=== PATIENT | male | born 1960 | race Caucasian/White ===

== ENCOUNTER 2025-03-04 13:19 | Inpatient (IN) | payer MEDICARE, MEDICAID, SELFPAY ==
[2025-03-04] VITALS (8 sets, daily range): BP systolic 112–154; BP diastolic 77–95; PULSE 70–108; RESP 16–18; TEMP 36.1–37.1; O2SAT 95–100; BMI 20.5
--- NOTE | 2025-03-04 14:11 | EKG_ITS ---
[facility] Test Date: 2025-03-04 Pat Name: CORNELIO ARANDA Department: Room: - Gender: Male [employer]: : [id number] Requested By: Chun Choudhary Order Number: [id number] Reading MD: Chun Choudhary Measurements Intervals [place] Rate: 86 P: 24 MT: 141 QRS: 54 QRSD: 111 T: 77 QT: 337 QTc: 404 Interpretive Statements SINUS RHYTHM MODERATE INTRAVENTRICULAR CONDUCTION DELAY [110+ ms QRS DURATION] Compared to ECG 09/30/2023 14:52:17 Intraventricular conduction delay now present /store/S0/[id number]/ecg/[id number].pdf
--- NOTE | 2025-03-04 14:11 | XR_ITS ---
Examination: CT abdomen with intravenous contrast CT pelvis with intravenous contrast 2-D coronal reconstructions 2-D sagittal reconstructions Date and time of exam:March 04, 2025 7002 hours Comparison July 30, 2020 INDICATIONS: Abdominal pain and vomiting blood today. CTDI: vol (mGy) 7.35 DLP: (mGycm) 309 Technique: Multiple axial sections of the abdomen and pelvis have been obtained. 64 slice high-resolution scanner used. 3 mm axial sections have been obtained, post intravenous injection 30 cc Isovue-300 2-D sagittal, coronal reconstructions obtained. Low dose protocols were performed. One or more of the following dose reduction techniques were used; automated exposure control, adjustment of the mA and/or KV according to patient size, use of iterative reconstruction technique. Findings: 20 mm bleb in the right lower lobe Retrocardiac gastric hernia Gastric mucosa in the antral region axial image 58 is thickened No focal liver lesion No gallstones No pancreatic mass Minimal nodular thickening of the adrenal glands Mild renal parenchymal scar formation No renal or ureteral calculi, no hydronephrosis Heavy abdominal aortic calcification Normal appendix No bowel obstruction Colonic diverticulosis Minimal thickening of the urinary bladder wall which may relate to the patient's prostatomegaly, transverse dimension 5.8 cm Prominent osteopenia. IMPRESSION: Antral gastritis No renal or ureteral calculi, no hydronephrosis Normal appendix No bowel obstruction or diverticulitis Moderate prostatomegaly with mild thickening of the urinary bladder wall, probably related to early outflow obstruction from the patient's prostatomegaly
--- NOTE | 2025-03-04 14:16 | PD.EDGIBLD ---
ED GI Bleed RME/HPI General Chief complaint: GI Bleed Stated complaint: VOMITTING BLOOD Time Seen by Provider: 03/04/25 13:55 Arrival date/time: 03/04/25 13:19 RME / HPI RME / HPI Narrative: 65-year-old male patient with significant history of hypertension, hiatal hernia, upper GI bleed, came in for evaluation regarding vomiting blood. Patient is being vomiting blood with blood clots, for the last 2 days, none yesterday but this morning started to be vomiting again. Patient is vomiting blood clots in front of me. It comes and goes. Patient denies any abdominal pain denies any blood in the stool. Denies any dizziness. Patient has been taking a lot of aspirin lately due to pain to the left shoulder. He told me he had no Tylenol at home that is why he is taking aspirin several tablets a day for the last 1 week. Related Data Home Medications ?Medication ?Instructions ?Recorded ?Confirmed aspirin 81 mg tablet,delayed 81 mg PO QDAY 11/23/18 11/23/18 release benazepril 40 mg tablet 40 mg PO QDAY 11/23/18 11/23/18 hydrochlorothiazide 12.5 mg capsule 12.5 mg PO QDAY 11/23/18 11/23/18 metoprolol succinate 25 mg 25 mg PO BID 11/23/18 11/23/18 tablet,extended release 24 hr omeprazole 20 mg capsule,delayed 20 mg PO QDAY 11/23/18 11/23/18 release Previous Rx's ?Medication ?Instructions ?Recorded ondansetron 4 mg disintegrating 4 mg PO Q8H PRN nausea and 09/30/23 tablet vomiting #10 tabs Allergies Allergy/AdvReac Type Severity Reaction Status Date / Time No Known Allergies Allergy Unverified 11/23/18 10:50 Review of Systems Review of Systems Narrative Review of Systems: Review of system reviewed and within normal limits except mentioned in HPI ED Exam Narrative Physical exam: VITAL SIGNS: Reviewed. GENERAL APPEARANCE: Alert and interactive, follows commands, no acute distress, HEAD AND FACE: Non-traumatic. ENT: PERRL, pink conjunctivitis, eyelid no trauma, Mucous membrane moist. NECK: Supple, nontender, no nuchal rigidity. CHEST: No tenderness, no crepitus, no paradoxical movement, no retractions. LUNGS: Clear, well ventilated, symmetric, no rales, no wheezing, no ronchi, no stridor, good breath sounds bilaterally. HEART: Regular rate, regular rhythm, no murmur, no gallops. ABDOMEN: Soft, positive bowel sounds, nondistended, no guarding, nontender, no rebound, no masses, RECTAL: Deferred. GENITAL: Deferred. NEUROLOGICAL: Gross motor function intact sensory function intact, Appropriate for age. MUSCULOSKELETAL: low back nontender, full range of motion. EXTREMITIES: Nontender, full range of motion. SKIN: Color pink, dry, no rash, no lacerations, no abrasions, no contusions. LYMPHATICS: Deferred. Course Quality Measures none Orders Category Date Time Status COVID-19 Screening Questionnaire NOW Care 03/04/25 21:[address] Screening NOW Care 03/04/25 14:11 Active Decision to Admit X1 Care 03/04/25 21:14 Completed EKG (ED ONLY) *Do not use* NOW Care 03/04/25 14:11 Completed Endoscopy Consents .On arrival Care 03/04/25 19:57 Active NPO NOW Care 03/04/25 19:37 Active NPO NOW Care 03/04/25 19:57 Active Occult Blood,Stool (Nursing) NOW Care 03/04/25 14:11 Active Consult to Gastroenterology Stat Cons 03/04/25 18:30 Ordered Diet NPO (NOW) Diet 03/04/25 19:37 Completed Diet NPO (NOW) Diet 03/04/25 19:[address] abdomen pelvis w con Stat Exams 03/04/25 14:11 Completed EKG (ED Only) Stat Exams 03/04/25 14:11 Draft US venous doppler LE BI Stat Exams 03/04/25 20:48 Completed CBC Stat Lab 03/04/25 14:28 Completed Comprehensive Metabolic Panel Stat Lab 03/04/25 14:28 Completed Partial Thromboplastin Time Stat Lab 03/04/25 14:28 Completed Prothrombin Time with INR Stat Lab 03/04/25 14:28 Completed Troponin I Stat Lab 03/04/25 14:28 Completed Type and Screen Stat Lab 03/04/25 14:28 Completed Urinalysis Stat Lab 03/04/25 21:23 Completed Metoclopramide Inj [Reglan Inj] Med 03/04/25 14:14 Discontinued 10 mg IVP X1 ONE Octreotide Acet Inj [SandoSTATIN Inj] Med 03/04/25 14:14 Discontinued 50 mcg IV X1 ONE Pantoprazole Inj [Protonix Inj] Med 03/04/25 14:14 Discontinued 80 mg IVP X1 ONE Ringers Lactated 1000 ml [Lactated Ringers] 1,000 ml Med 03/04/25 21:51 Active IV 100 mls/hr Ringers Lactated 1000 ml [Lactated Ringers] 1,000 ml Med 03/04/25 15:04 Discontinued IV 999 mls/hr Sodium Chloride 0.9% [Ns] 100 ml Med 03/04/25 14:30 Active Octreotide Acet Inj [SandoSTATIN Inj] 1,000 mcg IV 50 mcg/hr Sodium Chloride 0.9% [Ns] 100 ml Med 03/05/25 10:30 Pending Octreotide Acet Inj [SandoSTATIN Inj] 1,000 mcg IV 50 mcg/hr cefTRIAXone/D5w 1gm IV premix [Rocephin/D5w 1gm IV Med 03/04/25 14:15 Discontinued premix] 1 gm in 50 ml IV X1 Vital Signs Vital signs: Vital Signs Temperature 98.7 F 03/04/25 13:24 Pulse Rate 108 H 03/04/25 13:24 Respiratory Rate 18 03/04/25 13:24 Blood Pressure 154/86 H 03/04/25 13:24 Pulse Oximetry (%) 100 03/04/25 13:24 Oxygen Delivery Method Room Air 03/04/25 13:24 GI Bleed MDM Narrative MDM Narrative:: 65-year-old male patient with significant history of hypertension, hiatal hernia, upper GI bleed, came in for evaluation regarding vomiting blood. Patient is being vomiting blood with blood clots, for the last 2 days, none yesterday but this morning started to be vomiting again. Patient is vomiting blood clots in front of me. It comes and goes. Patient denies any abdominal pain denies any blood in the stool. Denies any dizziness. Patient has been taking a lot of aspirin lately due to pain to the left shoulder. He told me he had no Tylenol at home that is why he is taking aspirin several tablets a day for the last 1 week. Patient received IV fluids, Reglan, Protonix IV, IV Sandostatin, and Sandostatin drip, on multiple evaluation normal recurrence of vomiting blood in the ED. Patient's laboratory workup hemoglobin is normal CMP creatinine 1.4 BUN of 42 troponin 0.063 patient is not having any chest pain urinalysis no UTI CT scan of the abdomen showed Antral gastritis No renal or ureteral calculi, no hydronephrosis Normal appendix No bowel obstruction or diverticulitis Moderate prostatomegaly with mild thickening of the urinary bladder wall, probably related to early outflow obstruction from the patient's prostatomegaly Plan discussed with the patient who agrees to be admitted. I discussed this case with Dr. Tate, GI specialist on-call, who examined the patient in the emergency room. Patient data External records reviewed:: None Clinical information provided by:: patient Social determinants that could affect healthcare access:: none Patient has the following chronic illnesses:: Hypertension history of hiatal hernia How is presenting disease/condition affected by chronic disease/condition?: exacerbated by Evaluation data The following diagnostics were reviewed and interpreted by me:: lab results, radiology exam(s) and EKG tracing(s) Lab and/or radiology exams considered but not ordered:: None Interpretation Summary: EKG showed normal sinus rhythm, ventricular rate of 86 bpm, no ST segment elevation depression noted. Medications / Prescriptions Medications or Prescriptions considered but not ordered:: None Medication administrations:: Medication Administration History Acetaminophen (Acetaminophen 325 Mg Tablet) 650 mg PO Q6H PRN PRN Reason: Fever >101.5 Stop: 04/03/25 21:51 Octreotide Acetate 1,000 mcg/ (Sodium Chloride) 102 mls @ 5.1 mls/hr IV .Q20H MARIA ESTHER; Protocol Stop: 04/04/25 10:29 Octreotide Acetate 1,000 mcg/ (Sodium Chloride) 102 mls @ 5.1 mls/hr IV .Q20H ONE; Protocol Stop: 03/05/25 10:29 Last Admin: 03/04/25 14:50 Dose: 50 mcg/hr, 5.1 mls/hr Documented By: EH Lactated Ringer's (Lactated Ringers) 1,000 mls @ 100 mls/hr IV .Q10H MARIA ESTHER Stop: 03/05/25 07:50 Last Admin: 03/04/25 22:40 Dose: 100 mls/hr Documented By: AC Ondansetron HCl (Ondansetron Inj 2 Mg/Ml Inj 2 Ml) 4 mg IVP Q6H PRN; Protocol PRN Reason: NAUSEA OR VOMITING Stop: 04/03/25 21:51 Pantoprazole Sodium (Pantoprazole Inj 40 Mg Vial) 40 mg IVP QDAY MARIA ESTHER Stop: 04/04/25 08:59 Discontinued Medications Ceftriaxone Sodium/Dextrose (Rocephin/D5w 1gm Iv Premix) 1 gm in 50 mls @ 100 mls/hr IV X1 ONE Stop: 03/04/25 14:44 Last Infusion: 03/04/25 15:13 Dose: Infused Documented By: Admin: 03/04/25 14:47 Dose: 100 mls/hr Documented By: KIRSTIE Lactated Ringer's (Lactated Ringers) 1,000 mls @ 999 mls/hr IV .Q1H1M ONE Stop: 03/04/25 16:04 Last Infusion: 03/04/25 16:45 Dose: Infused Documented By: Admin: 03/04/25 15:43 Dose: 999 mls/hr Documented By: JOSIE Metoclopramide HCl (Metoclopramide Inj 5 Mg/Ml Vial 2 Ml) 10 mg IVP X1 ONE; Protocol Stop: 03/04/25 14:15 Last Admin: 03/04/25 14:38 Dose: 10 mg Documented By: Octreotide Acetate (Octreotide Acet Inj 50 Mcg/Ml Vial) 50 mcg IV X1 ONE Stop: 03/04/25 14:15 Last Admin: 03/04/25 14:39 Dose: 50 mcg Documented By: Pantoprazole Sodium (Pantoprazole Inj 40 Mg Vial) 80 mg IVP X1 ONE Stop: 03/04/25 14:15 Last Admin: 03/04/25 14:39 Dose: 80 mg Documented By: Reglan pantoprazole IV fluids ceftriaxone IV Sandostatin Consultations Consultation(s) initiated? (list below): Yes Consultation #1 (Physician, Specialty, Details): Dr. Tate, GI specialist on-call, thank you Dr. Tate Diagnosis GI bleed differential diagnosis: esophageal varices, Kelly-Taylor syndrome and Upper gastrointestinal hemorrhage Most likely diagnosis given after review of the tests above:: Vomiting blood, upper GI bleed Admission Indicated Admission indicated?: indicated Admission Request Was there a request for admission?: Yes Admission Attestation Admission request attestation: Discussed case with [Dr. Stephenson] from Hospitalist service regarding admission. Discussed patients ED course, exam findings, labs, and radiology results. The Hospitalist [agrees] to accept the patient for admission. Disposition Plan Disposition Plan: Admit Discharge Plan Plan Patient Disposition: Admit Acute Care w/in Hospital Problem List Clinical Impression: Acute upper GI bleed
[2025-03-04] MEDS: METOCLOPRAMIDE INJ 5 MG/ML VIAL 2 ML 10 MG IVP (14:38)
[2025-03-04] MEDS: OCTREOTIDE ACET INJ 50 mCg/ML VIAL IV (14:39)
[2025-03-04] MEDS: PANTOPRAZOLE INJ 40 MG VIAL 80 MG IVP (14:39)
[2025-03-04 14:40] LABS: Basophils % (Auto) 0 % (0-2.5); Eosinophils % (Auto) 0 % (0-10); Hematocrit 42.5 % (41.0-53.0); Immature Granulocytes % (Auto) 1 % (0-0); Immature Granulocytes Auto 0.08 Thou/mm3 (0.00-0.00); Lymphocytes % (Auto) 9 % (10-50); Mean Corpuscular HGB Conc 35.3 g/dl (31.0-37.0); Mean Corpuscular Hemoglobin 29.6 pg (25.0-35.0); Mean Corpuscular Volume 84 fL (80-100); Monocytes # (Auto) 0.5 Thou/mm3 (0.0-0.8); Monocytes % (Auto) 5 % (0-12); Neutrophils # (Auto) 9.4 Thou/mm3 (1.8-7.7); Neutrophils % (Auto) 85 % (37-80); Nucleated Red Blood Cell % 0 /100 WBC (0); Platelet Count 216 Thou/mm3 (140-440); RDW Standard Deviation 51.1 fL (35.1-43.9); Red Blood Count 5.06 Miln/mm3 (4.50-5.90); White Blood Count 11.1 Thou/mm3 (3.8-10.6)
[2025-03-04] MEDS: cefTRIAXone/D5w 1gm IV premix 1 GM/50 ML BAG IV (14:47)
[2025-03-04] MEDS: OCTREOTIDE ACET INJ 1,000 MCG in SODIUM CHLORIDE 0.9% 100 ML 5.1 MCG IV (14:50)
[2025-03-04 14:53] LABS: INR 1.6 (0.9-1.3); Partial Thromboplastin Time 29.6 Seconds (22.0-36.0); Prothrombin Time 16.7 Seconds (9.0-12.2)
[2025-03-04 15:01] LABS: Albumin, Serum 4.8 gm/dL (3.4-4.8); Albumin/Globulin Ratio 1.5 (1.2-2.2); Alkaline Phosphatase 64 U/L (46-116); Anion Gap 13 (7-16); Aspartate Amino Transferase 26 U/L (0-34); BUN/Creatinine Ratio 30 Ratio (12-20); Bilirubin,Total 0.2 mg/dL (0.3-1.2); Blood Urea Nitrogen 42 mg/dL (9-23); Calcium 9.3 mg/dL (8.3-10.6); Calcium (Corrected) 9.3 mg/dL (8.5-10.1); Carbon Dioxide 23.7 mMol/L (20.0-31.0); Chloride 101 mMol/L (98-107); Creatinine (Component) 1.4 mg/dL (0.6-1.3); Estimated Creatinine Clearance 52.6 mL/min (>60); Globulin 3.1 gm/dL (2.3-3.5); Glucose 153 mg/dL (74-106); Osmolality,Calculated 289 (275-295); Potassium 3.9 mMol/L (3.4-5.1); Sodium 138 mMol/L (136-145); Total Protein 7.9 gm/dL (5.7-8.2); eGFR 55 See Note
[2025-03-04 15:03] LABS: Troponin I 0.063 ng/mL (0.0-0.045)
[2025-03-04 15:07] LABS: Alanine Aminotransferase 9 U/L (10-49)
[2025-03-04] MEDS: RINGERS LACTATED 1000 ML 1,000 ML 999 ML IV (15:43)
--- NOTE | 2025-03-04 19:10 | PC.NURSE ---
ASSUMED CARE OF PATIENT, PT ALERT/ORIENTED AND IN NO ACUTE DISTRESS, PT STATES HE STARTED VOMITING BLOOD TODAY WITH MILD ABDOINAL PAIN, PT CURRENTLY HAS OCTEOTRIDE RUNNING WITH NO ISSUES, POSSIBLE PLANNING FOR ADMIT, WAITING FOR GI DR BECKWITH, WILL CONTINUE WITH PLAN OF CARE
--- NOTE | 2025-03-04 19:53 | PD.IMCONS ---
HPI Data of Consult Primary Care Provider: Shagufta Kelley NP Consult Narrative Reason for consult: Hematemesis History of present illness: 65-year-old male came into the emergency room because of hematemesis He also had hematemesis in the ER all the presenting hemoglobin hematocrit is very reasonable at 15.0 and 42.5 and a platelet count 216,000 Patient does have a history of previous GI bleed essential hypertension and hiatal hernia Patient has been taking a lot of aspirin for the left shoulder pain cc:: cc: Review of Systems Review of Systems Systems Reviewed: All systems reviewed, normal except as documented Past Medical History Surgical History OTHER SURGICAL HX: As in the history of present illness Meds Home Medications and Allergies Home Medications ?Medication ?Instructions ?Recorded ?Confirmed ?Type aspirin 81 mg tablet,delayed 81 mg PO QDAY 11/23/18 11/23/18 History release benazepril 40 mg tablet 40 mg PO QDAY 11/23/18 11/23/18 History hydrochlorothiazide 12.5 mg capsule 12.5 mg PO QDAY 11/23/18 11/23/18 History metoprolol succinate 25 mg 25 mg PO BID 11/23/18 11/23/18 History tablet,extended release 24 hr omeprazole 20 mg capsule,delayed 20 mg PO QDAY 11/23/18 11/23/18 History release Allergies Allergy/AdvReac Type Severity Reaction Status Date / Time No Known Allergies Allergy Unverified 11/23/18 10:50 Exam Vital Signs Temp Pulse Resp BP Pulse Ox O2 Del Method 97.0 F 79 16 147/95 H 100 Room Air 03/04/25 18:34 03/04/25 19:09 03/04/25 19:09 03/04/25 19:09 03/04/25 19:09 03/04/25 19:09 Routine Respiratory Exam Comments: Normal to auscultation Routine Abdominal Exam Comments: Soft nontender Results Labs 03/04/25 14:28 03/04/25 14:28 Labs: Short CBC 03/04/25 Range/Units 14:28 WBC 11.1 H (3.8-10.6) Thou/mm3 Hgb 15.0 (13.5-16.0) g/dL Hct 42.5 (41.0-53.0) % Plt Count 216 (140-440) Thou/mm3 BMP 03/04/25 14:28 Sodium 138 Potassium 3.9 Chloride 101 Carbon Dioxide 23.7 BUN 42 H Creatinine 1.4 H Glucose 153 H Calcium 9.3 Cardiac Enzymes 03/04/25 Range/Units 14:28 Troponin I 0.063 H* (0.0-0.045) ng/mL Liver Function 03/04/25 Range/Units 14:28 Total Bilirubin 0.2 L (0.3-1.2) mg/dL AST 26 (0-34) U/L ALT 9 L (10-49) U/L Alkaline Phosphatase 64 (46-116) U/L Albumin 4.8 (3.4-4.8) gm/dL Assessment and Plan Additional Assessment & Plan Additional Plan: # Hematemesis Plan Serial CBCs IV Protonix N.p.o. midnight tonight except p.o. meds Consent obtained for fiberoptic esophagogastroduodenoscopy with possible biopsy possible therapeutic intervention under intravenous moderate sedation Other medical problems include Essential hypertension Thank you very much for the opportunity to participate in the care of this patient
--- NOTE | 2025-03-04 20:06 | PC.NURSE ---
DR BECKWITH AT BEDSIDE, STATES PATIENT NPO AFTER MIDNIGHT AND GOT CONSENT FOR ENDOSCOPY IN AM
--- NOTE | 2025-03-04 20:48 | XR_ITS ---
Examination: Venous duplex lower extremity sonogram, bilateral. Date and time of exam: March 04, 2025 2125 hours INDICATIONS: Chest pain and shortness of breath, clinical diagnosis DVT Technique: Multiple sonographic images of the deep venous system have been obtained. B-mode/2-D grayscale imaging of vascular structures and Doppler spectral analysis (waveforms) and color performed Both legs are examined. Findings: Deep venous systems do not demonstrate abnormal echogenicity. All visualized deep veins exhibit compressibility. All visualized deep veins exhibit augmentation. Impression: Negative for deep vein thrombosis
[2025-03-04 21:38] LABS: Collection Type, Urine Clean Catch
--- NOTE | 2025-03-04 21:50 | PD.RESHP ---
Documentation for date of: 03/04/25 HPI History of Present Illness Chief complaint: Hematemesis History of present illness: 65-year-old male with significant past medical history of hypertension, hiatal hernia s/p repair, GERD, chronic smoker presented to the hospital with chief complaints of vomiting of blood since 3 days. Patient reported that he is having left shoulder pain since 1 month for which he is taking aspirin since 4 weeks and took few doses of Alleve a week before the day of hospital admission. Patient noticed vomiting of kade blood clots 3 days ago and noted to have multiple episodes since then. As patient continued to have multiple episodes of vomiting of blood, stopped taking aspirin on the day of admission despite of which patient continued to have bloody emesis for which patient came to the ED for further evaluation and management. Denies abdominal pain, blood discoloration or blood in the stools, similar episodes in the past, recent weight loss, altered bowel habits. Patient reported that he had hiatal hernia repair multiple times about 6 to 7 years ago and since then he is having reflux for which he is using Pepcid and stopped taking it 1 week ago as patient ran out of the medication. Last visit to primary care provider is 1 year back. ED course: - Vitals at the time of admission are significant for blood pressure 154/86 mmHg, pulse rate 108 bpm - Labs are significant for WBC 11.1, Hb 15, platelets 216, INR 1.6, BUN 42, creatinine 1.4 - CT abdomen/pelvis showed antral gastritis, colonic diverticulosis, retrocardiac gastric hernia. - In the ED, patient was given 80 Mg of pantoprazole, 1 L of LR bolus and started on octreotide drip Past medical history: Hypertension, GERD Past surgical history: Hiatal hernia repair Social history: Actively smoking 1 pack a day, drinks 1 beer a day. Denies any other illicit drug abuse. Lives at home with his partner Allergies: NKDA Review of Systems Review of Systems Systems Reviewed: All systems reviewed, normal except as documented Past Medical History Past Medical History CARDIAC: Positive Cardiac Disorders, Peripheral Vascular Disease (vascular stent, unsure which leg) and Hypertension (NON-COMPLIANT) GASTROINTESTINAL: Positive Gastrointestinal Bleed and Hiatal Hernia MUSCULOSKELETAL: Positive Fractures (left index finger amputated, right hand fracture) OTHER HISTORY: Positive MRSA (right arm 2006), Chicken Pox, Measles and Mumps Family History FAMILY HISTORY: Positive Family Cardiac Disorders (dad-OR) and Family Cancer (brother-melanoma) Surgical History SURGICAL: Positive Tonsillectomy Social History SMOKING STATUS: Heavy (> 1 pack/day) SUBSTANCE USE: does not use Exam Vital Signs Temp Pulse Resp BP Pulse Ox O2 Del Method 97.0 F 77 18 114/79 97 Room Air 03/04/25 18:34 03/04/25 21:14 03/04/25 21:14 03/04/25 21:14 03/04/25 21:14 03/04/25 21:14 Narrative Exam General: Awake. HEENT: Normocephalic, atraumatic, mucous membranes moist. Heart: Regular rate and rhythm, no murmurs. Lungs: Clear to auscultation with no wheezing or crackles. Abdomen: Soft, nondistended, nontender, positive bowel sounds. ?No guarding or rebound tenderness. Neurologic: Alert and oriented x3, no gross neurological deficit, and patient able to move all 4 extremities. Extremities: No edema. 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 Results: Labs 03/04/25 14:28 03/04/25 14:28 Labs: Short CBC 03/04/25 Range/Units 14:28 WBC 11.1 H (3.8-10.6) Thou/mm3 Hgb 15.0 (13.5-16.0) g/dL Hct 42.5 (41.0-53.0) % Plt Count 216 (140-440) Thou/mm3 BMP 03/04/25 14:28 Sodium 138 Potassium 3.9 Chloride 101 Carbon Dioxide 23.7 BUN 42 H Creatinine 1.4 H Glucose 153 H Calcium 9.3 Cardiac Enzymes 03/04/25 Range/Units 14:28 Troponin I 0.063 H* (0.0-0.045) ng/mL Liver Function 03/04/25 Range/Units 14:28 Total Bilirubin 0.2 L (0.3-1.2) mg/dL AST 26 (0-34) U/L ALT 9 L (10-49) U/L Alkaline Phosphatase 64 (46-116) U/L Albumin 4.8 (3.4-4.8) gm/dL Quality Measures Quality Measures VTE prophylaxis Advance care planning discussed with:: patient Medications Home Medications and Allergies Home Medications ?Medication ?Instructions ?Recorded ?Confirmed ?Type aspirin 81 mg tablet,delayed 81 mg PO QDAY 11/23/18 11/23/18 History release benazepril 40 mg tablet 40 mg PO QDAY 11/23/18 11/23/18 History hydrochlorothiazide 12.5 mg capsule 12.5 mg PO QDAY 11/23/18 11/23/18 History metoprolol succinate 25 mg 25 mg PO BID 11/23/18 11/23/18 History tablet,extended release 24 hr omeprazole 20 mg capsule,delayed 20 mg PO QDAY 11/23/18 11/23/18 History release Allergies Allergy/AdvReac Type Severity Reaction Status Date / Time No Known Allergies Allergy Unverified 11/23/18 10:50 Visit Medications Octreotide Acetate 1,000 mcg/ (Sodium Chloride) 102 mls @ 5.1 mls/hr IV .Q20H MARIA ESTHER; Protocol Stop: 04/04/25 10:29 Octreotide Acetate 1,000 mcg/ (Sodium Chloride) 102 mls @ 5.1 mls/hr IV .Q20H ONE; Protocol Stop: 03/05/25 10:29 Last Admin: 03/04/25 14:50 Dose: 50 mcg/hr, 5.1 mls/hr Discontinued Medications Ceftriaxone Sodium/Dextrose (Rocephin/D5w 1gm Iv Premix) 1 gm in 50 mls @ 100 mls/hr IV X1 ONE Stop: 03/04/25 14:44 Last Infusion: 03/04/25 15:13 Dose: Infused Lactated Ringer's (Lactated Ringers) 1,000 mls @ 999 mls/hr IV .Q1H1M ONE Stop: 03/04/25 16:04 Last Infusion: 03/04/25 16:45 Dose: Infused Metoclopramide HCl (Metoclopramide Inj 5 Mg/Ml Vial 2 Ml) 10 mg IVP X1 ONE; Protocol Stop: 03/04/25 14:15 Last Admin: 03/04/25 14:38 Dose: 10 mg Octreotide Acetate (Octreotide Acet Inj 50 Mcg/Ml Vial) 50 mcg IV X1 ONE Stop: 03/04/25 14:15 Last Admin: 03/04/25 14:39 Dose: 50 mcg Pantoprazole Sodium (Pantoprazole Inj 40 Mg Vial) 80 mg IVP X1 ONE Stop: 03/04/25 14:15 Last Admin: 03/04/25 14:39 Dose: 80 mg Assessment & Plan Plan 65-year-old male with significant past medical history of hypertension, hiatal hernia s/p repair, GERD, chronic smoker presented to the hospital with chief complaints of vomiting of blood since 3 days # GI bleed, likely upper GI # Gastritis versus gastric ulcer - Presented to the hospital with chief complaints of hematemesis - Denies blackish discoloration or bloody bowel movements, abdominal pain - Denies similar history in the past - Vitals are stable at the time of admission. Physical examination remains unremarkable - Labs at admission showed hemoglobin 15, platelets 216, INR 1.6 - CT abdomen/pelvis showed antral gastritis, colonic diverticulosis - Rockall score is 1 - In the ED, patient is given 80 Mg of IV pantoprazole and 1 L of LR bolus, started on octreotide drip Plan - Hydrology Professor, Dr. Tate was consulted and he recommended endoscopy tomorrow - Kept on n.p.o. - Pantoprazole 40 Mg IV daily, will continue octreotide drip till endoscopy and will continue based on findings - Started on IV fluids, LR at 100 mL/h - Monitor CBC and transfuse if Hb less than 7 #YOHANA, likelly prerenal versus CKD - At the time of admission, BUN is 42, creatinine 1.4 - Baseline creatinine in in 2022 is 1 Plan - 1 L LR boluses given in the ED - Renal ultrasound ordered - Started on LR at 100 mL/h - Monitor renal functions and renally dose medications - Strict input and output is ordered # History of hypertension - Patient does not know the exact name of medication - Home medication reconciliation is ordered - Initial blood pressure in the ED is 154/86 mmHg, later blood pressure came back to within normal limits without any medications Plan - Will continue to monitor blood pressures for now - Will add medications as needed Hospital Maintenance: Dispo: Tele DVT ppx: SCD GI ppx: Panoprazole Diet: NPO for endoscopy IV lines: Peripheral Code status: Full Patient plan of care was discussed with the attending physician, Dr. Anderson Stephenson, PGY1 Attending Provider Attestation/Addendum I have examined the patient, reviewed labs and imaging findings, discussed the case with the resident(s), and reviewed entered orders. I agree with the plan of care as outlined in this note, with these additional summaries/recommendations: 65-year-old male with past medical history of hiatal hernia, GERD, chronic smoker, recent significant NSAID use presents to the ED with chief complaint of hematemesis times multiple episodes. Patient reports recent NSAID use secondary to shoulder pain and has been taking excessive amounts of them. Labs also significant for YOHANA and mild troponin elevation without chest pain, likely type II. GI was consulted in the ER who recommended admission for further workup and management of hematemesis with blood clots. See patient n.p.o. and start on Protonix, close monitoring of H&H. Tomas Barron MD
[2025-03-04 21:58] LABS: Bilirubin,Urine Negative (Negative); Blood,Urine Negative (Negative); Clarity,Urine Clear (Clear/Hazy); Color,Urine Yellow (Lt Yel-Yel); Glucose, Urine Negative (Negative); Ketones,Urine 1+ (Negative); Leukocyte Esterase,Urine Negative (Negative); Nitrite,Urine Negative (Negative); Protein,Urine Trace (Neg - Trace); RBC,Urine 4 /hpf (0-3); Specific Gravity,Urine 1.046 (1.001-1.035); Squamous Epithelial Cell,Urine 1 /hpf (0-5); Urobilinogen,Urine Negative mg/dL (0.0-1.0); WBC,Urine 1 /hpf (0-5)
--- NOTE | 2025-03-04 22:12 | XR_ITS ---
Examination: Abdomen sonogram, Limited Date and time of exam: March 04, 2025 10:30 PM INDICATIONS: CT abdomen and pelvis study today antral gastritis Technique: Real-time sevilla scale transabdominal sonographic images of the upper abdomen obtained. Findings: Normal gallbladder Normal common bile duct 0.4 cm Pancreas obscured by bowel gas Liver 16 cm fatty infiltration no focal liver lesions Normal bilateral renal horn meniscal Patent IVC IMPRESSION: Normal gallbladder Fatty liver
[2025-03-04] MEDS: RINGERS LACTATED 1000 ML 1,000 ML 100 ML IV (22:40)
--- NOTE | 2025-03-04 22:43 | PC.NURSE ---
report given to floor nurse alexander
[2025-03-05] VITALS (35 sets, daily range): BP systolic 97–158; BP diastolic 69–124; PULSE 54–89; RESP 12–20; TEMP 36–37; O2SAT 94–99
[2025-03-05 06:01] LABS: Basophils # (Auto) 0.1 Thou/mm3 (0.0-0.2); Basophils % (Auto) 1 % (0-2.5); Eosinophils % (Auto) 0 % (0-10); Hemoglobin 12.2 g/dL (13.5-16.0); Immature Granulocytes % (Auto) 1 % (0-0); Immature Granulocytes Auto 0.07 Thou/mm3 (0.00-0.00); Lymphocytes # (Auto) 1.6 Thou/mm3 (1.0-4.8); Lymphocytes % (Auto) 20 % (10-50); Mean Corpuscular HGB Conc 34.9 g/dl (31.0-37.0); Mean Corpuscular Volume 86 fL (80-100); Monocytes # (Auto) 0.6 Thou/mm3 (0.0-0.8); Monocytes % (Auto) 8 % (0-12); Neutrophils # (Auto) 5.6 Thou/mm3 (1.8-7.7); Neutrophils % (Auto) 70 % (37-80); Nucleated Red Blood Cell % 0 /100 WBC (0); Platelet Count 243 Thou/mm3 (140-440); Red Blood Count 4.07 Miln/mm3 (4.50-5.90)
[2025-03-05 06:13] LABS: Glucose Estimated Average 120 mg/dL (80-131); Hemoglobin A1C 5.8 % Hgb (4.8-6.0)
[2025-03-05 06:20] LABS: INR 1.4 (0.9-1.3); Partial Thromboplastin Time 32.5 Seconds (22.0-36.0); Prothrombin Time 15.4 Seconds (9.0-12.2)
[2025-03-05 06:22] LABS: Alanine Aminotransferase 8 U/L (10-49); Albumin, Serum 4.1 gm/dL (3.4-4.8); Albumin/Globulin Ratio 1.5 (1.2-2.2); Alkaline Phosphatase 51 U/L (46-116); Anion Gap 11 (7-16); Aspartate Amino Transferase 21 U/L (0-34); BUN/Creatinine Ratio 32 Ratio (12-20); Bilirubin,Total 0.3 mg/dL (0.3-1.2); Blood Urea Nitrogen 32 mg/dL (9-23); Calcium 9.2 mg/dL (8.3-10.6); Calcium (Corrected) 9.2 mg/dL (8.5-10.1); Carbon Dioxide 25.1 mMol/L (20.0-31.0); Chloride 100 mMol/L (98-107); Estimated Creatinine Clearance 73.1 mL/min (>60); Globulin 2.7 gm/dL (2.3-3.5); Glucose 125 mg/dL (74-106); Magnesium 1.8 mg/dL (1.6-2.6); Osmolality,Calculated 279 (275-295); Phosphorous 2.4 mg/dL (2.4-5.1); Potassium 3.5 mMol/L (3.4-5.1); Sodium 136 mMol/L (136-145); Thyroid Stimulating Hormone 0.18 uIU/mL (0.55-4.78); Total Protein 6.8 gm/dL (5.7-8.2); eGFR > 60 See Note
[2025-03-05 06:33] LABS: Cardiac Risk Estimate 3.4 RATIO (4.0-6.7); Cholesterol 120 mg/dL (132-200); HDL Cholesterol 35 mg/dL (40-60); LDL Cholesterol,Calculated 64 mg/dL (0-130); Triglycerides 103 mg/dL (30-150)
[2025-03-05 08:41] LABS: Iron 89 mcg/dL (65-175); Percent Iron Saturation 28 % (20-55); Total Iron Binding Capacity 314 mcg/dL (250-425); Unsaturated Iron Binding 225 (225-295)
--- NOTE | 2025-03-05 10:05 | SUR.PHASEI ---
0930: pt arrived to PACU via gurney drowsy but arouses to voice, breathing unlabored, report from Madison RN 0950: pt able to tolerate ice chips without difficulty swallowing or n/v 1000:pt drowsy but arouses to voice, breathing unlabored, VS stable, pt denies pain and nausea, report called to Yolie LEWIS 1005: pt awake, alert, talkative, able to follow commands, pt does not voice any complaints, pt transferred to room at this time.
[2025-03-05] MEDS: SUCRALFATE SUSP 1 GM/10 ML UDC PO ×3 (10:20→20:12)
[2025-03-05] MEDS: MG HYD/AL HYD/SIME (Maalox Reg) SUSP 30 ML UDC PO ×3 (10:20→20:11)
[2025-03-05] MEDS: PANTOPRAZOLE/NS 80MG IV PREMIX 80 MG/100 ML BAG 10 MG IV ×2 (10:21→18:53)
[2025-03-05] MEDS: OCTREOTIDE ACET INJ 1,000 MCG in SODIUM CHLORIDE 0.9% 100 ML 5.1 MCG IV (11:22)
--- NOTE | 2025-03-05 11:49 | ESPR_ITS ---
Documentation for date of: 03/05/25 Subjective Subjective Interval history: Patient seen today at the bedside found awake, alert, orientedx3. No overnight events reported. Vitals and labs reviewed. Patient had EGD this morning and was found with a lot of blood throughout the esophagus and proximal body of the stomach and distal body with clots, ulcer in the proximal body of the stomach with clot. GI recommends at this time keeping the patient n.p.o. starting Carafate and Maalox transfuse 1 unit of fresh frozen plasma and platelets. Will continue with octreotide and Protonix drip at this time. WIll continue to monitor H&H Exam Vital Signs Temp Pulse Resp BP Pulse Ox O2 Del Method O2 Flow Rate 97.6 F 74 16 125/92 H 97 Room Air 6 03/05/25 09:30 03/05/25 10:00 03/05/25 10:00 03/05/25 10:00 03/05/25 10:00 03/05/25 07:40 03/05/25 09:25 Narrative Exam Physical Exam GENERAL: NAD, AAOx3 HEENT: Moist mucosa. Eyes open, symmetrical, & clear CARDIO: Heart RRR, no obvious murmurs PULM: No noted coughing/dyspnea CTA B/L, no R/W/R GI: Abdomen soft, nondistended, no pain on palpation. 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 Pedal pulses present B/L NEURO: AAOx3, no focal neuro deficits, able to move all 4 extremities Objective Labs 03/05/25 14:48 03/05/25 05:21 Labs: Laboratory Results - last 24 hr 03/04/25 03/04/25 03/05/25 14:28 21:23 05:21 WBC 11.1 H 8.0 RBC 5.06 4.07 L Hgb 15.0 12.2 L D Hct 42.5 35.0 L MCV 84 86 MCH 29.6 30.0 MCHC 35.3 34.9 RDW Std Deviation 51.1 H 52.0 H Plt Count 216 243 Neut % (Auto) 85 H 70 Lymph % (Auto) 9 L 20 [place] % (Auto) 5 8 Eos % (Auto) 0 0 Baso % (Auto) 0 1 Neut # (Auto) 9.4 H 5.6 Lymph # (Auto) 1.0 1.6 [place] # (Auto) 0.5 0.6 Eos # (Auto) 0.0 0.0 Baso # (Auto) 0.0 0.1 Immature Gran # (Auto) 0.08 H 0.07 H Absolute Nucleated RBC 0.00 0.00 Immature Gran % 1 H 1 H Nucleated RBC % 0 0 PT 16.7 H 15.4 H INR 1.6 H 1.4 H APTT 29.6 32.5 Sodium 138 136 Potassium 3.9 3.5 Chloride 101 100 Carbon Dioxide 23.7 25.1 Anion Gap 13 11 BUN 42 H 32 H Creatinine 1.4 H 1.0 Estim Creat Clear Calc 52.6 L 73.1 eGFR 55 L > 60 BUN/Creatinine Ratio 30 H 32 H Glucose [address] Glu mg/dL 120 Hemoglobin A1c 5.8 Calculated Osmolality 289 279 Calcium 9.3 9.2 Corrected Calcium 9.3 9.2 Phosphorus 2.4 Magnesium 1.8 Iron TIBC Iron Saturation Unsat Iron Binding Total Bilirubin 0.2 L 0.3 AST 26 21 ALT 9 L 8 L Alkaline Phosphatase 64 51 D Troponin I 0.063 H* Total Protein 7.9 6.8 Albumin 4.8 4.1 D Globulin 3.1 2.7 Albumin/Globulin Ratio 1.5 1.5 Triglycerides 103 Cholesterol 120 L LDL Cholesterol, Calc 64 HDL Cholesterol 35 L Cholesterol/HDL Ratio 3.4 L TSH 0.18 L Ur Collection Type Clean Catch Urine Color Yellow Urine Clarity Clear Urine pH 6.0 Ur Specific Wilbur 1.046 H Urine Protein Trace Urine Glucose (UA) Negative Urine Ketones 1+ A Urine Blood Negative Urine Nitrite Negative Urine Bilirubin Negative Urine Urobilinogen (Auto) Negative Ur Leukocyte Esterase Negative Urine RBC 4 H Urine WBC 1 Ur Squamous Epith Cells 1 Urine Bacteria None Blood Type O Positive Antibody Screen NEGATIVE Blood Bank Wristband ID Yes 03/05/25 05:48 WBC RBC Hgb Hct MCV MCH MCHC RDW Std Deviation Plt Count Neut % (Auto) Lymph % (Auto) [place] % (Auto) Eos % (Auto) Baso % (Auto) Neut # (Auto) Lymph # (Auto) [place] # (Auto) Eos # (Auto) Baso # (Auto) Immature Gran # (Auto) Absolute Nucleated RBC Immature Gran % Nucleated RBC % PT INR APTT Sodium Potassium Chloride Carbon Dioxide Anion Gap BUN Creatinine Estim Creat Clear Calc eGFR BUN/Creatinine Ratio Glucose Estimated Ave Glu mg/dL Hemoglobin A1c Calculated Osmolality Calcium Corrected Calcium Phosphorus Magnesium Iron 89 TIBC 314 Iron Saturation 28 Unsat Iron Binding 225 Total Bilirubin AST ALT Alkaline Phosphatase Troponin I Total Protein Albumin Globulin Albumin/Globulin Ratio Triglycerides Cholesterol LDL Cholesterol, Calc HDL Cholesterol Cholesterol/HDL Ratio TSH Ur Collection Type Urine Color Urine Clarity Urine pH Ur Specific [place]bur Urine Protein Urine Glucose (UA) Urine Ketones Urine Blood Urine Nitrite Urine Bilirubin Urine Urobilinogen (Auto) Ur Leukocyte Esterase Urine RBC Urine WBC Ur Squamous Epith Cells Urine Bacteria Blood Type Antibody Screen Blood Bank Wristband ID Quality Measures Quality Measures none Advance care planning discussed with:: patient Assessment & Plan Assessment Current Active Medications: Generic Name Dose Route Start Last Admin Trade Name Freq PRN Reason Stop Dose Admin Acetaminophen 650 mg 03/04/25 21:52 Acetaminophen 325 Mg Tablet PO 04/03/25 21:51 Q6H PRN Fever >101.5 Al Hydrox/Mg Hydrox/Simethicone 30 ml 03/05/25 09:00 03/05/25 11:18 Mg Hyd/Al Hyd/Maximo (Maalox Reg) Susp 30 Ml Udc PO 04/04/25 08:59 Not Given QID MARIA ESTHER Octreotide Acetate 1,000 mcg/ 102 mls @ 5.1 mls/hr 03/05/25 10:30 03/05/25 11:22 Sodium Chloride IV 04/04/25 10:29 50 mcg/hr .Q20H MARIA ESTHER 5.1 mls/hr Administration Protocol 50 MCG/HR Pantoprazole Sodium 80 mg in 100 mls @ 10 mls/hr 03/05/25 09:52 03/05/25 10:21 Protonix/Ns 80mg Iv Premix IV 03/08/25 07:51 10 mls/hr Q10H MARIA ESTHER Administration Ondansetron HCl 4 mg 03/04/25 21:52 Ondansetron Inj 2 Mg/Ml Inj 2 Ml IVP 04/03/25 21:51 Q6H PRN NAUSEA OR VOMITING Protocol Pantoprazole Sodium 40 mg 03/05/25 09:00 03/05/25 09:54 Pantoprazole Inj 40 Mg Vial IVP 04/04/25 08:59 Not Given QDAY MARIA ESTHER Sucralfate 1 gm 03/05/25 09:00 03/05/25 11:18 Sucralfate Susp 1 Gm/10 Ml Udc PO 04/04/25 08:59 Not Given QID MARIA ESTHER Plan 65-year-old male with significant past medical history of hypertension, hiatal hernia s/p repair, GERD, chronic smoker presented to the hospital with chief complaints of vomiting of blood since 3 days #GI bleed, likely upper GI #Gastric ulcer Presented to the hospital with chief complaints of hematemesis Denies blackish discoloration or bloody bowel movements, abdominal pain Denies similar history in the past Vitals are stable at the time of admission. Physical examination remains unremarkable Labs at admission showed hemoglobin 15, platelets 216, INR 1.6 CT abdomen/pelvis showed antral gastritis, colonic diverticulosis Rockall score is 1 In the ED, patient is given 80 Mg of IV pantoprazole and 1 L of LR bolus, started on octreotide drip EGD showed blood throughout the esophagus and stomach found with an ulcer with blood clots and was clipped ? GI consulted, appreciate recommendations ? Keep n.p.o. ? Protonix drip ? Octreotide drip ? Follow-up H&H ? IVF's #Acute Kidney injury versus CKD BUN 42, creatinine 1.4, baseline seems to be around 1 from 2022 Patient does have an enlarged prostate found on CT states sometimes has difficulty initiating urination however here he is urinating and has no urinary symptoms ? on IVF ? Avoid nephrotoxins ? Renally dose medications ? FENa/Urea, urine microscopy if considering intrarenal etiology ? Pending renal ultrasound for hydronpehrosis if possible postrenal etiology #Hypertension At home patient uses benazepril 40 mg daily, hydrochlorothiazide, metoprolol succinate, however proper medication reconciliation is still pending ? Follow-up med rec ? Will resume antihypertensives as tolerated currently normotensive Hospital Maintenance: Dispo: Tele DVT ppx: SCD GI ppx: Panoprazole Diet: NPO for endoscopy IV lines: Peripheral Code status: Full Case discussed with my attending Dr. Sharyn Velasquez MD PGY-1 Attending Provider Attestation/Addendum Kemi, Marcia Coles DO, attest that I was physically present for the borrego portions of the service and evaluated the patient with the resident and I reviewed and discussed the case with the resident and agree with the resident's findings and plans of care as documented above Patient seen and eval this a.m. He states that he has a complicated history of hiatal hernia repair that was complicated by esophageal stenosis requiring surgery at [facility]. Patient states that he had 2 days of hematemesis with large clots. He describes as having thrown up a bowl of tomato soup that was dark red. Patient states that he has not had hematemesis in the past. However, he endorses using Aleve at home. He states that he was not aware that it can cause GI bleed. Patient underwent endoscopy this morning during which patient was found to have a large clot in his stomach and an ulcer in the proximal body of the stomach. This was cauterized with clips placed. Will watch patient closely at this time and keep NPO. Patient is to receive 1 unit of FFP and platelets. Continue with Carafate and Maalox, as well as octreotide and Protonix drip. Patient states that he drinks 1 beer a day. Will trend H&H. Patient is currently hemodynamically stable. Will continue to monitor volume status as well. He currently denies any fevers, chills, chest pain, shortness of breath, abdominal pain,, lightheadedness otherwise. CT abdomen pelvis does show also evidence of moderate BPH with mild thickening of the urinary bladder wall possibly related to early outflow obstruction. Patient does endorse having increased urinary frequency and straining. Will start patient on tamsulosin if blood pressure permits.
--- NOTE | 2025-03-05 13:39 | XR_ITS ---
Examination: Retroperitoneal ultrasound, complete Technique: Multiple high resolution grayscale images of the retroperitoneum obtained, including kidneys and bladder. Exam date and time:March 05, 2025 1412 hours INDICATIONS: Diagnosis acute renal insufficiency FINDINGS: Right kidney 11.2 cm cortex 1.3 cm Left kidney 10.9 cm cortex 1.9 cm No hydronephrosis or renal calculi Contracted urinary bladder IMPRESSION: Bilateral renal cortical thinning Mild bilateral renal parenchymal scar formation No renal calculi or hydronephrosis
[2025-03-05 15:19] LABS: Hematocrit 32.6 % (41.0-53.0); Hemoglobin 11.4 g/dL (13.5-16.0)
[2025-03-06] VITALS: PULSE 59
[2025-03-06] MEDS: PANTOPRAZOLE/NS 80MG IV PREMIX 80 MG/100 ML BAG 10 MG IV ×3 (02:49→23:09)
[2025-03-06 04:00] VITALS: BP 155/97; PULSE 54; PULSE 55; RESP 19; TEMP 36.1; O2SAT 94
[2025-03-06] MEDS: SUCRALFATE SUSP 1 GM/10 ML UDC PO ×4 (05:05→20:42)
[2025-03-06] MEDS: MG HYD/AL HYD/SIME (Maalox Reg) SUSP 30 ML UDC PO ×4 (05:05→20:42)
[2025-03-06 06:40] LABS: Basophils # (Auto) 0.1 Thou/mm3 (0.0-0.2); Basophils % (Auto) 1 % (0-2.5); Eosinophils # (Auto) 0.1 Thou/mm3 (0.0-0.5); Eosinophils % (Auto) 2 % (0-10); Hematocrit 36.5 % (41.0-53.0); Hemoglobin 12.4 g/dL (13.5-16.0); Immature Granulocytes % (Auto) 1 % (0-0); Immature Granulocytes Auto 0.06 Thou/mm3 (0.00-0.00); Lymphocytes # (Auto) 1.8 Thou/mm3 (1.0-4.8); Lymphocytes % (Auto) 28 % (10-50); Mean Corpuscular Hemoglobin 29.7 pg (25.0-35.0); Mean Corpuscular Volume 88 fL (80-100); Monocytes # (Auto) 0.5 Thou/mm3 (0.0-0.8); Monocytes % (Auto) 8 % (0-12); Neutrophils # (Auto) 3.9 Thou/mm3 (1.8-7.7); Neutrophils % (Auto) 60 % (37-80); Nucleated Red Blood Cell % 0 /100 WBC (0); Platelet Count 230 Thou/mm3 (140-440); RDW Standard Deviation 53.1 fL (35.1-43.9); Red Blood Count 4.17 Miln/mm3 (4.50-5.90); White Blood Count 6.4 Thou/mm3 (3.8-10.6)
[2025-03-06 07:20] LABS: Alanine Aminotransferase 9 U/L (10-49); Albumin, Serum 4.2 gm/dL (3.4-4.8); Albumin/Globulin Ratio 1.7 (1.2-2.2); Alkaline Phosphatase 54 U/L (46-116); Anion Gap 10 (7-16); Aspartate Amino Transferase 24 U/L (0-34); BUN/Creatinine Ratio 34 Ratio (12-20); Bilirubin,Total 0.4 mg/dL (0.3-1.2); Blood Urea Nitrogen 31 mg/dL (9-23); Calcium 8.9 mg/dL (8.3-10.6); Calcium (Corrected) 8.9 mg/dL (8.5-10.1); Carbon Dioxide 28.2 mMol/L (20.0-31.0); Chloride 104 mMol/L (98-107); Creatinine (Component) 0.9 mg/dL (0.6-1.3); Estimated Creatinine Clearance 81.2 mL/min (>60); Globulin 2.5 gm/dL (2.3-3.5); Glucose 97 mg/dL (74-106); Osmolality,Calculated 289 (275-295); Potassium 3.2 mMol/L (3.4-5.1); Sodium 142 mMol/L (136-145); Total Protein 6.7 gm/dL (5.7-8.2); eGFR > 60 See Note
[2025-03-06 08:00] VITALS: BP 123/77; PULSE 53; PULSE 60; RESP 16; TEMP 36.9; O2SAT 95
[2025-03-06] MEDS: POTASSIUM CHL 10 mEq IVPB 10 MEQ/100 ML BAG 100 MEQ IV ×4 (08:06→11:36)
[2025-03-06] MEDS: Magnesium Sulfate 4 GM Ivpb 4 GM/50 ML BAG IV (08:06)
[2025-03-06 11:03] VITALS: BMI 20.4
--- NOTE | 2025-03-06 11:33 | PD.RESPRO ---
Documentation for date of: 03/06/25 Subjective Subjective Interval history: 03/06/2025: No acute overnight events to report. Patient had endoscopy with gastroenterology which showed a gastric ulcer actively bleeding which was endoclipped. Patient also has Kunz's esophagus when she was not aware of but now is. Patient will continue on sucralfate, octreotide drip and Protonix drip and diet will be advanced as tolerated. Patient has received 1 unit of FFP and 1 unit of platelets during the procedure as gastric ulcer was actively bleeding at that time. Currently the patient is hemodynamically stable and labs show improvement in hemoglobin. Patient denies having any concerning symptoms; moreover, will continue to monitor and expect discharge within the next 24 to 48 hours. Exam Vital Signs Temp Pulse Resp BP Pulse Ox O2 Del Method O2 Flow Rate 98.5 F 60 16 123/77 95 Room Air 6 03/06/25 08:00 03/06/25 08:00 03/06/25 08:00 03/06/25 08:00 03/06/25 08:00 03/06/25 08:00 03/05/25 12:46 Narrative Exam Physical Exam: GENERAL: Awake, answering questions appropriately, appears older than stated age HEENT: Moist mucosa. Eyes open, symmetrical, & clear CARDIO: Heart RRR, no obvious murmurs PULM: No noted coughing/dyspnea CTA B/L, no R/W/R GI: Abdomen soft, nondistended, no pain on palpation. 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 Pedal pulses present B/L NEURO: AAOx3, no focal neuro deficits, able to move all 4 extremities Objective Labs 03/07/25 05:15 03/07/25 05:15 Labs: Laboratory Results - last 24 hr 03/04/25 03/05/25 03/06/25 14:28 14:48 05:30 WBC 6.4 RBC 4.17 L Hgb 11.4 L 12.4 L Hct 32.6 L 36.5 L MCV 88 MCH 29.7 MCHC 34.0 RDW Std Deviation 53.1 H Plt Count 230 Neut % (Auto) 60 Lymph % (Auto) 28 [place] % (Auto) 8 Eos % (Auto) 2 Baso % (Auto) 1 Neut # (Auto) 3.9 Lymph # (Auto) 1.8 [place] # (Auto) 0.5 Eos # (Auto) 0.1 Baso # (Auto) 0.1 Immature Gran # (Auto) 0.06 H Absolute Nucleated RBC 0.00 Immature Gran % 1 H Nucleated RBC % 0 Sodium 142 Potassium 3.2 L Chloride 104 Carbon Dioxide 28.2 Anion Gap 10 BUN 31 H Creatinine 0.9 Estim Creat Clear Calc 81.2 eGFR > 60 BUN/Creatinine Ratio 34 H Glucose 97 Calculated Osmolality 289 Calcium 8.9 Corrected Calcium 8.9 Total Bilirubin 0.4 AST 24 ALT 9 L Alkaline Phosphatase 54 Total Protein 6.7 Albumin 4.2 Globulin 2.5 Albumin/Globulin Ratio 1.7 Blood Type O Positive Antibody Screen NEGATIVE Blood Bank Wristband ID Yes Blood Bank Comment PLATP Ready Quality Measures Quality Measures none Advance care planning discussed with:: patient Assessment & Plan Assessment Current Active Medications: Generic Name Dose Route Start Last Admin Trade Name Freq PRN Reason Stop Dose Admin Acetaminophen 650 mg 03/04/25 21:52 Acetaminophen 325 Mg Tablet PO 04/03/25 21:51 Q6H PRN Fever >101.5 Al Hydrox/Mg Hydrox/Simethicone 30 ml 03/05/25 09:00 03/06/25 05:05 Mg Hyd/Al Hyd/Maximo (Maalox Reg) Susp 30 Ml Udc PO 04/04/25 08:59 30 ml QID MARIA ESTHER Administration Octreotide Acetate 1,000 mcg/ 102 mls @ 5.1 mls/hr 03/05/25 10:30 03/06/25 08:08 Sodium Chloride IV 04/04/25 10:29 Not Given .Q20H MARIA ESTHER Protocol 50 MCG/HR Pantoprazole Sodium 80 mg in 100 mls @ 10 mls/hr 03/05/25 09:52 03/06/25 02:49 Protonix/Ns 80mg Iv Premix IV 03/08/25 07:51 10 mls/hr Q10H MARIA ESTHER Administration Magnesium Sulfate 4 gm in 50 mls @ 12.5 mls/hr 03/06/25 07:46 03/06/25 08:06 Magnesium Sulfate Ivpb IV 03/06/25 11:45 12.5 mls/hr X1 ONE Administration Potassium Chloride 10 meq in 100 mls @ 100 mls/hr 03/06/25 07:47 03/06/25 10:24 Kcl Ivpb IV 03/06/25 11:46 100 mls/hr Q1H MARIA ESTHER Administration Ondansetron HCl 4 mg 03/04/25 21:52 Ondansetron Inj 2 Mg/Ml Inj 2 Ml IVP 04/03/25 21:51 Q6H PRN NAUSEA OR VOMITING Protocol Pantoprazole Sodium 40 mg 03/05/25 09:00 03/05/25 09:54 Pantoprazole Inj 40 Mg Vial IVP 04/04/25 08:59 Not Given QDAY MARIA ESTHER Sucralfate 1 gm 03/05/25 09:00 03/06/25 05:05 Sucralfate Susp 1 Gm/10 Ml Udc PO 04/04/25 08:59 1 gm QID MARIA ESTHER Administration Plan 65-year-old male with significant past medical history of hypertension, hiatal hernia s/p repair, GERD, chronic smoker presented to the hospital with chief complaints of vomiting of blood since 3 days #Bleeding gastric ulcer #NSAID induced peptic ulcer disease #Gastritis #Kunz's esophagus Presented to the hospital with chief complaints of hematemesis Denies blackish discoloration or bloody bowel movements, abdominal pain Denies similar history in the past Vitals are stable at the time of admission. Physical examination remains unremarkable Labs at admission showed hemoglobin 15, platelets 216, INR 1.6 CT abdomen/pelvis showed antral gastritis, colonic diverticulosis Rockall score is 1 In the ED, patient is given 80 Mg of IV pantoprazole and 1 L of LR bolus, started on octreotide drip EGD showed blood throughout the esophagus and stomach found with an ulcer with blood clots and was clipped Plan: GI consulted, appreciate recommendations Advancing diet as tolerated Protonix drip Octreotide drip Follow-up with PCP regarding the patient's Kunz's esophagus, reevaluation with surveillance endoscopy #Acute kidney injury, improving #Moderate prostatomegaly BUN 42, creatinine 1.4, baseline seems to be around 1 from 2022 Patient does have an enlarged prostate found on CT states sometimes has difficulty initiating urination however here he is urinating and has no urinary symptoms Creatinine has downtrended to 0.9, back to baseline Renal ultrasound showed Bilateral renal cortical thinning, mild bilateral renal parenchymal scar formation but no renal calculi or hydronephrosis Plan: Avoid nephrotoxins Renally dose medications #Hypertension At home patient uses benazepril 40 mg daily, hydrochlorothiazide, metoprolol succinate Plan: Pending med rec Will resume antihypertensives as tolerated #Metabolic associated steatotic liver disease Liver ultrasound showed fatty liver Plan: Follow-up with PCP, diet and exercise regimen Hospital Maintenance: Dispo: Tele DVT ppx: SCD GI ppx: Panoprazole drip Diet: Clear liquid, advancing as tolerated Lines: PIV Code status: Full Patient seen and assessed with attending Dr. Sharyn Arthur, PGY-1 Attending Provider Attestation/Addendum Marcia Mcmullen DO, attest that I was physically present for the borrego portions of the service and evaluated the patient with the resident and I reviewed and discussed the case with the resident and agree with the resident's findings and plans of care as documented above Patient seen and eval this a.m. He states that he is doing well and would like to eat. He denies any abdominal pain, nausea, vomiting, fevers, chills, diarrhea or melena. Okay to start clear liquid diet per GI. Will continue with current management and follow-up with H&H.
[2025-03-06] MEDS: OCTREOTIDE ACET INJ 1,000 MCG in SODIUM CHLORIDE 0.9% 100 ML 5.1 MCG IV (11:37)
[2025-03-06 12:00] VITALS: BP 148/87; PULSE 51; PULSE 63; RESP 17; TEMP 36.9; O2SAT 98
--- NOTE | 2025-03-06 14:38 | PC.SS ---
Rounding note: pt moving to advnace diet; possible another day SS attempted initia; pt sleeping
--- NOTE | 2025-03-06 15:16 | ESPR_ITS ---
Documentation for date of: 03/06/25 Subjective Subjective Interval history: No further bleeding Hemoglobin 12.4 and hematocrit 36.5 Exam Vital Signs Temp Pulse Resp BP Pulse Ox O2 Del Method O2 Flow Rate 98.4 F 63 17 148/87 H 98 Room Air 6 03/06/25 12:00 03/06/25 12:00 03/06/25 12:00 03/06/25 12:00 03/06/25 12:00 03/06/25 12:00 03/05/25 12:46 Objective Labs 03/06/25 05:30 03/06/25 05:30 Labs: Laboratory Results - last 24 hr 03/05/25 03/06/25 14:48 05:30 WBC 6.4 RBC 4.17 L Hgb 11.4 L 12.4 L Hct 32.6 L 36.5 L MCV 88 MCH 29.7 MCHC 34.0 RDW Std Deviation 53.1 H Plt Count 230 Neut % (Auto) 60 Lymph % (Auto) 28 [place] % (Auto) 8 Eos % (Auto) 2 Baso % (Auto) 1 Neut # (Auto) 3.9 Lymph # (Auto) 1.8 [place] # (Auto) 0.5 Eos # (Auto) 0.1 Baso # (Auto) 0.1 Immature Gran # (Auto) 0.06 H Absolute Nucleated RBC 0.00 Immature Gran % 1 H Nucleated RBC % 0 Sodium 142 Potassium 3.2 L Chloride 104 Carbon Dioxide 28.2 Anion Gap 10 BUN 31 H Creatinine 0.9 Estim Creat Clear Calc 81.2 eGFR > 60 BUN/Creatinine Ratio 34 H Glucose 97 Calculated Osmolality 289 Calcium 8.9 Corrected Calcium 8.9 Total Bilirubin 0.4 AST 24 ALT 9 L Alkaline Phosphatase 54 Total Protein 6.7 Albumin 4.2 Globulin 2.5 Albumin/Globulin Ratio 1.7 Impressions Impression: Large gastric ulcer with a visible blood vessel and blood clot requiring endoscopic intervention doing well Advance to clear liquid diet And then advance diet as tolerated while at the same time watching the CBC Assessment & Plan A&P Narrative # Hematemesis Plan Serial CBCs IV Protonix N.p.o. midnight tonight except p.o. meds Consent obtained for fiberoptic esophagogastroduodenoscopy with possible biopsy possible therapeutic intervention under intravenous moderate sedation Other medical problems include Essential hypertension Thank you very much for the opportunity to participate in the care of this patient Time Spent With Patient Time: Total time spent is greater than 50% in coordination of care (as documented) at patient's floor/unit and/or counseling patient:
[2025-03-06 16:00] VITALS: BP 136/68; PULSE 51; PULSE 62; RESP 16; TEMP 37; O2SAT 94
[2025-03-06 20:00] VITALS: BP 125/80; PULSE 51; RESP 18; TEMP 36.6; O2SAT 97
[2025-03-07] VITALS: BP 130/69; PULSE 46; PULSE 50; RESP 14; TEMP 36.7; O2SAT 97
[2025-03-07 04:00] VITALS: BP 123/75; PULSE 47; PULSE 53; RESP 17; TEMP 36.1; O2SAT 95
[2025-03-07] MEDS: SUCRALFATE SUSP 1 GM/10 ML UDC PO ×4 (05:08→20:38)
[2025-03-07] MEDS: MG HYD/AL HYD/SIME (Maalox Reg) SUSP 30 ML UDC PO ×4 (05:08→20:38)
[2025-03-07 05:46] LABS: Basophils # (Auto) 0.1 Thou/mm3 (0.0-0.2); Basophils % (Auto) 1 % (0-2.5); Eosinophils # (Auto) 0.2 Thou/mm3 (0.0-0.5); Eosinophils % (Auto) 4 % (0-10); Hematocrit 32.2 % (41.0-53.0); Immature Granulocytes % (Auto) 1 % (0-0); Immature Granulocytes Auto 0.03 Thou/mm3 (0.00-0.00); Lymphocytes # (Auto) 1.7 Thou/mm3 (1.0-4.8); Lymphocytes % (Auto) 29 % (10-50); Mean Corpuscular HGB Conc 34.2 g/dl (31.0-37.0); Mean Corpuscular Hemoglobin 30.3 pg (25.0-35.0); Mean Corpuscular Volume 89 fL (80-100); Monocytes # (Auto) 0.4 Thou/mm3 (0.0-0.8); Monocytes % (Auto) 8 % (0-12); Neutrophils # (Auto) 3.3 Thou/mm3 (1.8-7.7); Neutrophils % (Auto) 58 % (37-80); Nucleated Red Blood Cell % 0 /100 WBC (0); Platelet Count 183 Thou/mm3 (140-440); RDW Standard Deviation 51.8 fL (35.1-43.9); Red Blood Count 3.63 Miln/mm3 (4.50-5.90); White Blood Count 5.7 Thou/mm3 (3.8-10.6)
[2025-03-07 06:18] LABS: Alanine Aminotransferase 8 U/L (10-49); Albumin, Serum 3.7 gm/dL (3.4-4.8); Albumin/Globulin Ratio 1.5 (1.2-2.2); Alkaline Phosphatase 49 U/L (46-116); Anion Gap 9 (7-16); Aspartate Amino Transferase 19 U/L (0-34); BUN/Creatinine Ratio 24 Ratio (12-20); Bilirubin,Total 0.5 mg/dL (0.3-1.2); Blood Urea Nitrogen 19 mg/dL (9-23); Calcium 8.9 mg/dL (8.3-10.6); Calcium (Corrected) 9.1 mg/dL (8.5-10.1); Carbon Dioxide 27.5 mMol/L (20.0-31.0); Chloride 99 mMol/L (98-107); Creatinine (Component) 0.8 mg/dL (0.6-1.3); Globulin 2.5 gm/dL (2.3-3.5); Glucose 110 mg/dL (74-106); Osmolality,Calculated 273 (275-295); Potassium 3.5 mMol/L (3.4-5.1); Sodium 135 mMol/L (136-145); Total Protein 6.2 gm/dL (5.7-8.2); eGFR > 60 See Note
[2025-03-07 08:00] VITALS: BP 145/83; PULSE 56; PULSE 60; RESP 20; TEMP 36.7; O2SAT 98
[2025-03-07] MEDS: OCTREOTIDE ACET INJ 1,000 MCG in SODIUM CHLORIDE 0.9% 100 ML 5.1 MCG IV (09:24)
[2025-03-07] MEDS: PANTOPRAZOLE/NS 80MG IV PREMIX 80 MG/100 ML BAG 10 MG IV ×2 (09:25→19:10)
--- NOTE | 2025-03-07 10:17 | PC.SS ---
Patient is alert/oriented. Patient was able to verify demographics. Patient lives with bilingual case manager. He's independent with ADL's. Patient was admitted for upper gi bleed. 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 He drives himself to appointments. Patient does not posess any DME. His pharmacy: [facility]. PCP: Shagufta Kelley NP @ [facility]. Last appt. was in August. D/c plan: return home. Alt medical decision maker: bilingual case manager, Magali, alt medical decision maker: Magali, kierra, d/c plan: home transportation: uber/family
[2025-03-07 10:23] LABS: Free T4 (Free Thyroxine) 0.56 ng/dL (0.89-1.76)
--- NOTE | 2025-03-07 11:17 | PD.RESPRO ---
Documentation for date of: 03/07/25 Subjective Subjective Interval history: No acute overnight events reported, Pt is seen and examined at bedside this morning. Pt denies any chest or epigastric pain. Denies SOB or dizziness. Per GI recommendations advanced diet to PUD diet for lunch, will continue to monitor if Pt is able to tolerate. Will continue octreotide and protonix drip and monitor hemoglobin tomorrow am labs and GI cleared for DC tomorrow am. Vitals are stable, Hgb 11.0, Hct 32.2. Will continue to monitor CBC. TSH 0.18 and FT4 0.56, likely subclinical hypothyroidism, pt is advised to repeat labs outpatient in 3 months. No other complaints. Exam Vital Signs Temp Pulse Resp BP Pulse Ox O2 Del Method O2 Flow Rate 98.0 F 60 20 145/83 H 98 Room Air 6 03/07/25 08:00 03/07/25 08:00 03/07/25 08:00 03/07/25 08:00 03/07/25 08:00 03/07/25 08:00 03/05/25 12:46 Narrative Exam GENERAL: A&Ox3 . Awake, elderly appearing male, holds conversation, Not in acute distress NEURO: no focal neurological deficits HEENT: Atraumatic, Normocephalic. mucous membranes moist. Eyes open, symmetrical, & clear HEART: Normal Heart Sounds LUNGS: Clear to auscultation with no wheezing or crackles. ABDOMEN: soft, non-distended, non-tender, bowel sounds heard, no guarding or rebound tenderness SKIN: No Rash or ecchymoses EXTREMITIES: No edema, tenderness, able to move all 4 extremities, pedal pulses palpated Objective Labs 03/08/25 05:35 03/08/25 05:35 Labs: Laboratory Results - last 24 hr 03/07/25 05:15 WBC 5.7 RBC 3.63 L Hgb 11.0 L Hct 32.2 L MCV 89 MCH 30.3 MCHC 34.2 RDW Std Deviation 51.8 H Plt Count 183 D Neut % (Auto) 58 Lymph % (Auto) 29 [place] % (Auto) 8 Eos % (Auto) 4 Baso % (Auto) 1 Neut # (Auto) 3.3 Lymph # (Auto) 1.7 [place] # (Auto) 0.4 Eos # (Auto) 0.2 Baso # (Auto) 0.1 Immature Gran # (Auto) 0.03 H Absolute Nucleated RBC 0.00 Immature Gran % 1 H Nucleated RBC % 0 Sodium 135 L Potassium 3.5 Chloride 99 Carbon Dioxide 27.5 Anion Gap 9 BUN 19 Creatinine 0.8 Estim Creat Clear Calc 92.0 eGFR > 60 BUN/Creatinine Ratio 24 H Glucose 110 H Calculated Osmolality 273 L Calcium 8.9 Corrected Calcium 9.1 Total Bilirubin 0.5 AST 19 ALT 8 L Alkaline Phosphatase 49 Total Protein 6.2 Albumin 3.7 D Globulin 2.5 Albumin/Globulin Ratio 1.5 Free T4 0.56 L Quality Measures Quality Measures none Advance care planning discussed with:: patient Assessment & Plan Assessment Current Active Medications: Generic Name Dose Route Start Last Admin Trade Name Freq PRN Reason Stop Dose Admin Acetaminophen 650 mg 03/07/25 09:25 Acetaminophen 325 Mg Tablet PO 04/03/25 21:51 Q6H PRN Fever >101.5 Al Hydrox/Mg Hydrox/Simethicone 30 ml 03/05/25 09:00 03/07/25 05:08 Mg Hyd/Al Hyd/Maximo (Maalox Reg) Susp 30 Ml Udc PO 04/04/25 08:59 30 ml QID MARIA ESTHER Administration Octreotide Acetate 1,000 mcg/ 102 mls @ 5.1 mls/hr 03/05/25 10:30 03/07/25 09:24 Sodium Chloride IV 04/04/25 10:29 50 mcg/hr .Q20H MARIA ESTHER 5.1 mls/hr Administration Protocol 50 MCG/HR Pantoprazole Sodium 80 mg in 100 mls @ 10 mls/hr 03/05/25 09:52 03/07/25 09:25 Protonix/Ns 80mg Iv Premix IV 03/08/25 07:51 10 mls/hr Q10H MARIA ESTHER Administration Ondansetron HCl 4 mg 03/04/25 21:52 Ondansetron Inj 2 Mg/Ml Inj 2 Ml IVP 04/03/25 21:51 Q6H PRN NAUSEA OR VOMITING Protocol Pantoprazole Sodium 40 mg 03/05/25 09:00 03/05/25 09:54 Pantoprazole Inj 40 Mg Vial IVP 04/04/25 08:59 Not Given QDAY MARIA ESTHER Sucralfate 1 gm 03/05/25 09:00 03/07/25 05:08 Sucralfate Susp 1 Gm/10 Ml Udc PO 04/04/25 08:59 1 gm QID MARIA ESTHER Administration Plan 65-year-old male with significant past medical history of hypertension, hiatal hernia s/p repair, GERD, chronic smoker presented to the hospital with chief complaints of vomiting of blood since 3 days #Bleeding gastric ulcer #NSAID induced peptic ulcer disease #Gastritis #Kunz's esophagus Presented to the hospital with chief complaints of hematemesis Denies blackish discoloration or bloody bowel movements, abdominal pain Denies similar history in the past Vitals are stable at the time of admission. Physical examination remains unremarkable Labs at admission showed hemoglobin 15, platelets 216, INR 1.6 CT abdomen/pelvis showed antral gastritis, colonic diverticulosis Rockall score is 1 In the ED, patient is given 80 Mg of IV pantoprazole and 1 L of LR bolus, started on octreotide drip EGD showed blood throughout the esophagus and stomach found with an ulcer with blood clots and was clipped Plan: GI consulted, appreciate recommendations Advanced to PUD diet Continue Protonix drip Continue Octreotide drip Follow-up with PCP regarding the patient's Kunz's esophagus, reevaluation with surveillance endoscopy #Acute kidney injury, Resolved #Moderate prostatomegaly On admission BUN 42, creatinine 1.4, baseline seems to be around 1 from 2022 Patient does have an enlarged prostate found on CT states sometimes has difficulty initiating urination however here he is urinating and has no urinary symptoms Creatinine has downtrended to 0.8, back to baseline Renal ultrasound showed Bilateral renal cortical thinning, mild bilateral renal parenchymal scar formation but no renal calculi or hydronephrosis Plan: Avoid nephrotoxins Renally dose medications Continue to monitor daily CMP #Primary Hypertension At home patient uses benazepril 40 mg daily, hydrochlorothiazide, metoprolol succinate Plan: Pending med rec Will resume antihypertensives as tolerated,Pt's blood pressure during hospitalization is stable #Subclinical Hypothyroidism -TSH 0.18 and FT4 0.56 -Pt is informed to follow up outpatient and repeat labs in 3 months #Metabolic associated steatotic liver disease Liver ultrasound showed fatty liver Plan: Follow-up with PCP, diet and exercise regimen Hospital Maintenance: Dispo: Tele DVT ppx: SCD GI ppx: Panoprazole drip Diet: PUD diet Lines: PIV Code status: Full Assessment and plan discussed with attending physician Dr. Sharyn Herrera (PGY-1)- Internal medicine resident Attending Provider Attestation/Addendum I, Marcia Coles, DO, attest that I was physically present for the borrego portions of the service and evaluated the patient with the resident and I reviewed and discussed the case with the resident and agree with the resident's findings and plans of care as documented above Patient seen and evaluated a.m. He states that he is feeling well. Patient has been tolerating clear liquid diet. Will advance to peptic ulcer diet. However, patient became nauseous and was unable to tolerate PUD diet. Will switch to full liquids. Continue to follow H&H. If hemoglobin remains stable, patient can likely be discharged in the next 24 hours.
[2025-03-07 12:00] VITALS: BP 166/97; PULSE 71; PULSE 75; RESP 19; TEMP 37; O2SAT 98
[2025-03-07] MEDS: ACETAMINOPHEN 325 MG TABLET 650 MG PO ×2 (12:19→19:44)
[2025-03-07] MEDS: ONDANSETRON INJ 2 MG/ML INJ 2 ML 4 MG IVP ×2 (12:20→19:10)
[2025-03-07 16:00] VITALS: BP 115/74; PULSE 53; PULSE 59; RESP 18; TEMP 36.9; O2SAT 96
--- NOTE | 2025-03-07 18:55 | PD.IMPROG ---
Documentation for date of: 03/07/25 Subjective Subjective Interval history: Hemoglobin 11.0 and hematocrit 32.2 No active bleeding or passive bleeding Advance diet Exam Vital Signs Temp Pulse Resp BP Pulse Ox O2 Del Method O2 Flow Rate 98.5 F 59 L 18 115/74 96 Room Air 6 03/07/25 16:00 03/07/25 16:00 03/07/25 16:00 03/07/25 16:00 03/07/25 16:00 03/07/25 16:00 03/05/25 12:46 Objective Labs 03/07/25 05:15 03/07/25 05:15 Labs: Laboratory Results - last 24 hr 03/07/25 05:15 WBC 5.7 RBC 3.63 L Hgb 11.0 L Hct 32.2 L MCV 89 MCH 30.3 MCHC 34.2 RDW Std Deviation 51.8 H Plt Count 183 D Neut % (Auto) 58 Lymph % (Auto) 29 [place] % (Auto) 8 Eos % (Auto) 4 Baso % (Auto) 1 Neut # (Auto) 3.3 Lymph # (Auto) 1.7 [place] # (Auto) 0.4 Eos # (Auto) 0.2 Baso # (Auto) 0.1 Immature Gran # (Auto) 0.03 H Absolute Nucleated RBC 0.00 Immature Gran % 1 H Nucleated RBC % 0 Sodium 135 L Potassium 3.5 Chloride 99 Carbon Dioxide 27.5 Anion Gap 9 BUN 19 Creatinine 0.8 Estim Creat Clear Calc 92.0 eGFR > 60 BUN/Creatinine Ratio 24 H Glucose 110 H Calculated Osmolality 273 L Calcium 8.9 Corrected Calcium 9.1 Total Bilirubin 0.5 AST 19 ALT 8 L Alkaline Phosphatase 49 Total Protein 6.2 Albumin 3.7 D Globulin 2.5 Albumin/Globulin Ratio 1.5 Free T4 0.56 L Impressions Impression: Large gastric ulcer requiring endoscopic intervention with visible blood vessel Continue current treatment plan Assessment & Plan A&P Narrative # Hematemesis Plan Serial CBCs IV Protonix N.p.o. midnight tonight except p.o. meds Consent obtained for fiberoptic esophagogastroduodenoscopy with possible biopsy possible therapeutic intervention under intravenous moderate sedation Other medical problems include Essential hypertension Thank you very much for the opportunity to participate in the care of this patient Time Spent With Patient Time: Total time spent is greater than 50% in coordination of care (as documented) at patient's floor/unit and/or counseling patient:
[2025-03-07 20:00] VITALS: BP 127/87; PULSE 56; PULSE 65; RESP 16; TEMP 36.7; O2SAT 97
[2025-03-08] VITALS: BP 141/86; PULSE 58; RESP 18; TEMP 36.9; O2SAT 97
[2025-03-08 04:00] VITALS: BP 117/76; PULSE 55; PULSE 64; RESP 18; TEMP 36.3; O2SAT 98
[2025-03-08] MEDS: MG HYD/AL HYD/SIME (Maalox Reg) SUSP 30 ML UDC PO ×2 (05:32→11:41)
[2025-03-08] MEDS: SUCRALFATE SUSP 1 GM/10 ML UDC PO ×2 (05:32→11:41)
[2025-03-08] MEDS: OCTREOTIDE ACET INJ 1,000 MCG in SODIUM CHLORIDE 0.9% 100 ML 5.1 MCG IV (05:48)
[2025-03-08 06:00] VITALS: BMI 21.2
[2025-03-08 06:13] LABS: Basophils % (Auto) 1 % (0-2.5); Eosinophils # (Auto) 0.1 Thou/mm3 (0.0-0.5); Eosinophils % (Auto) 2 % (0-10); Hematocrit 34.4 % (41.0-53.0); Hemoglobin 11.8 g/dL (13.5-16.0); Immature Granulocytes % (Auto) 1 % (0-0); Immature Granulocytes Auto 0.03 Thou/mm3 (0.00-0.00); Lymphocytes # (Auto) 1.3 Thou/mm3 (1.0-4.8); Lymphocytes % (Auto) 24 % (10-50); Mean Corpuscular HGB Conc 34.3 g/dl (31.0-37.0); Mean Corpuscular Hemoglobin 30.3 pg (25.0-35.0); Mean Corpuscular Volume 88 fL (80-100); Monocytes # (Auto) 0.5 Thou/mm3 (0.0-0.8); Monocytes % (Auto) 9 % (0-12); Neutrophils # (Auto) 3.5 Thou/mm3 (1.8-7.7); Neutrophils % (Auto) 64 % (37-80); Nucleated Red Blood Cell % 0 /100 WBC (0); Platelet Count 188 Thou/mm3 (140-440); RDW Standard Deviation 50.4 fL (35.1-43.9); White Blood Count 5.5 Thou/mm3 (3.8-10.6)
[2025-03-08 06:50] LABS: Alanine Aminotransferase 9 U/L (10-49); Albumin, Serum 3.7 gm/dL (3.4-4.8); Albumin/Globulin Ratio 1.5 (1.2-2.2); Alkaline Phosphatase 52 U/L (46-116); Anion Gap 8 (7-16); Aspartate Amino Transferase 21 U/L (0-34); BUN/Creatinine Ratio 14 Ratio (12-20); Bilirubin,Total 0.5 mg/dL (0.3-1.2); Blood Urea Nitrogen 11 mg/dL (9-23); Calcium 8.2 mg/dL (8.3-10.6); Calcium (Corrected) 8.4 mg/dL (8.5-10.1); Carbon Dioxide 28.6 mMol/L (20.0-31.0); Chloride 101 mMol/L (98-107); Creatinine (Component) 0.8 mg/dL (0.6-1.3); Estimated Creatinine Clearance 95.1 mL/min (>60); Globulin 2.4 gm/dL (2.3-3.5); Glucose 143 mg/dL (74-106); Osmolality,Calculated 277 (275-295); Potassium 3.7 mMol/L (3.4-5.1); Sodium 138 mMol/L (136-145); Total Protein 6.1 gm/dL (5.7-8.2); eGFR > 60 See Note
[2025-03-08 08:00] VITALS: BP 102/74; PULSE 55; PULSE 64; RESP 17; TEMP 37; O2SAT 92
[2025-03-08] MEDS: ACETAMINOPHEN 325 MG TABLET 650 MG PO (11:40)
--- NOTE | 2025-03-08 11:52 | ESDS_ITS ---
<Statement entered by Marcia Coles DO - 03/09/25 07:33> I, Marcia Coles DO, attest that I was physically present for the borrego portions of the service and evaluated the patient with the resident and I reviewed and discussed the case with the resident and agree with the resident's findings and plans of care as documented above <Statement entered by John Mckeon MD - 03/08/25 15:51> Patient was examined with the team including attending physician. Note reviewed, I agree with the discharge plan as documented. - John Mckeon MD PGY2 Disclaimer: The document may contain phonetic/typographic errors due to voice recognition software. Planned Discharge Date 03/08/25 DS: Providers Provider Date of admission: 03/04/25 21:52 Primary care physician: Shagufta Kelley NP Admitting Provider: Tomas Barron MD Attending Provider on Admission: Marcia Coles DO Consults: 03/04/25 18:30 Consult to Gastroenterology Stat Comment: Upper GI bleed Consulting Provider: Allison Tate Attending Provider on DC: Marcia Coles DO Discharging Provider: Elio Velasquez MD Anticipated date of discharge: 03/08/25 DS: Diagnosis Problem List Completed Was Problem List Reviewed/Reconciled?: Yes Hospital Course Hospital Course Hospital course: 65-year-old male with past medical history of hypertension, hiatal hernia status post repair, GERD chronic smoking who presented to the ED due to hematemesis. Patient was admitted for upper GI bleed. During hospital stay patient was evaluated with endoscopy by GI specialist patient was found with bleeding gastric ulcer likely NSAID induced peptic ulcer disease due to the patient's chronic use of these NSAID medications. Patient was managed with octreotide, Protonix drip and peptic ulcer diet. At this time patient is medically stable for discharge. Follow-up with primary care physician within 1 week of discharge. Follow-up with your electronic transaction implementer within 2 weeks of discharge. You have been prescribed pantoprazole as an antiacid. During medication reconciliation you stated that you are not taking aspirin, benefits of PERRL, hydrochlorothiazide, please stop taking these medications and talk to your primary care physician in regards to resuming these meds as blood pressure during hospitalization has been stable and were not restarted here. Should any symptoms recur or worsen patient is instructed to return to the ED. Problem List: #Bleeding gastric ulcer #NSAID induced peptic ulcer disease #Gastritis #Kunz's esophagus #Acute kidney injury, Resolved #Moderate prostatomegaly #Primary Hypertension #Subclinical Hypothyroidism #Metabolic associated steatotic liver disease Case discussed with my senior Dr. Mckeon and my attending Dr. Sharyn Velasquez MD PGY-1 Status at Discharge Functional status at discharge: independent ambulation Overall status at discharge: patient is back to baseline Time Spent with Patient Time attestation: Total time spent providing and/or coordinating discharge services: Time spent: Greater than 30 minutes Exam Vital Signs Temp Pulse Resp BP Pulse Ox O2 Del Method O2 Flow Rate 98.6 F 55 L 17 102/74 92 L Room Air 6 03/08/25 08:00 03/08/25 08:00 03/08/25 08:00 03/08/25 08:00 03/08/25 08:00 03/08/25 08:00 03/05/25 12:46 Narrative Exam Physical Exam GENERAL: NAD, AAOx3 HEENT: Moist mucosa. Eyes open, symmetrical, & clear CARDIO: Heart RRR, no obvious murmurs PULM: No noted coughing/dyspnea CTA B/L, no R/W/R GI: Abdomen soft, nondistended, no pain on palpation. BSx4 SKIN/MSK/EXT: No wounds/rashes/edema/amputations, no pain on palpation. Pedal pulses present B/L NEURO: AAOx3, no focal neuro deficits, able to move all 4 extremities Discharge Plan Plan Patient Disposition: HOME (Self Care) Care Plan Goals: Follow up with primary care physician within 1 week of discharge FOllow up with Gastroenterology within 2 weeks of discharge You have been prescribed pantoprazole as an anti acid During medication reconcialation you stated you are not taking aspirin, benazepril, HCTZ, please stop taking these meds and talk to your pcp in regards to resuming these meds as blood pressure during hospitalization has been stable. Should any symptoms recur or worsen patient is instructed to return to the ED. Prescriptions/Referrals Prescriptions/Med Rec: New pantoprazole 40 mg tablet,delayed release (DR/EC) 40 mg PO QDAY Qty: 30 0RF Continued metoprolol succinate 25 mg Tablet Extended Release 24 Hr 25 mg PO BID ondansetron 4 mg tablet,disintegrating 4 mg PO Q8H PRN (Reason: nausea and vomiting) Qty: 10 0RF Discontinued aspirin 81 mg Tablet,Delayed Release (Dr/Ec) 81 mg PO QDAY hydrochlorothiazide 12.5 mg Capsule 12.5 mg PO QDAY omeprazole 20 mg Capsule,Delayed Release(Dr/Ec) 20 mg PO QDAY benazepril 40 mg Tablet 40 mg PO QDAY Referrals: Shagufta Kelley AUTOMOBILE ASSEMBLY SUPERVISOR [Primary Care Provider] - Patient/Caregiver Discharge Instructions Education Materials: Bleeding Gastrointestinal, Anatomy of the Digestive System Print Language: Citizen Of [place] Stand Alone Forms: [employer] [facility] Info., Patient Portal Info Letter Discharge Order Discharge Orders: Discharge (Routine); Ordered 03/08/25 Ordered By: Elio Velasquez Quality Discharge Quality Measures VTE prophylaxis
[2025-03-08 12:00] VITALS: BP 134/90; PULSE 55; PULSE 64; RESP 20; TEMP 36.8; O2SAT 94
--- NOTE | 2025-03-08 13:03 | PD.IMPROG ---
Documentation for date of: 03/08/25 Subjective Subjective Interval history: Hemoglobin hematocrit stable Okay to discharge patient home to be followed as an outpatient For a repeat endoscopy in 8 to 12 weeks Exam Vital Signs Temp Pulse Resp BP Pulse Ox O2 Del Method O2 Flow Rate 98.3 F 55 L 20 134/90 H 94 L Room Air 6 03/08/25 12:00 03/08/25 12:00 03/08/25 12:00 03/08/25 12:00 03/08/25 12:00 03/08/25 12:00 03/05/25 12:46 Objective Labs 03/08/25 05:35 03/08/25 05:35 Labs: Laboratory Results - last 24 hr 03/08/25 05:35 WBC 5.5 RBC 3.90 L Hgb 11.8 L Hct 34.4 L MCV 88 MCH 30.3 MCHC 34.3 RDW Std Deviation 50.4 H Plt Count 188 Neut % (Auto) 64 Lymph % (Auto) 24 Stark % (Auto) 9 Eos % (Auto) 2 Baso % (Auto) 1 Neut # (Auto) 3.5 Lymph # (Auto) 1.3 Stark # (Auto) 0.5 Eos # (Auto) 0.1 Baso # (Auto) 0.0 Immature Gran # (Auto) 0.03 H Absolute Nucleated RBC 0.00 Immature Gran % 1 H Nucleated RBC % 0 Sodium 138 Potassium 3.7 Chloride 101 Carbon Dioxide 28.6 Anion Gap 8 BUN 11 Creatinine 0.8 Estim Creat Clear Calc 95.1 eGFR > 60 BUN/Creatinine Ratio 14 Glucose 143 H Calculated Osmolality 277 Calcium 8.2 L Corrected Calcium 8.4 L Total Bilirubin 0.5 AST 21 ALT 9 L Alkaline Phosphatase 52 Total Protein 6.1 Albumin 3.7 Globulin 2.4 Albumin/Globulin Ratio 1.5 Impressions Impression: Gastric ulcer with a visible blood vessel requiring endoscopic intervention plan outpatient follow-up in 8 to 12 weeks Assessment & Plan A&P Narrative # Hematemesis Plan Serial CBCs IV Protonix N.p.o. midnight tonight except p.o. meds Consent obtained for fiberoptic esophagogastroduodenoscopy with possible biopsy possible therapeutic intervention under intravenous moderate sedation Other medical problems include Essential hypertension Thank you very much for the opportunity to participate in the care of this patient Time Spent With Patient Time: Total time spent is greater than 50% in coordination of care (as documented) at patient's floor/unit and/or counseling patient:
[2025-03-08 14:10] VITALS: BP 130/93; PULSE 65; RESP 18; TEMP 36.8; O2SAT 98
== END 2025-03-08 14:18 | disposition home or self-care (01) | DRG 378 ==
LOC: SERX 15:27 → SERHOLD 22:06 → S2NX 23:00
PROVIDERS: Nurse Practitioner Family; Specialist; Student in an Organized Health Care Education/Training Program; Admitting Provider Student in an Organized Health Care Education/Training Program; Emergency Provider Family Medicine; PCP Nurse Practitioner Family; Visit Provider Internal Medicine
PROC: 0D568ZZ Destruction of Stomach, Via Natural or Artificial Opening Endoscopic (ICD-10-PCS; CPT 43239; principal; 2025-03-05 08:45)
DX: K25.4 Chronic or unspecified gastric ulcer with hemorrhage (principal); N17.9 Acute kidney failure, unspecified; T39.395A Adverse effect of other nonsteroidal anti-inflammatory drugs [NSAID], initial encounter; K92.0 Hematemesis; I10 Essential (primary) hypertension; M25.512 Pain in left shoulder; F17.210 Nicotine dependence, cigarettes, uncomplicated; K21.9 Gastro-esophageal reflux disease without esophagitis; K29.70 Gastritis, unspecified, without bleeding; K22.70 Barrett's esophagus without dysplasia; K45.8 Other specified abdominal hernia without obstruction or gangrene; N40.1 Benign prostatic hyperplasia with lower urinary tract symptoms; K76.0 Fatty (change of) liver, not elsewhere classified; E03.8 Other specified hypothyroidism; Z79.82 Long term (current) use of aspirin
CPT/HCPCS: 36415; 74177; 76705; 76770; 80053; 80061; 81001; 83036; 83540; 83550; 83735; 84100; 84439; 84443; 84484; 85014; 85018; 85025; 85610; 85730; 86850; 86900; 86901; 86927; 86965; 93005; 93970; 96361; 96365; 96375; 99285; A4217; A4649; J0171; J0696; J1200; J2250; J2354; J2405; J2470; J2765; J3010; J3475; J3480; J3490; J7050; J7120; P9035; P9060; Q9967; A9270

== ENCOUNTER 2025-03-20 13:38 | Emergency (ER) | payer MEDICARE, MEDICAID, SELFPAY ==
[2025-03-20 13:42] VITALS: PULSE 72; RESP 18; O2SAT 99; BMI 19.2
[2025-03-20 14:00] VITALS: BP 176/94; PULSE 61; RESP 18; TEMP 36.6; O2SAT 97
--- NOTE | 2025-03-20 14:04 | XR_ITS ---
Examination: Cervical spine 3 views TECHNIQUE: AP lateral coned AP odontoid cervical spine 3 views Exam date and time: June 20, 2025 1419 hours INDICATIONS: Cervical spine negative pain one week FINDINGS: Adequate alignment cervical vertebral bodies Moderate degenerative disc disease C5-C6, C6-C7 Intact odontoid Incidental note heavy carotid vascular calcification IMPRESSION: Moderate degenerative disc disease C5-C6, C6-C7 Incidental note heavy carotid vascular calcification, consider correlation with carotid Doppler sonography follow-up
--- NOTE | 2025-03-20 14:04 | XR_ITS ---
Examination: Thoracic spine 3 views Technique one AP lateral coned lateral upper dorsal spine 3 views Date and time: March 20, 2025 1426 hours INDICATIONS: Upper back pain beginning one week ago. FINDINGS: Upper thoracic dextroscoliosis 12 degrees Severe osteopenia Kyphosis dorsal spine secondary to chronic wedging of lower dorsal vertebral bodies Prominent thoracic spondylosis No acute fracture Mild to moderate diffuse thoracic degenerative disc disease IMPRESSION: Mild to moderate diffuse thoracic degenerative disc disease
--- NOTE | 2025-03-20 14:04 | EDNOTE_ITS ---
ED Back Injury Pain RME/HPI General Chief Complaint: Back Pain/Injury Stated Complaint: BACK PAIN Time Seen by Provider: 03/20/25 13:46 Source: patient Arrival date/time: 03/20/25 13:38 65-year-old male with a history of hypertension presents to the emergency room with a chief complaint of neck pain and upper back pain x 2 weeks Mode of arrival: ambulatory Limitations: no limitations Related Data Home Medications ?Medication ?Instructions ?Recorded ?Confirmed metoprolol succinate 25 mg 25 mg PO BID 11/23/1803/07 tablet,extended release 24 hr Previous Rx's ?Medication ?Instructions ?Recorded ondansetron 4 mg disintegrating 4 mg PO Q8H PRN nausea and 09/30/23 tablet vomiting #10 tabs pantoprazole 40 mg tablet,delayed 40 mg PO QDAY #30 ta bs 03/08/25 release ibuprofen 600 mg tablet 600 mg PO Q8H PRN fever or p ain 03/20/25 #20 tabs Allergies Allergy/AdvReac Type Severity Reaction Status Date / Time No Known Allergies Allergy Unverified 11/23/18 10:50 Review of Systems Review of Systems Systems Reviewed: All systems reviewed, normal except as documented Constitutional Constitutional: Reports system reviewed and no additional complaints, except as documented, Denies fatigue, Denies fever(s), Denies headache(s) and Denies weakness Eyes Eyes: Reports system reviewed and no additional complaints, except as documented, Denies blurry vision and Denies change in vision ENT Ears, Nose, Mouth, and Throat: Reports system reviewed and no additional complaints, except as documented, Denies otalgia, Denies headache(s), Denies nasal congestion, Denies throat swelling and Denies vertigo Cardiovascular Cardiovascular: Reports system reviewed and no additional complaints, except as documented, Denies chest pain, Denies dyspnea and Denies dyspnea on exertion Respiratory Respiratory: Reports system reviewed and no additional complaints, except as documented, Denies chest congestion, Denies cough, Denies dyspnea, Denies dyspnea on exertion and Denies wheezing Gastrointestinal Gastrointestinal: Reports system reviewed and no additional complaints, except as documented, Denies abdominal pain, Denies cramping, Denies nausea and Denies vomiting Genitourinary Genitourinary: Reports system reviewed and no additional complaints, except as documented, Denies dysuria and Denies hematuria Musculoskeletal Musculoskeletal: Reports system reviewed and no additional complaints, except as documented and Reports back pain Integumentary/Breasts Skin/Breast: Reports system reviewed and no additional complaints, except as documented and Denies wounds Neurologic Neurologic: Reports system reviewed and no additional complaints, except as documented, Denies confusion, Denies headache(s), Denies lack of coordination, Denies vertigo and Denies weakness Psychiatric Psychiatric: Reports system reviewed and no additional complaints, except as documented, Denies anxiety, Denies confusion, Denies depression, Denies paranoia, Denies suicidal ideation and Denies tactile hallucinations Endocrine Endocrine: Reports system reviewed and no additional complaints, except as documented and Denies fatigue Hematologic/Lymphatic Hematologic/Lymphatic: Reports system reviewed and no additional complaints, except as documented and Denies lymphadenopathy Allergic/Immunologic Allergic/Immunologic: Reports system reviewed and no additional complaints, except as documented, Denies throat swelling, Denies urticaria and Denies wheezing Past Medical History Past Medical History NEUROLOGIC: Negative Seizures CARDIAC: Positive Cardiac Disorders, Peripheral Vascular Disease (vascular stent, unsure which leg) and Hypertension (NON-COMPLIANT); Negative Congestive Heart Failure RESPIRATORY: Negative Chronic Obstructive Pulmonary Disease (COPD) or Asthma GASTROINTESTINAL: Positive Gastrointestinal Bleed and Hiatal Hernia GENITOURINARY: Negative Renal Disease MUSCULOSKELETAL: Positive Fractures (left index finger amputated, right hand fracture) ENDOCRINE: Negative Diabetes Mellitus Type 1 or Diabetes Mellitus Type 2 HEMATOLOGIC: Negative Sickle Cell Disease OTHER HISTORY: Positive MRSA (right arm 2006), Chicken Pox, Measles and Mumps; Negative Blood Transfusions, Blood Transfusion Reaction or Anesthesia Reactions Family History FAMILY HISTORY: Positive Family Cardiac Disorders (dad-NM) and Family Cancer (brother-melanoma) Surgical History SURGICAL: Positive Tonsillectomy Social History SMOKING STATUS: Never smoker SUBSTANCE USE: does not use ED Exam General Limitations: Present no limitations General appearance: Present alert and in no apparent distress Head Head exam: Present atraumatic, normocephalic and normal inspection Eye Eye exam: Present normal appearance, PERRL and EOMI ENT ENT exam: Present normal exam, normal oropharynx and mucous membranes moist Neck Neck exam: Present normal inspection, full ROM, trachea midline and tenderness; Absent meningismus, lymphadenopathy or thyromegaly Chest Chest inspection: Present normal inspection and symmetric chest wall rise Respiratory Respiratory exam: Present normal lung sounds bilaterally Cardiovascular Cardiovascular exam: Present regular rate, normal rhythm and normal heart sounds Abdominal Exam Abdominal exam: Present soft and normal bowel sounds Extremities Exam Extremities exam: Present normal inspection and full ROM Back Exam Back exam: Present normal inspection, full ROM and vertebral tenderness Back 1 view image: 2 1. Tenderness to palpation in the thoracic cervical area Neurological Exam Neurological exam: Present alert, oriented X3 and CN II-XII intact Psychiatric Psychiatric exam: Present normal affect and normal mood Skin Skin exam: Present warm, dry, intact and normal color Course Quality Measures none Orders Category Date Time Status XR cervical spine 2-3V Stat Exams 03/20/25 14:04 Completed XR thoracic spine 3V Stat Exams 03/20/25 14:04 Completed Ketorolac Inj [Toradol Inj] Med 03/20/25 14:04 Discontinued 30 mg IM X1 ONE Vital Signs Vital signs: Vital Signs Temperature 97.8 F 03/20/25 14:00 Pulse Rate 61 03/20/25 14:00 Respiratory Rate 18 03/20/25 14:00 Blood Pressure 176/94 H 03/20/25 14:00 Pulse Oximetry (%) 97 03/20/25 14:00 Oxygen Delivery Method Room Air 03/20/25 14:00 Back Pain / Injury MDM Narrative MDM Narrative:: 65-year-old male with a history of hypertension presents to the emergency room with a chief complaint of neck pain and upper back pain x 2 weeks Patient is hemodynamically stable and in no apparent distress Physical examination shows tenderness and pain to the patient's cervical thoracic area. Patient denies any trauma or any falls or any injury to the area and states his pain has began 2 weeks ago. X-ray of the cervical neck and thoracic spine were completed and were all negative for any acute fracture or dislocation. The x-ray of the cervical spine just showed some degenerative disc disease. There was some incidental finding that there is some heavy carotid vascular calcification. Our radiologist recommends carotid ultrasounds. The patient was educated to follow-up with his primary care provider further management of this calcification. Patient was discharged and educated to follow-up with primary care provider in the next 24 to 48 hours and return to the emergency room for any evidence of worsening signs or symptoms Patient data External records reviewed:: [facility] previous records Clinical information provided by:: patient Social determinants that could affect healthcare access:: none Patient has the following chronic illnesses:: Hypertension How is presenting disease/condition affected by chronic disease/condition?: u neffected by Evaluation data The following diagnostics were reviewed and interpreted by me:: lab results and radiology exam(s) Lab and/or radiology exams considered but not ordered:: Labs and radiology exams considered and ordered Interpretation Summary: Cervical spine [id number]: Adequate alignment cervical vertebral bodies Moderate degenerative disc disease C5-C6, C6-C7 Intact odontoid Incidental note heavy carotid vascular calcification IMPRESSION: Moderate degenerative disc disease C5-C6, C6-C7 Incidental note heavy carotid vascular calcification, consider correlation with carotid Doppler sonography follow-up Thoracic spine [id number]: Upper thoracic dextroscoliosis 12 degrees Severe osteopenia Kyphosis dorsal spine secondary to chronic wedging of lower dorsal vertebral bodies Prominent thoracic spondylosis No acute fracture Mild to moderate diffuse thoracic degenerative disc disease IMPRESSION: Mild to moderate diffuse thoracic degenerative disc disease Medications / Prescriptions Medications or Prescriptions considered but not ordered:: Medication given Medication administrations:: Medication Administration History Discontinued Medications Ketorolac Tromethamine (Ketorolac Inj 60 Mg/2 Ml Vial) 30 mg IM X1 ONE Stop: 03/20/25 14:05 Last Admin: 03/20/25 14:36 Dose: 30 mg Documented By: EF Medication given Consultations Consultation(s) initiated? (list below): No Diagnosis Differential diagnosis back pain/injury: thoracic back pain, discitis and other (Arthritis/degenerative disc disease) Most likely diagnosis given after review of the tests above:: Degenerative disc disease Admission Indicated Admission indicated?: not indicated Admission Request Was there a request for admission?: No Disposition Plan Disposition Plan: Discharge Discharge Attestation Discharge Attestation: The patient and all family members were given an opportunity to ask questions and understood the discharge instructions. Discharge instructions specifically effects, indications for sooner follow up or return to the emergency department, and the expected course of current diagnosis. Patient condition: Stable Discharge Plan Plan Patient Disposition: HOME (Self Care) Discharge Disposition comment: Stable Prescriptions/Referrals Prescriptions/Med Rec: New ibuprofen 600 mg tablet 600 mg PO Q8H PRN (Reason: fever or pain) Qty: 20 0RF No Action metoprolol succinate 25 mg Tablet Extended Release 24 Hr 25 mg PO BID ondansetron 4 mg tablet,disintegrating 4 mg PO Q8H PRN (Reason: nausea and vomiting) Qty: 10 0RF pantoprazole 40 mg tablet,delayed release (DR/EC) 40 mg PO QDAY Qty: 30 0RF Referrals: Shagufta Francis NP [Primary Care Provider] - In 1 week Problem List Clinical Impression: Degenerative disc disease, thoracic Patient/Caregiver Discharge Instructions Education Materials: ED Degenerative Disk Disease Additional Instructions: Please follow-up with your primary care provider in the next 24 to 48 hours Your x-rays of your cervical neck showed moderate degenerative disc disease. There was also an incidental finding of some carotid vascular calcification. Please follow-up with your primary care provider for an ultrasound of your carotids in an outpatient setting. Your x-rays of your thoracic spine also showed degenerative disc disease For any evidence of worsening signs or symptoms return to the emergency room immediately Print Language: Malagasy Stand Alone Forms: [employer] Award Info., Patient Portal Info Letter PA/PLC PROGRAMMER Supervising Physician PA/HAILEY Supervising Physician: Dr. Hicks
[2025-03-20] MEDS: KETOROLAC INJ 60 MG/2 ML VIAL 30 MG IM (14:36)
== END 2025-03-20 17:15 | disposition home or self-care (01) ==
PROVIDERS: Emergency Provider Family Medicine; PCP Nurse Practitioner Family
DX: M51.34 Other intervertebral disc degeneration, thoracic region (principal); M50.322 Other cervical disc degeneration at C5-C6 level
CPT/HCPCS: 72040; 72072; 96372; 99283; J1885

== ENCOUNTER 2025-08-20 06:18 | Inpatient (IN) | payer MEDICARE, MEDICAID, SELFPAY ==
[2025-08-20] VITALS (16 sets, daily range): BP systolic 147–173; BP diastolic 86–127; PULSE 81–99; RESP 16–97; TEMP 35.9–36.8; O2SAT 96–99; BMI 17.3; BMI 15.7
--- NOTE | 2025-08-20 07:11 | EKG_ITS ---
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
--- NOTE | 2025-08-20 07:12 | XR_ITS ---
EXAMINATION: AP chest single view TECHNIQUE: AP portable upright chest single view Date and time: August 20, 2025, 0719 hours, comparison September 30, 2023 INDICATIONS: Shortness of breath chest pain today. FINDINGS: Significant hyperexpansion Scarring, minor at the right base Persistent blunting of the left lateral costophrenic angle No interval pneumonia or pulmonary edema Prominent osteopenia IMPRESSION: COPD with significant hyperexpansion No interval pneumonia or pulmonary edema
--- NOTE | 2025-08-20 07:22 | PD.EDABDPN ---
ED Abdominal Pain RME/HPI General Chief Complaint: Abdominal Pain Stated complaint: generalized pain Time seen by provider: 08/20/25 06:51 Arrival date/time: 08/20/25 06:18 RME / HPI RME / HPI narrative: Patient is 65-year-old male with significant past medical history of hypertension, hiatal hernia s/p repair, GERD, Related Data Home Medications ?Medication ?Instructions ?Recorded ?Confirmed metoprolol succinate 25 mg 25 mg PO BID 11/23/18 03/07/25 tablet,extended release 24 hr Previous Rx's ?Medication ?Instructions ?Recorded ondansetron 4 mg disintegrating 4 mg PO Q8H PRN nausea and 09/30/23 tablet vomiting #10 tabs pantoprazole 40 mg tablet,delayed 40 mg PO QDAY #30 tabs 03/08/25 release ibuprofen 600 mg tablet 600 mg PO Q8H PRN fever or pain 03/20/25 #20 tabs Allergies Allergy/AdvReac Type Severity Reaction Status Date / Time No Known Allergies Allergy Unverified 11/23/18 10:50 Course Orders Category Date Time Status Assistant Production Manager Q4H START 00 Care 08/20/25 06:52 Active Continuous Pulse Oximetry NOW Care 08/20/25 06:52 Active Insert IV STAT Care 08/20/25 06:53 Active Intake and Output Routine Care 08/20/25 06:53 Ordered NPO NOW Care 08/20/25 06:52 Active Occult Blood,Stool (Nursing) NOW Care 08/20/25 06:55 Active Orthostatic Vitals NOW Care 08/20/25 06:52 Active Vital Signs, Non-Routine [id number] Care 08/20/25 07:00 Ordered Vital Signs, Non-Routine [id number] Care 08/20/25 13:00 Ordered Vital Signs, Non-Routine [id number] Care 08/20/25 19:00 Ordered XR chest 1V portable Stat Exams 08/20/25 07:12 Ordered Ammonia Stat Lab 08/20/25 07:08 Received Amylase Stat Lab 08/20/25 07:08 Received CBC Stat Lab 08/20/25 07:08 Received CMP [Comprehensive Metabolic Panel] Stat Lab 08/20/25 07:08 Received Lipase Stat Lab 08/20/25 07:08 Received Magnesium Stat Lab 08/20/25 07:08 Received Partial Thromboplastin Time Stat Lab 08/20/25 07:08 Received Prothrombin Time with INR Stat Lab 08/20/25 07:08 Received Troponin I Stat Lab 08/20/25 07:08 Received Type and Screen Stat Lab 08/20/25 07:08 Received Urinalysis, C/S if Indicated Stat Lab 08/20/25 06:54 Ordered Morphine* Inj Med 08/20/25 06:56 Discontinued 2 mg IVP X1 ONE Ondansetron Inj [Zofran Inj] Med 08/20/25 06:52 Active 4 mg IVP Q1H PRN Pantoprazole Inj [Protonix Inj] Med 08/20/25 06:52 Discontinued 80 mg IVP X1 ONE Sodium Chloride 0.9% 1000 ml [Ns] 1,000 ml Med 08/20/25 06:52 Active IV 999 mls/hr EKG (RT) Stat RT 08/20/25 07:11 Ordered Vital Signs Vital signs: Vital Signs Temperature 98.3 F 08/20/25 06:45 Pulse Rate 94 08/20/25 06:45 Respiratory Rate 19 08/20/25 06:45 Blood Pressure 147/105 H 08/20/25 06:45 Pulse Oximetry (%) 99 08/20/25 06:45 Oxygen Delivery Method Room Air 08/20/25 06:45 Abdominal Pain MDM Medications / Prescriptions Medication administrations:: Medication Administration History Sodium Chloride (Ns) 1,000 mls @ 999 mls/hr IV .Q1H1M ONE Stop: 08/20/25 07:52 Ondansetron HCl (Ondansetron Inj 2 Mg/Ml Inj 2 Ml) 4 mg IVP Q1H PRN PRN Reason: PERSISTENT NAUSEA OR VOMITING Discontinued Medications Morphine Sulfate (Morphine Sulf Inj 4 Mg/Ml Vial) 2 mg IVP X1 ONE Stop: 08/20/25 06:57 Pantoprazole Sodium (Pantoprazole Inj 40 Mg Vial) 80 mg IVP X1 ONE Stop: 08/20/25 06:53 Discharge Plan Prescriptions/Referrals Prescriptions/Med Rec: No Action metoprolol succinate 25 mg Tablet Extended Release 24 Hr 25 mg PO BID ondansetron 4 mg tablet,disintegrating 4 mg PO Q8H PRN (Reason: nausea and vomiting) Qty: 10 0RF pantoprazole 40 mg tablet,delayed release (DR/EC) 40 mg PO QDAY Qty: 30 0RF ibuprofen 600 mg tablet 600 mg PO Q8H PRN (Reason: fever or pain) Qty: 20 0RF Patient/Caregiver Discharge Instructions Print Language: Cymraes
--- NOTE | 2025-08-20 07:26 | EDNOTE_ITS ---
<Statement entered by Ramandeep Bentley MD - 08/20/25 16:33> I, Ramandeep Bentley MD, have reviewed the history, exam, and assessment of the patient. I have evaluated the patient independently and agree with the plan of care documented by [ ]. All diagnostic studies were reviewed and discussed. I confirm the diagnosis as documented by the Resident. I was present during the Medical Decision Making for this patient. The patient's plan of care was created between myself and the Resident and consistent with our discussion of the patient's case. ED GI Bleed RME/HPI General Chief complaint: Abdominal Pain Stated complaint: generalized pain Time Seen by Provider: 08/20/25 06:51 Arrival date/time: 08/20/25 06:18 RME / HPI RME / HPI Narrative: CC: cough up blood Patient is 65-year-old male with significant past medical history of hypertension, hiatal hernia s/p repair, history of Ulcer s/p clip (02/2025), GERD who presented to the emergency room via EMS with a chief complain of generalized body pain that includes epigastric region, chronic back pain, and chest pain and single episode of hematemesis. Single episode of hematemesis with dark blood and also large clot, patient was unable to quantify amount. Per patient has been unable to tolerate anything by mouth. Patient denied recent use of NSAIDs. Last alcoholic drink was 2 weeks ago and drinks at least 7 beers per week. Patient denied current cigarettes but does smoke TCH to alleviate chronic back pain. CBC CMP type and screen chest x-ray EKG troponin Occult Stool Positive Related Data Home Medications ?Medication ?Instructions ?Recorded ?Confirmed metoprolol succinate 25 mg 25 mg PO BID 11/23/1803/07 tablet,extended release 24 hr Previous Rx's ?Medication ?Instructions ?Recorded ondansetron 4 mg disintegrating 4 mg PO Q8H PRN nausea and 09/30/23 tablet vomiting #10 tabs pantoprazole 40 mg tablet,delayed 40 mg PO QDAY #30 ta bs 03/08/25 release ibuprofen 600 mg tablet 600 mg PO Q8H PRN fever or p ain 03/20/25 #20 tabs Allergies Allergy/AdvReac Type Severity Reaction Status Date / Time No Known Allergies Allergy Unverified 11/23/18 10:50 Review of Systems Review of Systems Narrative Review of Systems: General appearance: NO weight change, NO fatigue, NO weakness, NO fever, NO chills, NO night sweats, No cough Skin: NO rash, NO itching, NO sores, NO moles HEENT: NO Trauma, NO nausea, NO vomiting, NO visual changes, NO blurry vision, NO double vision, NO tinnitus, NO vertigo, NO ear discharge, NO rhinorrhea, NO stuffiness, NO sneezing, NO allergy, NO epistaxis. NO Hoarseness, NO sore throat, NO swollen neck. Cardiac: NO Palpitations, NO dyspnea on exertion, NO orthopnea, NO paroxysmal nocturnal dyspnea, NO edema, chest pain Respiratory: NO Shortness of Breath, NO Wheezing, NO Cough, NO Sputum, NO he moptysis GI:NO appetite, Yes nausea, NO vomiting, NO dysphagia, NO changes in bowel frequency, NO stool color, NO diarrhea, NO constipation, Yes hemetemesis, NO hemorrhoids, NO melena, NO hematechezia, Yes abdominal pain, NO jaundice Renal: NO frequency, NO hesitancy, NO urgency, NO hematuria, NO nocturia, NO incontinence MSK: NO muscle weakness, NO gout, NO arthritis, NO muscle stiffness Neuro: NO headaches, NO tremors, NO weakness, NO paralysis, NO seizures, NO loss of consciousness, NO numbness. Hem: NO anemia, NO easy bruising/bleeding, NO petechiae, NO purpura Endo: NO heat/cold intolerance, NO excessive sweating, NO polyuria, NO polydipsia, NO polyphagia, NO thyroid problems, NO diabetes Pysch: NO mood, NO anxiety, NO depression ED Exam Narrative Physical exam: General Appearance: Alert & Oriented X3, well-nourished female who is lying in bed in no acute distress HEENT: Skull symmetrical and atraumatic. Conjunctivae pin and moist. Pupils equal, round, reactive to light and accommodation (PERRL). External ear without lesion or discharge. Straight, nares patient, mucosa pink, no discharge. Cardio: Normal Rate and Rhythm with S1 and S2 heart sounds. No murmurs or extra heart sounds auscultated. No bruits on carotid auscultation. No peripheral edema or cyanosis. Lungs: Symmetric with good expansion. Chest and back non-tender. Breath sounds vesicular without crackles, wheezing or rhonchi Abdomen tenderness at epigastric region, Non-distended, Normal Reactive Bowel Sounds, Neuro: Alert, cooperative, oriented to person, place, and time. Speech clear. CN grossly intact. Upper motor strength 5/5 and Lower motor strength 5/5. Sensation intact. 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 Q4H START 00 Care 08/20/25 06:52 Active Continuous Pulse Oximetry NOW Care 08/20/25 06:52 Completed Insert IV STAT Care 08/20/25 06:53 Active Intake and Output Routine Care 08/20/25 06:53 Ordered NPO NOW Care 08/20/25 06:52 Active Occult Blood,Stool (Nursing) NOW Care 08/20/25 06:55 Active Orthostatic Vitals NOW Care 08/20/25 06:52 Active Vital Signs, Non-Routine [id number] Care 08/20/25 07:00 Ordered Vital Signs, Non-Routine [id number] Care 08/20/25 13:00 Ordered Vital Signs, Non-Routine [id number] Care 08/20/25 19:00 Ordered Consult to Gastroenterology Routine Cons 08/20/25 09:44 Ordered XR chest 1V portable Stat Exams 08/20/25 07:12 Completed Ammonia Stat Lab 08/20/25 07:08 Completed Amylase Stat Lab 08/20/25 07:08 Completed CBC Stat Lab 08/20/25 07:08 Completed CMP [Comprehensive Metabolic Panel] Stat Lab 08/20/25 07:08 Completed Lipase Stat Lab 08/20/25 07:08 Completed Magnesium Stat Lab 08/20/25 07:08 Completed Partial Thromboplastin Time Stat Lab 08/20/25 07:08 Completed Prothrombin Time with INR Stat Lab 08/20/25 07:08 Completed Troponin I Routine Lab 08/20/25 11:00 Ordered Troponin I Stat Lab 08/20/25 07:08 Completed Type and Screen Stat Lab 08/20/25 07:08 Completed Urinalysis, C/S if Indicated Stat Lab 08/20/25 06:54 Ordered Morphine* Inj Med 08/20/25 06:56 Discontinued 2 mg IVP X1 ONE Octreotide Acet Inj [SandoSTATIN Inj] Med 08/20/25 09:57 Discontinued 50 mcg IV X1 ONE Ondansetron Inj [Zofran Inj] Med 08/20/25 06:52 Active 4 mg IVP Q1H PRN Pantoprazole Inj [Protonix Inj] Med 08/20/25 06:52 Discontinued 80 mg IVP X1 ONE Sodium Chloride 0.9% 1000 ml [Ns] 1,000 ml Med 08/20/25 06:52 Discontinued IV 999 mls/hr Sodium Chloride 0.9% [Ns] 100 ml Med 08/20/25 09:57 Ordered Octreotide Acet Inj [SandoSTATIN Inj] 1,000 mcg IV 50 mcg/hr EKG (RT) Stat RT 08/20/25 07:11 Draft Vital Signs Vital signs: Vital Signs Temperature 98.3 F 08/20/25 06:45 Pulse Rate 94 08/20/25 06:45 Respiratory Rate 19 08/20/25 06:45 Blood Pressure 147/105 H 08/20/25 06:45 Pulse Oximetry (%) 99 08/20/25 06:45 Oxygen Delivery Method Room Air 08/20/25 06:45 GI Bleed Patient data External records reviewed:: [facility] previous records Clinical information provided by:: patient Social determinants that could affect healthcare access:: none Patient has the following chronic illnesses:: hypertension, hiatal hernia s/p repair, history of Ulcer s/p clip (02/2025), GERD How is presenting disease/condition affected by chronic disease/condition?: exacerbated by (hx of GERD and Ulcer) Evaluation data The following diagnostics were reviewed and interpreted by me:: lab results, radiology exam(s) and EKG tracing(s) Lab and/or radiology exams considered but not ordered:: none Interpretation Summary: Patient is 65-year-old male with significant past medical history of hypertension, hiatal hernia s/p repair, history of Ulcer s/p clip (02/2025), GERD with chief complain of hemeatemesis. - Hemoglobin 12.5 hematocrit 37.3 MCV 83 - PT 1.1 -Potassium 3.3 low and troponin 0.08 2 repeat at 11AM-->EKG no ST Elevation-->NSTEMI - Lipase 142 but not 3 times, no localized points to right upper quadrant. Cocnern for aucte hematemsis/Upper GI bleed Medications / Prescriptions Medications or Prescriptions considered but not ordered:: none Medication administrations:: Medication Administration History Octreotide Acetate 1,000 mcg/ (Sodium Chloride) 102 mls @ 5.1 mls/hr IV .Q20H MARIA ESTHER; Protocol Stop: 08/25/25 09:57 Ondansetron HCl (Ondansetron Inj 2 Mg/Ml Inj 2 Ml) 4 mg IVP Q1H PRN PRN Reason: PERSISTENT NAUSEA OR VOMITING Last Admin: 08/20/25 08:30 Dose: 4 mg Documented By: VRS Discontinued Medications Sodium Chloride (Ns) 1,000 mls @ 999 mls/hr IV .Q1H1M ONE Stop: 08/20/25 07:52 Last Admin: 08/20/25 08:29 Dose: 999 mls/hr Documented By: VRS Morphine Sulfate (Morphine Sulf Inj 4 Mg/Ml Vial) 2 mg IVP X1 ONE Stop: 08/20/25 06:57 Last Admin: 08/20/25 08:30 Dose: 2 mg Documented By: VRS Octreotide Acetate (Octreotide Acet Inj 50 Mcg/Ml Vial) 50 mcg IV X1 ONE Stop: 08/20/25 09:58 Pantoprazole Sodium (Pantoprazole Inj 40 Mg Vial) 80 mg IVP X1 ONE Stop: 08/20/25 06:53 Last Admin: 08/20/25 08:27 Dose: 80 mg Documented By: RIKYS same as above Consultations Consultation(s) initiated? (list below): Yes Consultation #1 (Physician, Specialty, Details): Gastro- Dr. Tate NPO & EGD Time: 09:52 Diagnosis GI bleed differential diagnosis: Upper gastrointestinal hemorrhage, anal fissure and other (ulcer vs varices ) Most likely diagnosis given after review of the tests above:: Patient is 65-year-old male with significant past medical history of hypertension, hiatal hernia s/p repair, history of Ulcer s/p clip (02/2025), GERD with likely diagnosis of upper GI bleed secondary to gastric ulcers given past medical history based on previous EGD in February 2025, clinical presentation, and occult positive. Admission Indicated Admission indicated?: indicated Explain why admission is indicated or not indicated:: Patient is 65-year-old male with significant past medical history of hypertension, hiatal hernia s/p repair, history of Ulcer s/p clip (02/2025), GERD with chief complain of hemeatemesis concern for upper GI bleed given history of ulcers s/p clip vs varices vs antolin maría tear. Alcohol consumption 1 beer per day. Consulted Gastroenterology, Dr. Tate, admit, EGD today, keep npo protonix and octeotride - The patient's plan was discussed with attending Dr. Sheree Bonilla MD PGY2 Internal Medicine Admission Request Was there a request for admission?: Yes Admission Attestation Admission request attestation: Discussed case with Dr. San, PGY-1, at 10:00 AM from Hospitalist service regarding admission. Discussed patients ED course, exam findings, labs, and radiology results. The Hospitalist agrees to accept the patient for admission. Disposition Plan Disposition Plan: Admit Discharge Plan Plan Patient Disposition: Admit Acute Care w/in Hospital Prescriptions/Referrals Prescriptions/Med Rec: No Action metoprolol succinate 25 mg Tablet Extended Release 24 Hr 25 mg PO BID ondansetron 4 mg tablet,disintegrating 4 mg PO Q8H PRN (Reason: nausea and vomiting) Qty: 10 0RF pantoprazole 40 mg tablet,delayed release (DR/EC) 40 mg PO QDAY Qty: 30 0RF ibuprofen 600 mg tablet 600 mg PO Q8H PRN (Reason: fever or pain) Qty: 20 0RF Referrals: Shagufta Francis SECURITY SUPERVISOR [Primary Care Provider] - In 1 week Problem List Clinical Impression: Acute upper GI bleed Patient/Caregiver Discharge Instructions Print Language: Cymro Stand Alone Forms: [employer] Award Info., Patient Portal Info Letter
[2025-08-20 07:30] LABS: Basophils # (Auto) 0.0 Thou/mm3 (0.0-0.2); Basophils % (Auto) 1 % (0-2.5); Eosinophils # (Auto) 0.1 Thou/mm3 (0.0-0.5); Eosinophils % (Auto) 1 % (0-10); Hematocrit 37.3 % (41.0-53.0); Hemoglobin 12.5 g/dL (13.5-16.0); Immature Granulocytes Auto 0.06 Thou/mm3 (0.00-0.00); Lymphocytes # (Auto) 0.9 Thou/mm3 (1.0-4.8); Lymphocytes % (Auto) 11 % (10-50); Mean Corpuscular HGB Conc 33.5 g/dl (31.0-37.0); Mean Corpuscular Hemoglobin 27.8 pg (25.0-35.0); Mean Corpuscular Volume 83 fL (80-100); Monocytes # (Auto) 0.3 Thou/mm3 (0.0-0.8); Monocytes % (Auto) 4 % (0-12); Neutrophils # (Auto) 7.3 Thou/mm3 (1.8-7.7); Neutrophils % (Auto) 84 % (37-80); Nucleated Red Blood Cell # 0.00 Thou/mm3 (0.00-0.00); Nucleated Red Blood Cell % 0 /100 WBC (0); Platelet Count 231 Thou/mm3 (140-440); RDW Standard Deviation 47.6 fL (35.1-43.9); Red Blood Count 4.50 Miln/mm3 (4.50-5.90); White Blood Count 8.7 Thou/mm3 (3.8-10.6)
[2025-08-20 07:47] LABS: INR 1.0 (0.9-1.3); Partial Thromboplastin Time 34.5 Seconds (22.0-36.0); Prothrombin Time 11.1 Seconds (9.0-12.2)
[2025-08-20 08:06] LABS: Ammonia < 10 uMol/L (11-32)
[2025-08-20 08:13] LABS: Alanine Aminotransferase < 7 U/L (10-49); Albumin, Serum 4.4 gm/dL (3.4-4.8); Albumin/Globulin Ratio 1.6 (1.2-2.2); Alkaline Phosphatase 59 U/L (46-116); Amylase 147 U/L (30-118); Anion Gap 12 (7-16); Aspartate Amino Transferase 15 U/L (0-34); BUN/Creatinine Ratio 19 Ratio (12-20); Bilirubin,Total 0.4 mg/dL (0.3-1.2); Blood Urea Nitrogen 15 mg/dL (9-23); Calcium 9.9 mg/dL (8.3-10.6); Calcium (Corrected) 9.9 mg/dL (8.5-10.1); Carbon Dioxide 23.8 mMol/L (20.0-31.0); Chloride 104 mMol/L (98-107); Creatinine (Component) 0.8 mg/dL (0.6-1.3); Estimated Creatinine Clearance 77.6 mL/min (>60); Globulin 2.8 gm/dL (2.3-3.5); Glucose 97 mg/dL (74-106); Lipase 142 U/L (12-53); Magnesium 1.9 mg/dL (1.6-2.6); Osmolality,Calculated 280 (275-295); Potassium 3.3 mMol/L (3.4-5.1); Sodium 140 mMol/L (136-145); Total Protein 7.2 gm/dL (5.7-8.2); eGFR > 60 See Note
[2025-08-20 08:15] LABS: Troponin I 0.082 ng/mL (0.0-0.045)
[2025-08-20] MEDS: SODIUM CHLORIDE 0.9% 1000 ML 1,000 ML 999 ML IV (08:29)
[2025-08-20] MEDS: MORPHINE SULF INJ 4 MG/ML VIAL 2 MG IVP ×2 (08:30→20:21)
[2025-08-20] MEDS: ONDANSETRON INJ 2 MG/ML INJ 2 ML 4 MG IVP ×3 (08:30→20:12)
[2025-08-20] MEDS: OCTREOTIDE ACET INJ 1,000 MCG in SODIUM CHLORIDE 0.9% 100 ML 5.1 MCG IV (10:48)
[2025-08-20] MEDS: OCTREOTIDE ACET INJ 50 mCg/ML VIAL IV (10:48)
--- NOTE | 2025-08-20 11:12 | ECHO_ITS ---
Patient Info Name: Ramirez Beltran Age: 65 years : 1960 Gender: Male Ht: 188 cm Wt: 61 kg BSA: 1.77 m2 BP: 173 / 127 mmHg Heart Rhythm: Sinus Arrhythmia Exam Date: 08/20/2025 1:22 PM Admit Date: 08/20/2025 Site: [facility] Patient Status: I Technical Quality: Poor Exam Type: CA echo doppler complete Reason for Poor Study: poor echocardiographic windows Section Weaver: Debi Adhikari Ordering Physician: Adela Hawk Study Info Indications NSTEMI - Primary Location: [facility] Left Ventricular Outflow Tract Name Value Normal LVOT 2D LVOT Diameter 2.1 cm LVOT Doppler LVOT Peak Velocity 71 cm/s LVOT Mean Gradient 1 mmHg LVOT VTI 15 cm LVOT VTI/AV VTI Ratio 0.9 LVOT Stroke Volume 53 ml Mitral Valve Name Value Normal MV Doppler MV Decel [place] 230 cm/s2 MV PHT 65 ms MV Area (PHT) 3.4 cm2 4.0-5.0 MV Diastolic Function MV E Peak Velocity 52 cm/s MV A Peak Velocity 70 cm/s MV E/A 0.7 MV Annular TDI MV Septal e' Velocity 7.2 cm/s MV E/e' (Septal) 7.2 MV Lateral e' Velocity 6.9 cm/s MV E/e' (Lateral) 7.6 MV e' Average 7.02 cm/s MV E/e' (Average) 7.4 Tricuspid Valve Name Value Normal TV Annular TDI TV Lateral Ruth s' Velocity 13.5 cm/s >=9.5 Aorta Name Value Normal Ascending Aorta Ao Root Diameter (MM) 3.1 cm Ao Root Diam Index (MM) 1.8 cm/m2 Aortic Valve Name Value Normal AV 2D/MM AV Cusp Sep (MM) 1.9 cm AV Doppler AV Peak Velocity 95 cm/s AV Mean Gradient 2 mmHg AV VTI 17 cm AV Area (Cont Eq VTI) 3.1 cm2 >=3.0 AV Area (Cont Eq Antonio) 2.6 cm2 AV DI (Antonio) 0.75 AV Regurgitation 2D LVOT Area 3.5 cm2 AV Regurgitation Doppler AR Decel [place] 2 cm/s2 AR PHT 22,380 ms Ventricles Name Value Normal LV Dimensions 2D/MM IVS Diastolic Thickness (2D) 0.8 cm 0.6-1.0 LVID Diastole (2D) 4.8 cm 4.2-5.8 LVIW Diastolic Thickness (2D) 1.1 cm 0.6-1.0 LVID Systole (2D) 3.9 cm 2.5-4.0 LVOT Diameter 2.1 cm LV Mass (2D Cubed) 158.82 g 88.00-224.00 LV Mass Index (2D Cubed) 90 g/m2 49-115 Relative Wall Thickness (2D) 0.46 <=0.42 IVS/LVIW Diastolic Thickness (2D) 0.73 0.00-1.50 LV Fractional Shortening/Ejection Fraction 2D/MM LV Fractional Shortening (2D) 19 % 25-43 LV EF (2D Teichhayleyz) 39 % LV Diastolic Volume (4C MOD) 86 ml LV EF (4C MOD) 33 % LV Diastolic Volume (2C MOD) 90 ml LV EF (2C MOD) 37 % LV Diastolic Volume (BP MOD) 91 ml 62-150 LV Diastolic Volume Index (BP MOD) 52 ml/m2 34-74 LV Systolic Volume (BP MOD) 58 ml 21-61 LV Systolic Volume Index (BP MOD) 33 ml/m2 11-31 LV EF (BP MOD) 37 % 52-72 LV Diastolic Length (4C) 7.2 cm LV Systolic Length (4C) 6.9 cm LV Stroke Volume (4C MOD) 29 ml RV Dimensions 2D/MM TV Lateral Ruth s' Velocity 13.5 cm/s >=9.5 Atria Name Value Normal LA Dimensions LA Dimension (MM) 4.0 cm 3.0-4.0 Left Ventricle Left ventricular chamber dimension is normal. Left ventricular systolic function is mildly reduced with visually estimated ejection fraction of 45-50%. There is mild concentric hypertrophy noted in the left ventricle. Left ventricular segmental wall motion is normal. There is grade I diastolic dysfunction in the left ventricle. Right Ventricle Right ventricular chamber dimension is normal. Right ventricular systolic function is normal. Left Atrium Left atrial chamber dimension is normal. Right Atrium Right atrial chamber dimension is normal. Aortic Valve The aortic valve is trileaflet. There is mild aortic valve sclerosis. There is no aortic valve stenosis with a peak velocity of 95 cm/s, mean gradient of 2 mmHg, and aortic valve area of 3.1 cm2. There is mild aortic valve regurgitation. Pulmonic Valve The pulmonic valve is normal. There is no pulmonic valve stenosis. There is no pulmonic regurgitation. Mitral Valve The mitral valve has normal leaflets. There is no mitral valve stenosis. There is no mitral valve regurgitation. Tricuspid Valve The tricuspid valve leaflets are normal. There is no tricuspid valve stenosis. There is trace tricuspid valve regurgitation. Unable to estimate pulmonary artery systolic pressure due to inadequate tricuspid regurgitant envelope. Pericardium/Pleural The pericardium appears normal. There is no pericardial effusion. No pleural effusion visualized. Aorta The aortic measurements are indexed to age and body surface area. Summary 1. The echocardiogram is normal by two-dimensional, color flow imaging, and Doppler interrogation. 2. Left ventricle size is normal and systolic function is mildly reduced. Estimated ejection fraction is 45-50%. There is grade I diastolic dysfunction. There is mild concentric hypertrophy noted. 3. Right ventricle chamber size and systolic function. 4. There is mild aortic valve regurgitation. 5. There is trace tricuspid valve regurgitation. Report Signatures Finalized by Darian Timmons on 08/20/2025 02:48 PM
--- NOTE | 2025-08-20 11:30 | PC.NURSE ---
DR. TRACY MADE AWARE OF ELEVATED BLOOD PRESSURE. NO NEW ORDERS.
[2025-08-20] MEDS: POTASSIUM CHL 10 mEq IVPB 10 MEQ/100 ML BAG 100 MEQ IV ×4 (12:10→15:29)
[2025-08-20 12:15] LABS: Troponin I 0.082 ng/mL (0.0-0.045)
--- NOTE | 2025-08-20 12:23 | PC.NURSE ---
CALL DR. HAMMONDS IN REGARD TO ELEVATED BP. DR. HAMMONDS STATES HE WILL PUT IN ORDERS.
--- NOTE | 2025-08-20 12:42 | ESHP_ITS ---
Documentation for date of: 08/20/25 HPI History of Present Illness Chief complaint: Vomiting bright red blood History of present illness: Mr. Ramirez Beltran is a 65-year-old male with past medical history of hypertension, hiatal hernia status postrepair, history of ulcer status post Endo clip 02/2025, GERD and chronic smoker who presented to [facility] emergency department with a chief complaint of hematemesis. Patient reported that his symptoms started last night and has had multiple episodes of hematemesis with bright red blood, reports that he has had a significant amount. Patient complains of left-sided chest pain radiating to his left shoulder and arm associated with diaphoresis and shortness of breath. Patient denies any cardiac history, positive history of smoking, positive family history of heart attack in father. Patient reports that he underwent hiatal hernia surgery and his symptoms started since then, he has been unable to eat continue to lose weight and underwent multiple interventions with different physicians. Currently was referred to [facility] and has an appointment scheduled outpatient. Patient otherwise denies any blood in stool, dark stools lightheadedness and dizziness. ED Course: ED Vitals: On presentation blood pressure 147/105, heart rate 94, respiratory rate 19, temp 98.3, O2 sat 99 on room air ED Labs: Fingerstick in ED 106, CBC remarkable for hemoglobin 12.5, hematocrit 37.3. CMP remarkable for potassium 3.3, ammonia less than 10, troponin 0.082, amylase 147 lipase 142. Urine analysis remarkable for ketones 2+ ED Imaging: Chest x-ray shows COPD pattern, no pneumonia ED Treatment:Patient was given Protonix 80 mg bolus, 1 L NS bolus, Zofran 4 mg, morphine 2 mg, octreotide bolus and was started on octreotide gtt. in the emergency department. Gastroenterology consulted, patient scheduled for EGD later today Review of Systems Review of Systems Narrative Review of Systems: ROS: -CONSTITUTIONAL: Positive for weight loss, denies fever and chills. -HEENT: Denies changes in vision and hearing. -RESPIRATORY: Denies SOB and cough. -CV: Denies palpitations and positive for Chest Pain. -GI: Positive for abdominal pain, nausea, vomiting, denies constipation and diarrhea. -: Denies dysuria and urinary frequency. -MSK: Denies myalgia and joint pain. -SKIN: Denies rash and pruritus. -NEUROLOGICAL: Denies headache and syncope. -PSYCHIATRIC: Denies recent changes in mood. Denies anxiety and depression. Past Medical History Past Medical History Comments PMH COMMENT: PMH: As above PSHx: Hiatal hernia surgery, multiple surgeries for hiatal hernia repair Allergies: No known drug and food allergies Social history: Lives at home independent ADL/IADL, lives with girlfriend -Smoking: Positive for greater than 40 pack years in the past -Alcohol Use: Positive for occasional alcohol use in the past -Illicit Drug Use: Denies Family History: Positive for heart attack in father, father age 38 Exam Vital Signs Temp Pulse Resp BP Pulse Ox O2 Del Method 97.8 F 84 18 173/127 H 99 Room Air 08/20/25 10:35 08/20/25 11:37 08/20/25 11:37 08/20/25 10:35 08/20/25 10:35 08/20/25 10:35 Narrative Exam Physical Exam General: Awake and in no acute distress. Conversational and non-toxic appearing. Cachectic and frail, emesis at bedside noted with bright red blood. HEENT: Normocephalic, atraumatic, mucous membranes moist. Heart: Regular rate and rhythm, no murmurs. Lungs: Clear to auscultation with no wheezing or crackles. Abdomen: Soft, nondistended, minimal epigastric tenderness, positive bowel sounds. ?No guarding or rebound tenderness. Neurologic: Alert and oriented x3, no gross neurological deficit, and patient able to move all 4 extremities. Extremities: No edema. Skin: No rash or ecchymoses. Results: Labs 08/21/25 05:07 08/21/25 05:07 Labs: Short CBC 08/20/25 Range/Units 07:08 WBC 8.7 (3.8-10.6) Thou/mm3 Hgb 12.5 L (13.5-16.0) g/dL Hct 37.3 L (41.0-53.0) % Plt Count 231 (140-440) Thou/mm3 BMP 08/20/25 07:08 Sodium 140 Potassium 3.3 L Chloride 104 Carbon Dioxide 23.8 BUN 15 Creatinine 0.8 Glucose 97 Calcium 9.9 Cardiac Enzymes 08/20/25 08/20/25 Range/Units 07:08 11:21 Troponin I 0.082 H* 0.082 H* (0.0-0.045) ng/mL Liver Function 08/20/25 Range/Units 07:08 Total Bilirubin 0.4 (0.3-1.2) mg/dL AST 15 (0-34) U/L ALT < 7 L (10-49) U/L Alkaline Phosphatase 59 (46-116) U/L Albumin 4.4 (3.4-4.8) gm/dL Quality Measures Quality Measures none Advance care planning discussed with:: patient Medications Home Medications and Allergies Home Medications ?Medication ?Instructions ?Recorded ?Confirmed ?Type metoprolol succinate 25 mg 25 mg PO DAILY 11/23/1807/06 History tablet,extended release 24 hr ergocalciferol (vitamin D2) 1,250 50,000 unit PO .ONCE WEEK 08/20/25 08/20/25 History mcg (50,000 unit) capsule famotidine 20 mg tablet 20 mg PO DAILY 08/20/2507/06 History metoclopramide HCl 10 mg tablet 10 mg PO QID 08/20/25 08/20/25 History Allergies Allergy/AdvReac Type Severity Reaction Status Date / Time No Known Allergies Allergy Unverified 11/23/18 10:50 Visit Medications Acetaminophen (Acetaminophen 325 Mg Tablet) 650 mg PO Q6H PRN PRN Reason: Fever >101.5 Stop: 09/19/25 11:08 Acetaminophen (Acetaminophen 325 Mg Tablet) 650 mg PO Q6H PRN PRN Reason: PAIN SCALE 1-3 (mild Stop: 09/19/25 11:12 Hydrocodone Bitart/Acetaminophen (Hydrocodone/Apap 5/325 Tablet) 1 tab PO Q6HR PRN PRN Reason: PAIN SCALE 4-6 (Moderate Stop: 08/25/25 11:12 Albuterol/Ipratropium (Albuterol/Ipratropium (Duoneb) Rt Din[place]ah 3 Ml Nebu) 3 ml INH Q6HRRT PRN PRN Reason: SOB/Wheeze Stop: 09/19/25 12:59 Octreotide Acetate 1,000 mcg/ (Sodium Chloride) 102 mls @ 5.1 mls/hr IV .Q20H MARIA ESTHER; Protocol Stop: 08/25/25 09:57 Octreotide Acetate 1,000 mcg/ (Sodium Chloride) 102 mls @ 5.1 mls/hr IV .Q20H ONE; Protocol Stop: 08/21/25 06:14 Last Admin: 08/20/25 10:48 Dose: 50 mcg/hr, 5.1 mls/hr Potassium Chloride (Kcl Ivpb) 10 meq in 100 mls @ 100 mls/hr IV Q1H MARIA ESTHER Stop: 08/20/25 15:16 Last Admin: 08/20/25 12:10 Dose: 100 mls/hr Labetalol HCl (Labetalol Inj 5 Mg/Ml Vial 20 Ml) 10 mg IVP Q4HR PRN PRN Reason: SBP > 160mmHg Stop: 09/19/25 12:22 Morphine Sulfate (Morphine Sulf Inj 4 Mg/Ml Vial) 2 mg IVP Q4HR PRN PRN Reason: PAIN SCALE 7-10 (Severe Stop: 08/25/25 11:12 Ondansetron HCl (Ondansetron Inj 2 Mg/Ml Inj 2 Ml) 4 mg IVP Q6H PRN; Protocol PRN Reason: NAUSEA OR VOMITING Stop: 09/19/25 11:08 Pantoprazole Sodium (Pantoprazole Inj 40 Mg Vial) 40 mg IVP BID [facility] Stop: 09/19/25 20:59 Discontinued Medications Sodium Chloride (Ns) 1,000 mls @ 999 mls/hr IV .Q1H1M ONE Stop: 08/20/25 07:52 Last Admin: 08/20/25 08:29 Dose: 999 mls/hr Morphine Sulfate (Morphine Sulf Inj 4 Mg/Ml Vial) 2 mg IVP X1 ONE Stop: 08/20/25 06:57 Last Admin: 08/20/25 08:30 Dose: 2 mg Octreotide Acetate (Octreotide Acet Inj 50 Mcg/Ml Vial) 50 mcg IV X1 ONE Stop: 08/20/25 09:58 Last Admin: 08/20/25 10:48 Dose: 50 mcg Ondansetron HCl (Ondansetron Inj 2 Mg/Ml Inj 2 Ml) 4 mg IVP Q1H PRN PRN Reason: PERSISTENT NAUSEA OR VOMITING Last Admin: 08/20/25 08:30 Dose: 4 mg Pantoprazole Sodium (Pantoprazole Inj 40 Mg Vial) 80 mg IVP X1 ONE Stop: 08/20/25 06:53 Last Admin: 08/20/25 08:27 Dose: 80 mg Assessment & Plan Plan Assessment and plan: Summary: Mr. Ramirez Beltran is a 65-year-old male with past medical history of hypertension, hiatal hernia status postrepair, history of ulcer status post Endo clip 02/2025, GERD and chronic smoker who presented to [facility] emergency department with a chief complaint of hematemesis. Patient admitted for GI bleed workup. #GI bleed, likely upper #Hematemesis #History of gastric ulcer #History of hiatal hernia repair #Anemia of blood loss 65-year-old male with past medical history of hiatal hernia status postrepair, presented with complaint of hematemesis which started last night, multiple episodes of emesis with bright red blood noted in the ED. Patient hemodynamically stable, blood pressure within normal limits, heart rate less than 100, gastroenterology consulted emergency department. Has complicated history of hiatal hernia repair, has underwent multiple surgeries in the past, scheduled with [facility] to follow-up patient. EGD done in February 2025 showed bleeding gastric ulcers and which endoclips were placed by gastroenterology. Plan: -IV octreotide gtt. (08/20- -IV Protonix twice daily -N.p.o., scheduled for EGD today -Zofran as needed for nausea/vomiting -Bleeding precautions, type and screen was obtained #Elevated troponin, likely type II #NSTEMI type II #Cardiac chest pain Patient complained of left-sided chest pain radiating to his left shoulder and arm associated with diaphoresis and shortness of breath. Patient denies any cardiac history, positive history of smoking, positive family history of heart attack in father. Troponin on presentation elevated 0.082, repeat 0.082 as well Plan: - Trend troponin - Aspirin deferred in setting of GI bleed - Will obtain echocardiogram to assess for regional wall abnormalities #Hypertension Patient has history of hypertension, on metoprolol succinate 25 mg daily. Plan: - Labetalol as needed #Chronic inactive smoker, greater than 40 pack years Chest x-ray shows COPD pattern, patient denies any shortness of breath, never used inhalers in the past, no PFTs obtained. Has not smoked in the last 10 years #Electrolyte imbalance #Hypokalemia -Correct and replace electrolytes as needed #Protein calorie malnutrition, BMI 16.4 Poor p.o. intake in setting of hiatal hernia surgery issues and GI issues - Referral to dietitian - Will consider Ensure once diet is started DVT prophylaxis: SCDs GI prophylaxis: IV Protonix twice daily Diet: N.p.o., pending EGD Lines: Peripheral IV Code status: Full code Case discussed with Attending Physician DO Adela Dewey MD Internal Medicine PGY-2 Disclaimer: This note was dictated by speech recognition. Minor errors in economics professor may be present due to voice recognition software. Attending Provider Attestation/Addendum I have discussed and was present for the essential components of the history, physical examination, diagnosis, and treatment plan with the resident. I agree with the patient's care as documented by the resident and amended herein by me. Jamie Higuera DO. Although this document has been carefully reviewed, there may still be some phonetic and other typographical errors. These errors are purely grammatical due to imperfections in the software program and should not be construed in any way to compromise the substance of the patient's medical care during this visit.
[2025-08-20] MEDS: LABETALOL INJ 5 MG/ML VIAL 20 ML 10 MG IVP ×2 (12:48→21:23)
--- NOTE | 2025-08-20 14:07 | PC.NURSE ---
CALLED REPORT TO ZAY LEWIS ON TELE. ALL QUESTIONS ANSWERED.
[2025-08-20 14:22] LABS: Collection Type, Urine Catheter; Squamous Epithelial Cell,Urine 0 /hpf (0-5)
[2025-08-20 14:41] LABS: Bilirubin,Urine Negative (Negative); Blood,Urine Negative (Negative); Clarity,Urine Clear (Clear/Hazy); Color,Urine Lt-Yellow (Lt Yel-Yel); Culture Indicated,Urine Not Indicated; Glucose, Urine Negative (Negative); Hyaline Casts,Urine < 1 /hpf (0-1); Ketones,Urine 2+ (Negative); Leukocyte Esterase,Urine Negative (Negative); Nitrite,Urine Negative (Negative); PH,Urine 6.5 (5.0-7.0); Protein,Urine Trace (Neg - Trace); RBC,Urine 1 /hpf (0-3); Specific Gravity,Urine 1.020 (1.001-1.035); Urobilinogen,Urine Negative mg/dL (0.0-1.0); WBC,Urine 1 /hpf (0-5)
[2025-08-20 17:12] LABS: Troponin I 0.074 ng/mL (0.0-0.045)
[2025-08-20] MEDS: METOCLOPRAMIDE INJ 5 MG/ML VIAL 2 ML IVP (17:50)
--- NOTE | 2025-08-20 20:07 | PD.IMCONS ---
HPI Data of Consult Requesting Physician: Yossi Higuera DO Primary Care Provider: Shagufta Francis NP Consult Narrative Reason for consult: Hematemesis History of present illness: 65 years old male came into the emergency room episode of hematemesis and found to be FOBT positive Although his hemoglobin was reasonable at 12.5 and 37.3 with a platelet count of 231,000 On 03/05/2025 patient had undergone upper endoscopy showed a large mid body gastric ulcer requiring bipolar gold heater probe and epinephrine injection Attempt to place a Endo Clip felt short as the tissue was very very hard and the Endo Clip was retrieved by the [facility] Patient did very well with the Protonix and has done very well for the last 6 months Currently he is not taking any NSAIDs or blood thinners cc:: cc: Yossi Higuera DO Review of Systems Review of Systems Systems Reviewed: All systems reviewed, normal except as documented Past Medical History Surgical History OTHER SURGICAL HX: Essential hypertension Hiatal hernia Previous history of gastric ulcer Meds Home Medications and Allergies Home Medications ?Medication ?Instructions ?Recorded ?Confirmed ?Type metoprolol succinate 25 mg 25 mg PO DAILY 11/23/18 08/20/25 History tablet,extended release 24 hr ergocalciferol (vitamin D2) 1,250 50,000 unit PO .ONCE WEEK 08/20/25 08/20/25 History mcg (50,000 unit) capsule famotidine 20 mg tablet 20 mg PO DAILY 08/20/25 08/20/25 History metoclopramide HCl 10 mg tablet 10 mg PO QID 08/20/25 08/20/25 History Allergies Allergy/AdvReac Type Severity Reaction Status Date / Time No Known Allergies Allergy Unverified 11/23/18 10:50 Exam Vital Signs Temp Pulse Resp BP Pulse Ox O2 Del Method 96.6 F L 84 20 171/119 H 97 Room Air 08/20/25 14:45 08/20/25 19:05 08/20/25 19:05 08/20/25 14:45 08/20/25 19:05 08/20/25 14:45 Constitutional Comments: Chronically ill-appearing Routine Respiratory Exam Comments: Normal to auscultation Routine Abdominal Exam Comments: Soft nontender Results Labs 08/20/25 07:08 08/20/25 07:08 Labs: Short CBC 08/20/25 Range/Units 07:08 WBC 8.7 (3.8-10.6) Thou/mm3 Hgb 12.5 L (13.5-16.0) g/dL Hct 37.3 L (41.0-53.0) % Plt Count 231 (140-440) Thou/mm3 BMP 08/20/25 07:08 Sodium 140 Potassium 3.3 L Chloride 104 Carbon Dioxide 23.8 BUN 15 Creatinine 0.8 Glucose 97 Calcium 9.9 Cardiac Enzymes 08/20/25 08/20/25 08/20/25 Range/Units 07:08 11:21 16:06 Troponin I 0.082 H* 0.082 H* 0.074 H* (0.0-0.045) ng/mL Liver Function 08/20/25 Range/Units 07:08 Total Bilirubin 0.4 (0.3-1.2) mg/dL AST 15 (0-34) U/L ALT < 7 L (10-49) U/L Alkaline Phosphatase 59 (46-116) U/L Albumin 4.4 (3.4-4.8) gm/dL Urine 08/20/25 Range/Units 14:14 Urine Color Lt-Yellow (Lt Yel-Yel) Urine Clarity Clear (Clear/Hazy) Urine pH 6.5 (5.0-7.0) Ur Specific [place] 1.020 (1.001-1.035) Urine Protein Trace (Neg - Trace) Urine Glucose (UA) Negative (Negative) Assessment and Plan Additional Assessment & Plan Additional Plan: Hematemesis most likely due to the gastric ulcer previously seen on endoscopy on 02/13/2025 although patient did have a Kelly-Taylor tear additional ulcer hemorrhagic gastritis or distal esophageal ulcers Plan Serial CBC Protonix drip at 8 mg/h Clear liquid diet till 12 midnight then n.p.o. Consent obtained for fiberoptic esophagogastroduodenoscopy with possible biopsy possible therapeutic intervention under intravenous moderate sedation Will follow the patient Other medical problems include Essential hypertension Hiatal hernia Previous history of gastric ulcer Thank you very much for the opportunity to participate in the care of this patient
[2025-08-20] MEDS: SCOPOLAMINE 1 MG TDSY TOP (23:01)
[2025-08-20 23:18] LABS: Troponin I 0.073 ng/mL (0.0-0.045)
[2025-08-21] VITALS (27 sets, daily range): BP systolic 141–224; BP diastolic 85–134; PULSE 72–95; RESP 11–96; TEMP 36–36.6; O2SAT 94–100; BMI 16.3
[2025-08-21] MEDS: MORPHINE SULF INJ 4 MG/ML VIAL 2 MG IVP ×2 (00:51→09:40)
[2025-08-21] MEDS: LABETALOL INJ 5 MG/ML VIAL 20 ML 10 MG IVP ×2 (01:25→05:34)
[2025-08-21] MEDS: ONDANSETRON INJ 2 MG/ML INJ 2 ML 4 MG IVP (05:34)
[2025-08-21 05:55] LABS: Basophils # (Auto) 0.0 Thou/mm3 (0.0-0.2); Basophils % (Auto) 0 % (0-2.5); Eosinophils # (Auto) 0.0 Thou/mm3 (0.0-0.5); Eosinophils % (Auto) 0 % (0-10); Hematocrit 31.6 % (41.0-53.0); Hemoglobin 10.7 g/dL (13.5-16.0); Immature Granulocytes Auto 0.07 Thou/mm3 (0.00-0.00); Lymphocytes # (Auto) 0.9 Thou/mm3 (1.0-4.8); Lymphocytes % (Auto) 11 % (10-50); Mean Corpuscular HGB Conc 33.9 g/dl (31.0-37.0); Mean Corpuscular Hemoglobin 27.9 pg (25.0-35.0); Mean Corpuscular Volume 83 fL (80-100); Monocytes # (Auto) 0.3 Thou/mm3 (0.0-0.8); Monocytes % (Auto) 4 % (0-12); Neutrophils # (Auto) 7.1 Thou/mm3 (1.8-7.7); Neutrophils % (Auto) 84 % (37-80); Nucleated Red Blood Cell # 0.00 Thou/mm3 (0.00-0.00); Nucleated Red Blood Cell % 0 /100 WBC (0); Platelet Count 250 Thou/mm3 (140-440); RDW Standard Deviation 47.0 fL (35.1-43.9); Red Blood Count 3.83 Miln/mm3 (4.50-5.90); White Blood Count 8.5 Thou/mm3 (3.8-10.6)
[2025-08-21 06:49] LABS: Alanine Aminotransferase < 7 U/L (10-49); Albumin, Serum 4.2 gm/dL (3.4-4.8); Albumin/Globulin Ratio 1.8 (1.2-2.2); Alkaline Phosphatase 49 U/L (46-116); Anion Gap 16 (7-16); Aspartate Amino Transferase 13 U/L (0-34); BUN/Creatinine Ratio 19 Ratio (12-20); Bilirubin,Total 0.4 mg/dL (0.3-1.2); Blood Urea Nitrogen 15 mg/dL (9-23); Calcium 9.5 mg/dL (8.3-10.6); Calcium (Corrected) 9.5 mg/dL (8.5-10.1); Carbon Dioxide 19.6 mMol/L (20.0-31.0); Cardiac Risk Estimate 2.9 RATIO (4.0-6.7); Chloride 104 mMol/L (98-107); Cholesterol 103 mg/dL (132-200); Creatinine (Component) 0.8 mg/dL (0.6-1.3); Estimated Creatinine Clearance 73.2 mL/min (>60); Free T4 (Free Thyroxine) 1.24 ng/dL (0.89-1.76); Globulin 2.4 gm/dL (2.3-3.5); Glucose 148 mg/dL (74-106); HDL Cholesterol 36 mg/dL (40-60); LDL Cholesterol,Calculated 47 mg/dL (0-130); Magnesium 1.8 mg/dL (1.6-2.6); Osmolality,Calculated 283 (275-295); Phosphorous 3.1 mg/dL (2.4-5.1); Potassium 3.7 mMol/L (3.4-5.1); Sodium 140 mMol/L (136-145); Thyroid Stimulating Hormone 0.18 uIU/mL (0.55-4.78); Total Protein 6.6 gm/dL (5.7-8.2); Triglycerides 98 mg/dL (30-150); eGFR > 60 See Note
[2025-08-21 06:51] LABS: Troponin I 0.072 ng/mL (0.0-0.045)
--- NOTE | 2025-08-21 07:57 | PD.RESPRO ---
Documentation for date of: 08/21/25 Subjective Subjective Interval history: Received EGD today. Changed to protonix drip 8mg /hr from IV. Added Metoprolol 25mg po qd According to nursing staff, the patient had episodes of hematemesis throughout the night. On examination this morning, the patient was actively vomiting thick, bloody emesis. He was given IV Reglan 5mg x1 and IV Morphine 2mg x1. His BP was elevated peaking 224/113. Patient was already on IV Labetalol 10mg q4hr prn. Added his home medication Metoprolol Succinate 25mg po qd. His BP likely resulting from significant distress he was experiencing from vomiting. Patient recieved IV hydralazine 10mg x2 during EGD. Will not go too aggressive on his BP control at this moment. EGD (08/21/2025) showed oozing gastric ulcer with oozing hemorrhage(Moi class Ib). 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 The bleeding vessel could not be endoscopically fixed. The ulcer will continue to bleed even after embolization of the bleeding vessel. GI, Dr. Tate, will talk to Dr. Marquez in [facility] for transfer and surgical consultation. NG tube placed. Stat CTA abd/pelvis ordered. Started on Protonix drip 8mg/hr continuous infusion, Carafate suspension 1g 4 times daily throught NG tube, Maalox 15ml via NG tube q4hr. H&H ordered at 5pm, and 2 units of pRBC will be ordered for possible transfusion. Patient's Hgb dropped from 12.5 to 10.7 today. Exam Vital Signs Temp Pulse Resp BP Pulse Ox O2 Del Method 97.3 F 75 17 173/97 H 95 Room Air 08/21/25 07:49 08/21/25 07:49 08/21/25 07:49 08/21/25 07:49 08/21/25 07:49 08/21/25 07:49 Narrative Exam General: AAO x3, Frail, Cachetic, elderly, Constant bloody emesis. Eye: PERRL, EOMI, normal conjunctiva, no scleral icterus HENT: Normocephalic, atraumatic, hearing intact to conversation at normal volume, moist oral mucosa Neck: Supple, non-tender, no JVD, no lymphadenopathy Lungs: Non-labored respirations, symmetric chest rise, Clear to auscultate bilaterally, No wheezing, rhonchi, crackles Heart: Peripheral pulses intact bilaterally, Regular Rate and Rhythm. Abdomen: Soft, non-tender, non-distended, no palpable masses Musculoskeletal: Normal range of motion and strength, No cyanosis or edema, No visible joint swelling Skin: Skin is warm, dry, no rashes or lesions. Psychiatric: Cooperative, appropriate mood and affect, Awake and alert, not agitated Neuro: Cranial nerves II-XII grossly intact. Sensations intact to light touch. Objective Labs 08/21/25 05:07 08/21/25 05:07 Labs: Laboratory Results - last 24 hr 08/20/25 08/20/25 08/20/25 07:08 11:21 14:14 WBC RBC Hgb Hct MCV MCH MCHC RDW Std Deviation Plt Count Neut % (Auto) Lymph % (Auto) [place] % (Auto) Eos % (Auto) Baso % (Auto) Neut # (Auto) Lymph # (Auto) [place] # (Auto) Eos # (Auto) Baso # (Auto) Immature Gran # (Auto) Absolute Nucleated RBC Immature Gran % Nucleated RBC % Sodium 140 Potassium 3.3 L Chloride 104 Carbon Dioxide 23.8 Anion Gap 12 BUN 15 Creatinine 0.8 Estim Creat Clear Calc 77.6 eGFR > 60 BUN/Creatinine Ratio 19 Glucose 97 Calculated Osmolality 280 Calcium 9.9 Corrected Calcium 9.9 Phosphorus Magnesium 1.9 Total Bilirubin 0.4 AST 15 ALT < 7 L Alkaline Phosphatase 59 Ammonia < 10 L Troponin I 0.082 H* 0.082 H* Total Protein 7.2 Albumin 4.4 Globulin 2.8 Albumin/Globulin Ratio 1.6 Triglycerides Cholesterol LDL Cholesterol, Calc HDL Cholesterol Cholesterol/HDL Ratio Amylase 147 H Lipase 142 H TSH Free T4 Ur Collection Type Catheter Urine Color Lt-Yellow Urine Clarity Clear Urine pH 6.5 Ur Specific [place] 1.020 Urine Protein Trace Urine Glucose (UA) Negative Urine Ketones 2+ A Urine Blood Negative Urine Nitrite Negative Urine Bilirubin Negative Urine Urobilinogen (Auto) Negative Ur Leukocyte Esterase Negative Urine RBC 1 Urine WBC 1 Ur Squamous Epith Cells 0 Urine Bacteria None Hyaline Casts < 1 Ur Culture Indicated? Not Indicated Blood Type O Positive Antibody Screen NEGATIVE Blood Bank Wristband ID Yes 08/20/25 08/20/25 08/21/25 16:06 22:38 05:07 WBC 8.5 RBC 3.83 L Hgb 10.7 L Hct 31.6 L MCV 83 MCH 27.9 MCHC 33.9 RDW Std Deviation 47.0 H Plt Count 250 Neut % (Auto) 84 H Lymph % (Auto) 11 [place]asper % (Auto) 4 Eos % (Auto) 0 Baso % (Auto) 0 Neut # (Auto) 7.1 Lymph # (Auto) 0.9 L [place] # (Auto) 0.3 Eos # (Auto) 0.0 Baso # (Auto) 0.0 Immature Gran # (Auto) 0.07 H Absolute Nucleated RBC 0.00 Immature Gran % 1 H Nucleated RBC % 0 Sodium 140 Potassium 3.7 Chloride 104 Carbon Dioxide 19.6 L Anion Gap 16 BUN 15 Creatinine 0.8 Estim Creat Clear Calc 73.2 eGFR > 60 BUN/Creatinine Ratio 19 Glucose 148 H D Calculated Osmolality 283 Calcium 9.5 Corrected Calcium 9.5 Phosphorus 3.1 Magnesium 1.8 Total Bilirubin 0.4 AST 13 ALT < 7 L Alkaline Phosphatase 49 Ammonia Troponin I 0.074 H* 0.073 H* 0.072 H* Total Protein 6.6 Albumin 4.2 Globulin 2.4 Albumin/Globulin Ratio 1.8 Triglycerides 98 Cholesterol 103 L LDL Cholesterol, Calc 47 HDL Cholesterol 36 L Cholesterol/HDL Ratio 2.9 L Amylase Lipase TSH 0.18 L Free T4 1.24 Ur Collection Type Urine Color Urine Clarity Urine pH Ur Specific [place] Urine Protein Urine Glucose (UA) Urine Ketones Urine Blood Urine Nitrite Urine Bilirubin Urine Urobilinogen (Auto) Ur Leukocyte Esterase Urine RBC Urine WBC Ur Squamous Epith Cells Urine Bacteria Hyaline Casts Ur Culture Indicated? Blood Type Antibody Screen Blood Bank Wristband ID Quality Measures Quality Measures none Assessment & Plan Assessment Current Active Medications: Generic Name Dose Route Start Last Admin Trade Name Freq PRN Reason Stop Dose Admin Acetaminophen 650 mg 08/20/25 11:09 Acetaminophen 325 Mg Tablet PO 09/19/25 11:08 Q6H PRN Fever >101.5 Acetaminophen 650 mg 08/20/25 11:13 Acetaminophen 325 Mg Tablet PO 09/19/25 11:12 Q6H PRN PAIN SCALE 1-3 (mild Hydrocodone Bitart/Acetaminophen 1 tab 08/20/25 11:13 Hydrocodone/Apap 5/325 Tablet PO 08/25/25 11:12 Q6HR PRN PAIN SCALE 4-6 (Moderate Albuterol/Ipratropium 3 ml 08/20/25 11:24 Albuterol/Ipratropium (Duoneb) Rt Dinorah 3 Ml Nebu INH 09/19/25 12:59 Q6HRRT PRN SOB/Wheeze Octreotide Acetate 1,000 mcg/ 102 mls @ 5.1 mls/hr 08/21/25 06:15 Sodium Chloride IV 08/25/25 09:57 .Q20H MARIA ESTHER Protocol 50 MCG/HR Pantoprazole Sodium 80 mg in 100 mls @ 10 mls/hr 08/21/25 07:55 Protonix/Ns 80mg Iv Premix IV 08/24/25 05:54 Q10H MARIA ESTHER Labetalol HCl 10 mg 08/20/25 12:23 08/21/25 05:34 Labetalol Inj 5 Mg/Ml Vial 20 Ml IVP 09/19/25 12:22 10 mg Q4HR PRN Administration SBP > 160mmHg Metoprolol Succinate 25 mg 08/21/25 09:00 Metoprolol Succinate Xl 25 Mg Tabcr PO 09/20/25 08:59 QDAY MARIA ESTHER Morphine Sulfate 2 mg 08/20/25 11:13 08/21/25 00:51 Morphine Sulf Inj 4 Mg/Ml Vial IVP 08/25/25 11:12 2 mg Q4HR PRN Administration PAIN SCALE 7-10 (Severe Ondansetron HCl 4 mg 08/20/25 11:09 08/21/25 05:34 Ondansetron Inj 2 Mg/Ml Inj 2 Ml IVP 09/19/25 11:08 4 mg Q6H PRN Administration NAUSEA OR VOMITING Protocol Plan Summary: Mr. Ramirez Beltran is a 65-year-old male with past medical history of hypertension, hiatal hernia status postrepair, history of ulcer status post Endo clip 02/2025, GERD and chronic smoker who presented to [facility] emergency department with a chief complaint of hematemesis. Patient admitted for GI bleed workup. #Upper GI bleed #Gastric ulcer (Moi 1b) #Hematemesis #History of gastric ulcer #History of hiatal hernia repair #Anemia of blood loss 65-year-old male with past medical history of hiatal hernia status postrepair, presented with complaint of hematemesis which started last night, multiple episodes of emesis with bright red blood noted in the ED. Patient hemodynamically stable, blood pressure within normal limits, heart rate less than 100, gastroenterology consulted emergency department. Has complicated history of hiatal hernia repair, has underwent multiple surgeries in the past, scheduled with [facility] [place] to follow-up patient. EGD done in February 2025 showed bleeding gastric ulcers and which endoclips were placed by gastroenterology. -EGD (08/21/2025): showed oozing gastric ulcer with oozing hemorrhage(Moi class Ib). 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 The bleeding vessel could not be endoscopically fixed. The ulcer will continue to bleed even after embolization of the bleeding vessel. Plan: -IV octreotide gtt. (08/20- -IV Protonix twice daily -N.p.o., scheduled for EGD today -Zofran as needed for nausea/vomiting -Bleeding precautions, type and screen was obtained #Elevated troponin, likely type II #NSTEMI type II #Cardiac chest pain Patient complained of left-sided chest pain radiating to his left shoulder and arm associated with diaphoresis and shortness of breath. Patient denies any cardiac history, positive history of smoking, positive family history of heart attack in father. Troponin on presentation elevated 0.082, repeat 0.082 as well Plan: - Trend troponin - Aspirin deferred in setting of GI bleed - Will obtain echocardiogram to assess for regional wall abnormalities #Hypertension Patient has history of hypertension, on metoprolol succinate 25 mg daily. Plan: - Labetalol as needed #Chronic inactive smoker, greater than 40 pack years Chest x-ray shows COPD pattern, patient denies any shortness of breath, never used inhalers in the past, no PFTs obtained. Has not smoked in the last 10 years #Electrolyte imbalance #Hypokalemia -Correct and replace electrolytes as needed #Protein calorie malnutrition, BMI 16.4 Poor p.o. intake in setting of hiatal hernia surgery issues and GI issues - Referral to dietitian - Will consider Ensure once diet is started DVT prophylaxis: SCDs GI prophylaxis: IV Protonix twice daily Diet: N.p.o., pending EGD Lines: Peripheral IV Code status: Full code
[2025-08-21 08:26] LABS: Free T4 (Free Thyroxine) 1.19 ng/dL (0.89-1.76)
--- NOTE | 2025-08-21 08:37 | ESCONSULT_ITS ---
<Statement entered by Darian Timmons MD - 08/22/25 17:30> The patient clinically examined by me with resident physician all essential components are reviewed as documented patient came to the hospital GI bleeding gastric ulcer possibly getting endoscopy incidentally found to have mild to moderate LV dysfunction ejection fraction 45% complains of atypical chest pain may or may not be cardiac in nature evaluated patient with resident physician agree with treatment plan recommendation as documented will continue to monitor the patient closely no need for any anticoagulation no need for any specific therapy for heart failure since clinically does not appear to be in heart failure. May require cardiac workup as an outpatient following discharge. Evaluated patient with resident physician PGY 2 DR. YADAV and agree with resident and plan recommendation as documented we will continue to monitor the patient HPI Data of Consult Requesting Physician: Yossi Higuera DO Admitting Provider: Yossi Higuera DO Attending Provider: Yossi Higuera DO Primary Care Provider: Shagufta Francis NP Consult Narrative Reason for consult: Demand ischemia, HFpEF History of present illness: 65-year-old male with past medical history of hypertension, hiatal hernia status postrepair, history of ulcer status post Endo clip 02/2025, GERD and chronic smoker who presented to [facility] emergency department with a chief complaint of hematemesis. Patient admitted for GI bleed workup. Cardiology consulted for elevated troponin likely demand ischemia secondary to GI bleed along with heart failure with preserved ejection fraction. Patient denies following up with cardiology in the past but does state that he has left- sided chest discomfort which has been ongoing for several months. Patient was seen by PCP for the chest discomfort but it was apparently attributed to GI versus musculoskeletal condition. Patient denies having any palpitations, orthopnea, PND, lower extremity edema or shortness of breath. Patient has not had any cardiac workup in the past. Patient states that the pain feels like a dull sensation in the left axillary region without any radiation to the arm or jaw. Patient has had multiple surgeries for hiatal hernia and follows up with [facility] Past medical history: As above Past surgical history: Hiatal hernia surgery, multiple surgeries for hiatal hernia repair Allergies: NKDA Medications: As stated above Family history: Patient's father had a heart attack at age 38, no other cardiac history Social history: Patient lives at home with girlfriend, able to take care of himself, [id number] history, occasional alcohol use but denies any illicit drug use ROS: All 12 systems assessed and the patient denies unless otherwise stated in HPI cc:: cc: Yossi Higuera, DO Exam Vital Signs Temp Pulse Resp BP Pulse Ox O2 Del Method 97.3 F 75 17 173/97 H 95 Room Air 08/21/25 07:49 08/21/25 07:49 08/21/25 07:49 08/21/25 07:49 08/21/25 07:49 08/21/25 07:49 Narrative Exam Physical Exam General: Awake, Cachectic and frail, emesis at bedside noted with bright red blood. HEENT: Normocephalic, atraumatic, mucous membranes moist. Heart: Regular rate and rhythm, no murmurs. Lungs: Clear to auscultation with no wheezing or crackles. Abdomen: Soft, nondistended, minimal epigastric tenderness, positive bowel sounds. ?No guarding or rebound tenderness. Extremities: No edema, No rash or ecchymoses. Neuro: Alert oriented x 3, moves extremities x 4, no focal neurologic deficits noted Results Labs 08/21/25 20:00 08/21/25 05:07 Labs: Short CBC 08/21/25 Range/Units 05:07 WBC 8.5 (3.8-10.6) Thou/mm3 Hgb 10.7 L (13.5-16.0) g/dL Hct 31.6 L (41.0-53.0) % Plt Count 250 (140-440) Thou/mm3 BMP 08/21/25 05:07 Sodium 140 Potassium 3.7 Chloride 104 Carbon Dioxide 19.6 L BUN 15 Creatinine 0.8 Glucose 148 H D Calcium 9.5 Cardiac Enzymes 08/20/25 08/20/25 08/20/25 Range/Units 11:21 16:06 22:38 Troponin I 0.082 H* 0.074 H* 0.073 H* (0.0-0.045) ng/mL 08/21/25 Range/Units 05:07 Troponin I 0.072 H* (0.0-0.045) ng/mL Liver Function 08/21/25 Range/Units 05:07 Total Bilirubin 0.4 (0.3-1.2) mg/dL AST 13 (0-34) U/L ALT < 7 L (10-49) U/L Alkaline Phosphatase 49 (46-116) U/L Albumin 4.2 (3.4-4.8) gm/dL Urine 08/20/25 Range/Units 14:14 Urine Color Lt-Yellow (Lt Yel-Yel) Urine Clarity Clear (Clear/Hazy) Urine pH 6.5 (5.0-7.0) Ur Specific [place] 1.020 (1.001-1.035) Urine Protein Trace (Neg - Trace) Urine Glucose (UA) Negative (Negative) Quality Measures Quality Measures none Advance care planning discussed with:: patient Medications Home Medications and Allergies Home Medications ?Medication ?Instructions ?Recorded ?Confirmed ?Type metoprolol succinate 25 mg 25 mg PO DAILY 11/23/1807/06 History tablet,extended release 24 hr ergocalciferol (vitamin D2) 1,250 50,000 unit PO .ONCE WEEK 08/20/25 08/20/25 History mcg (50,000 unit) capsule famotidine 20 mg tablet 20 mg PO DAILY 08/20/2507/06 History metoclopramide HCl 10 mg tablet 10 mg PO QID 08/20/25 08/20/25 History Allergies Allergy/AdvReac Type Severity Reaction Status Date / Time No Known Allergies Allergy Unverified 11/23/18 10:50 Visit Medications Acetaminophen (Acetaminophen 325 Mg Tablet) 650 mg PO Q6H PRN PRN Reason: Fever >101.5 Stop: 09/19/25 11:08 Acetaminophen (Acetaminophen 325 Mg Tablet) 650 mg PO Q6H PRN PRN Reason: PAIN SCALE 1-3 (mild Stop: 09/19/25 11:12 Hydrocodone Bitart/Acetaminophen (Hydrocodone/Apap 5/325 Tablet) 1 tab PO Q6HR PRN PRN Reason: PAIN SCALE 4-6 (Moderate Stop: 08/25/25 11:12 Albuterol/Ipratropium (Albuterol/Ipratropium (Duoneb) Rt Dinorah 3 Ml Nebu) 3 ml INH Q6HRRT PRN PRN Reason: SOB/Wheeze Stop: 09/19/25 12:59 Pantoprazole Sodium (Protonix/Ns 80mg Iv Premix) 80 mg in 100 mls @ 10 mls/hr IV Q10H MARIA ESTHER Stop: 08/24/25 05:54 Potassium Chloride (Kcl Ivpb) 10 meq in 100 mls @ 100 mls/hr IV Q1H MARIA ESTHER Stop: 08/21/25 12:15 Magnesium Sulfate (Magnesium Sulfate Ivpb) 2 gm in 50 mls @ 25 mls/hr IV X1 ONE Stop: 08/21/25 10:16 Labetalol HCl (Labetalol Inj 5 Mg/Ml Vial 20 Ml) 10 mg IVP Q4HR PRN PRN Reason: SBP > 160mmHg Stop: 09/19/25 12:22 Last Admin: 08/21/25 05:34 Dose: 10 mg Metoprolol Succinate (Metoprolol Succinate Xl 25 Mg Tabcr) 25 mg PO QDAY MARIA ESTHER Stop: 09/20/25 08:59 Morphine Sulfate (Morphine Sulf Inj 4 Mg/Ml Vial) 2 mg IVP Q4HR PRN PRN Reason: PAIN SCALE 7-10 (Severe Stop: 08/25/25 11:12 Last Admin: 08/21/25 00:51 Dose: 2 mg Ondansetron HCl (Ondansetron Inj 2 Mg/Ml Inj 2 Ml) 4 mg IVP Q6H PRN; Protocol PRN Reason: NAUSEA OR VOMITING Stop: 09/19/25 11:08 Last Admin: 08/21/25 05:34 Dose: 4 mg Discontinued Medications Sodium Chloride (Ns) 1,000 mls @ 999 mls/hr IV .Q1H1M ONE Stop: 08/20/25 07:52 Last Infusion: 08/20/25 13:49 Dose: Infused Octreotide Acetate 1,000 mcg/ (Sodium Chloride) 102 mls @ 5.1 mls/hr IV .Q20H MARIA ESTHER; Protocol Stop: 08/25/25 09:57 Octreotide Acetate 1,000 mcg/ (Sodium Chloride) 102 mls @ 5.1 mls/hr IV .Q20H ONE; Protocol Stop: 08/21/25 06:14 Last Admin: 08/20/25 10:48 Dose: 50 mcg/hr, 5.1 mls/hr Potassium Chloride (Kcl Ivpb) 10 meq in 100 mls @ 100 mls/hr IV Q1H MARIA ESTHER Stop: 08/20/25 15:16 Last Admin: 08/20/25 15:29 Dose: 100 mls/hr Influenza Virus Vaccine Quadrival (Influenza Virus 0.5 Ml Syringe ) 0.5 ml IMi .ONCE ONE Stop: 08/20/25 15:38 Metoclopramide HCl (Metoclopramide Inj 5 Mg/Ml Vial 2 Ml) 5 mg IVP X1 ONE; Protocol Stop: 08/20/25 17:22 Last Admin: 08/20/25 17:50 Dose: 5 mg Morphine Sulfate (Morphine Sulf Inj 4 Mg/Ml Vial) 2 mg IVP X1 ONE Stop: 08/20/25 06:57 Last Admin: 08/20/25 08:30 Dose: 2 mg Octreotide Acetate (Octreotide Acet Inj 50 Mcg/Ml Vial) 50 mcg IV X1 ONE Stop: 08/20/25 09:58 Last Admin: 08/20/25 10:48 Dose: 50 mcg Ondansetron HCl (Ondansetron Inj 2 Mg/Ml Inj 2 Ml) 4 mg IVP Q1H PRN PRN Reason: PERSISTENT NAUSEA OR VOMITING Last Admin: 08/20/25 08:30 Dose: 4 mg Pantoprazole Sodium (Pantoprazole Inj 40 Mg Vial) 80 mg IVP X1 ONE Stop: 08/20/25 06:53 Last Admin: 08/20/25 08:27 Dose: 80 mg Pantoprazole Sodium (Pantoprazole Inj 40 Mg Vial) 40 mg IVP BID MARIA ESTHER Stop: 09/19/25 20:59 Last Admin: 08/20/25 20:11 Dose: 40 mg Scopolamine (Scopolamine 1 Mg Tdsy) 1 mg TOP X1 ONE Stop: 08/20/25 22:49 Last Admin: 08/20/25 23:01 Dose: 1 mg Assessment & Plan Plan 65-year-old male with past medical history of hypertension, hiatal hernia status postrepair, history of ulcer status post Endo clip 02/2025, GERD and chronic smoker who presented to [facility] emergency department with a chief complaint of hematemesis. Patient admitted for GI bleed workup. Cardiology consulted for elevated troponin likely demand ischemia secondary to GI bleed along with heart failure with preserved ejection fraction #Heart failure with preserved ejection fraction, ejection fraction 45-50% #Grade 1 diastolic dysfunction #Mild concentric hypertrophy #Mild aortic valve regurgitation #Trace tricuspid valve regurgitation Class II NYHA Heart Failure Classification Patient does not appear to be in acute heart failure exacerbation as he does not have any clinical signs of heart failure Patient is on room air, no peripheral edema no JVD or crackles on lung auscultation Echo on 08/20/2025 shows normal by two-dimensional, color flow imaging, and Doppler interrogation. Left ventricle size is normal and systolic function is mildly reduced. Estimated ejection fraction is 45-50%. There is grade I diastolic dysfunction. There is mild concentric hypertrophy noted. Right ventricle chamber size and systolic function. There is mild aortic valve regurgitation. There is trace tricuspid valve regurgitation. Plan: Start GDMT as tolerable Patient appears to be on metoprolol succinate 25 mg for hypertension, continue for GDMT Consider adding JASPAL/ARB/ARNI, spironolactone Follow-up with cardiology within 1 to 2 weeks of discharge #Elevated troponin, peaked and downtrended #NSTEMI type II On assessment, patient does have noted left chest pain which is not worsened with deep inspiration Presented with troponin that has plateaued since admission from 0.082-0.072 on 5 different readings No concerning EKG changes noted Echo as above shows normal left ventricular size and function Plan: Treat underlying cause of demand ischemia, likely GI bleed Stop trending troponin Monitor for any changes in symptoms or chest pain Follow-up with cardiology outpatient #GI bleed, likely upper #Hematemesis #History of gastric ulcer #History of hiatal hernia repair #Anemia of blood loss #Hypertension #History of tobacco dependence #Protein calorie malnutrition, BMI 16.4 Patient appears much older than stated age and cachectic, there is some concern for possible underlying malignancy. Would recommend following up if the patient's had preventative cancer screening for both lung and colorectal cancer. Patient seen and assessed with attending Dr. Iain Yadav, DO PGY-2 Internal Medicine - [facility]
[2025-08-21] MEDS: PANTOPRAZOLE/NS 80MG IV PREMIX 80 MG/100 ML BAG 10 MG IV ×2 (08:59→20:23)
[2025-08-21] MEDS: Magnesium Sulfate 2 GM Ivpb 2 GM/50 ML BAG IV (09:00)
[2025-08-21] MEDS: POTASSIUM CHL 10 mEq IVPB 10 MEQ/100 ML BAG 100 MEQ IV (09:00)
[2025-08-21] MEDS: METOPROLOL SUCCINATE XL 25 MG TABCR PO (09:00)
[2025-08-21] MEDS: METOCLOPRAMIDE INJ 5 MG/ML VIAL 2 ML IVP (09:41)
[2025-08-21] MEDS: OCTREOTIDE ACET INJ 1,000 MCG in SODIUM CHLORIDE 0.9% 100 ML 5.1 MCG IV (10:58)
--- NOTE | 2025-08-21 10:58 | PC.DIETICIAN ---
Nutrition recommendations: Patient meets ASPEN criteria for Severe chronic disease or condition related malnutrition. When indicated, consider: 1. Clear Liquids. 2. Advance as tolerated to: - Cardiac, PUD/GERD/[place] (adjust food/liquids consistency as needed) - Ensure Plus 240ml TID with meals. 3. Thiamine 100 mg/d for 7-10 days. 4. Multivitamins/Minerals. 5. Daily labs for P, K, and Mg; replace as needed.
--- NOTE | 2025-08-21 12:59 | XR_ITS ---
Examination: Abdomen AP single view Technique: AP portable supine abdomen, single view Exam date and time: August 21, 2025, 1350 hours INDICATIONS: Post orogastric tube placement FINDINGS: Orogastric tube is coiled in the esophagus Multiple air distended small bowel loops IMPRESSION: Recommend removing the orogastric tube completely and reinserting
--- NOTE | 2025-08-21 13:00 | XR_ITS ---
Examination: CTA abdomen with intravenous contrast CTA pelvis with intravenous contrast 2-D sagittal reconstructions. 2-D coronal reconstructions. 3-D reconstructions. Date and time of exam: August 21, 2025, 1523 hours INDICATIONS: Generalized abdominal pain and history vomiting blood COMPARISON: March 04, 2025 CTDI: vol (mGy): 16.9 DLP: (mGycm): 345 Technique: Multiple CTA 1.25 mm axial sections of the chest abdomen have been obtained. 2-D sagittal and coronal reconstructions have been obtained. 3-D reconstructions have been obtained. 3D postprocessing angiographic imaging Low dose protocols were performed. One or more of the following dose reduction techniques were used; automated exposure control, adjustment of the mA and/or KV according to patient size, use of iterative reconstruction technique. Findings: Prominent retrocardiac gastric hernia No visualized liver or splenic lesion No gallstones No pancreatic mass No renal or ureteral calculi, no hydronephrosis Heavy abdominal aortic calcification, no aneurysmal dilatation Normal appendix No bowel obstruction Colonic diverticulosis, no diverticulitis Prostatomegaly, transverse prostate dimension 6 cm No bladder mass or bladder calculi Significant osteopenia IMPRESSION: Large retrocardiac gastric hernia No renal or ureteral calculi, no hydronephrosis Normal appendix No bowel obstruction diverticulitis colitis or enteritis pattern
--- NOTE | 2025-08-21 13:01 | SUR.PHASEI ---
pt received from OR in recovery bay 4. pt asleep but responds to voice, breathing unlabored on room air. v/s stable. pt has ng tube in place. report received from Rosa LEWIS.
--- NOTE | 2025-08-21 13:37 | SUR.PHASEI ---
pt asleep but responds to voice, breathing unlabored on room air. v/s stable. ng tube in place. report called to Arielle LEWIS. pt will be transferred to room at this time.
--- NOTE | 2025-08-21 14:23 | ESDS_ITS ---
<Statement entered by Jeff Madden MD - 08/21/25 16:31> Patient seen and examined at bedside. I discussed and supervised with the intern brand physician who took care of this patient. I personally saw and examined the patient. I agree with most of the assessment and plan. Plan of care discussed with attending Dr. Higuera. Jeff Madden MD PGY-2 Planned Discharge Date 08/21/25 DS: Providers Provider Date of admission: 08/20/25 11:09 Primary care physician: Shagufta Francis NP Admitting Provider: Yossi Higuera DO Attending Provider on Admission: Yossi Higuera DO Consults: 08/20/25 09:44 Consult to Gastroenterology Routine Comment: hematemesis/GI bleed Consulting Provider: Allison Tate 08/20/25 19:08 Consult to Cardiology Routine Comment: New Onset HFmreF Consulting Provider: Darian Timmons 08/20/25 19:18 Referral Registered Dietitian Routine Comment: Protein calorie malnutrition, BMI 16.4 Attending Provider on DC: Jose Ramon Cabrera DO Discharging Provider: Jose Ramon Cabrera DO DS: Diagnosis Problem List Completed Was Problem List Reviewed/Reconciled?: Yes Hospital Course Hospital Course Hospital course: Summary: Mr. Ramirez Beltran is a 65-year-old male with past medical history of hypertension, hiatal hernia status postrepair, history of ulcer status post Endo clip 02/2025, GERD and chronic smoker who presented to [facility] emergency department with a chief complaint of hematemesis. Patient admitted on 08/20/2025 for GI bleed workup. 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 GI wanted patient to be transferred to tertiary center for management of his bleeding ulcer. Patient was discharged on 08/21/2025 for transfer to tertiary center for higher level of care. ED course: ED Vitals: On presentation blood pressure 147/105, heart rate 94, respiratory rate 19, temp 98.3, O2 sat 99 on room air ED Labs: Fingerstick in ED 106, CBC remarkable for hemoglobin 12.5, hematocrit 37.3. CMP remarkable for potassium 3.3, ammonia less than 10, troponin 0.082, amylase 147 lipase 142. Urine analysis remarkable for ketones 2+ ED Imaging: Chest x-ray shows COPD pattern, no pneumonia ED Treatment:Patient was given Protonix 80 mg bolus, 1 L NS bolus, Zofran 4 mg, morphine 2 mg, octreotide bolus and was started on octreotide gtt. in the emergency department. Gastroenterology consulted, patient scheduled for EGD later today Hospital Course: Upon admission to the hospital, patient was given IV octreotide gtt, IV pantoprazole 40 mg twice daily. Patient's troponin peaked at 0.073, likely type II troponemia. Since admission, patient had constant episodes of hematemesis. On examination in the morning of 08/21, the patient was actively vomiting thick, bloody emesis. He was given IV Reglan 5mg x1 and IV Morphine 2mg x1. His BP was elevated peaking 224/113. Patient was already on IV Labetalol 10mg q4hr prn. Added his home medication Metoprolol Succinate 25mg po qd. His BP likely resulting from significant distress he was experiencing from vomiting. Patient received IV hydralazine 10mg x2 during EGD. EGD (08/21/2025) showed oozing gastric ulcer with oozing hemorrhage(Moi class Ib). The ulcer was very large and looked malignant. The bleeding vessel could not be endoscopically fixed. The ulcer would continue to bleed even if he were to receive embolization of the bleeding vessel. GI, Dr. Tate, wanted patient to be transferred to tertiary center and receive surgical consultation. Given Protonix drip 8mg/hr continuous infusion, Carafate suspension 1g 4 times daily.Maalox 15ml q4hr. Patient's Hgb dropped from 12.5 to 10.7 today. NG tube placed. Discharged on 08/21/2025 for transfer to tertiary center for higher level of care. #GI bleed, likely upper #Hematemesis #History of gastric ulcer #History of hiatal hernia repair #Anemia of blood loss #Elevated troponin, likely type II #NSTEMI type II #Cardiac chest pain #Hypertension #Chronic inactive smoker, greater than 40 pack years #Electrolyte imbalance #Hypokalemia #Protein calorie malnutrition, BMI 16.4 Instructions: Assessment and plan discussed with my attending physician Dr. Higuera and Dr. Madden (PGY-2) Dr. Cabrera (PGY-1) - Internal medicine resident Status at Discharge Overall status at discharge: patient is not back to baseline Time Spent with Patient Time attestation: Total time spent providing and/or coordinating discharge services: Time spent: Greater than 30 minutes Exam Vital Signs Temp Pulse Resp BP Pulse Ox O2 Del Method O2 Flow Rate 97.2 F 88 13 145/91 H 97 Room Air 3 08/21/25 13:30 08/21/25 13:30 08/21/25 13:30 08/21/25 13:30 08/21/25 13:30 08/21/25 12:00 08/21/25 12:45 Narrative Exam General: AAO x3, In acute distress, Frail, Cachetic, Constant hematemesis. Eye: Normal conjunctiva, no scleral icterus HENT: Normocephalic, atraumatic, hearing intact to conversation at normal volume, moist oral mucosa Neck: Supple, non-tender, no JVD, no lymphadenopathy Lungs: Symmetric chest rise, Clear to auscultate bilaterally, No wheezing, rhonchi, crackles Heart: Peripheral pulses intact bilaterally, Regular Rate and Rhythm. Abdomen: Soft, non-tender, non-distended, no palpable masses, epigastric tenderness. Musculoskeletal: Normal range of motion and strength, No cyanosis or edema, No visible joint swelling Skin: Skin is warm, dry, no rashes or lesions. Psychiatric: Cooperative, appropriate mood and affect, Awake and alert, not agitated Neuro: Cranial nerves II-XII grossly intact. Sensations intact to light touch. Discharge Plan Plan Patient Disposition: Xfer Other Facility Pt Being Transferred to: [facility] Service Needed for Transfer: General Surgery Patient condition on transfer: Stable Care Plan Goals: -You are being transferred to [facility] for surgical management for Gastric Ulcer -After your surgical treatment, you will continue your care and receive the appropriate treatments as determined by [facility]. -Please follow up with Dr. Iain Farmer (Cardiology) within 2 weeks as you may need a left heart cath. Prescriptions/Referrals Prescriptions/Med Rec: Continued metoprolol succinate 25 mg Tablet Extended Release 24 Hr 25 mg PO DAILY famotidine 20 mg tablet 20 mg PO DAILY ergocalciferol (vitamin D2) 1,250 mcg (50,000 unit) capsule 50,000 unit PO .ONCE WEEK Patient Comments: 1 CAPSULE 1 TIME A WEEK metoclopramide HCl 10 mg tablet 10 mg PO QID Patient Comments: TAKE 1 TABLET BY MOUTH FOUR TIMES A DAY ondansetron 4 mg tablet,disintegrating 4 mg PO Q8H PRN (Reason: nausea and vomiting) Qty: 10 0RF pantoprazole 40 mg tablet,delayed release (DR/EC) 40 mg PO QDAY Qty: 30 0RF Discontinued ibuprofen 600 mg tablet 600 mg PO Q8H PRN (Reason: fever or pain) Qty: 20 0RF Referrals: Shagufta Francis NP [Primary Care Provider] Patient/Caregiver Discharge Instructions Print Language: Azeri Stand Alone Forms: [employer] Info., Patient Portal Info Letter Discharge Order Discharge Orders: Discharge (Routine); Ordered 08/22/25 Ordered By: Jeff Madden Quality Discharge Quality Measures VTE prophylaxis Attestestation Attestation Attempting to transfer patient to [facility] however not ready for transfer on 08/21.
[2025-08-21] MEDS: POTASSIUM CHL 10 mEq IVPB 10 MEQ/100 ML BAG 25 MEQ IV ×2 (14:26→20:01)
--- NOTE | 2025-08-21 14:30 | XR_ITS ---
EXAMINATION: AP chest single view TECHNIQUE: AP portable sitting chest single view Date and time: August 21 0 25, 1440 hours INDICATIONS: Post orogastric tube placement FINDINGS: Orogastric tube sidehole at the GE junction Normal heart size No pneumonia IMPRESSION: Advance the orogastric tube 7 cm
[2025-08-21] MEDS: SUCRALFATE SUSP 1 GM/10 ML UDC PO ×2 (17:01→20:26)
--- NOTE | 2025-08-21 17:14 | PC.NURSE ---
Per MD holding off on NG tube for now, pending Dr. Tate orders. Tried to insert NG 3x with charge nurse and each time was unsuccessful. Patient's nose started to bleed so we asked MD for break. Tried to insert NG 2x after break and patient's nose began to bleed again. Patient states he is trying his best to swallow but is holding his breath when we insert the NG tube.
--- NOTE | 2025-08-21 17:26 | ESCONSULT_ITS ---
HPI Data of Consult Requesting Physician: Yossi Higuera DO Admitting Provider: Yossi Higuera DO Attending Provider: Yossi Higuera DO Primary Care Provider: Shagufta Francis NP Consult Narrative History of present illness: Ramirez Beltran is a 65 yo male with a PMH of hypertension, GERD, previous gastric ulcer most likely associated with chronic aspirin use, and a repaired hiatal hernia presents to the hospital with left epigastric pain that radiates to the back. He had similar pain about a year ago when he was last hospitalized for another gastric ulcer due to chronic aspirin use. This time these pains began about a month ago and progressively worsened until 08/20 when he had his first episode of hematemesis and chills without fever. He admits to persistent gastric reflux, along with not having a meal or a BM for the past 8 days due to anorexia that persisted after the hiatal hernia repair estimated 7 years ago. Because of this, he is unsure if his weight loss is due to anorexia or another cause. CT confirmed the recurrence of the hiatal hernia, and EGD visualized a gastric ulcer with pathology results pending. cc:: cc: Yossi Higuera DO Review of Systems Review of Systems Systems Reviewed: All systems reviewed, normal except as documented Past Medical History Surgical History OTHER SURGICAL HX: L leg stent placement Exam Vital Signs Temp Pulse Resp BP Pulse Ox O2 Del Method O2 Flow Rate 97.9 F 72 20 158/98 H 95 Room Air 3 08/21/25 16:00 08/21/25 16:00 08/21/25 16:00 08/21/25 16:00 08/21/25 16:00 08/21/25 16:00 08/21/25 12:45 Constitutional Constitutional: no acute distress, thin and cachectic Routine Respiratory Exam Respiratory: Present normal breath sounds and no resp distress; Absent wheezes, rales or crackles Routine Cardiovascular Exam Cardiovascular: Present RRR, S1 and S2 Routine Abdominal Exam Abdominal: Present soft, normoactive bowel sounds and tenderness (mild tenderness to deep palpation on ULQ); Absent distended, rebound, Puckett Mcneill's sign or Caleb's sign Results Labs 08/22/25 05:18 08/22/25 05:18 Labs: Short CBC 08/21/25 Range/Units 05:07 WBC 8.5 (3.8-10.6) Thou/mm3 Hgb 10.7 L (13.5-16.0) g/dL Hct 31.6 L (41.0-53.0) % Plt Count 250 (140-440) Thou/mm3 BMP 08/21/25 05:07 Sodium 140 Potassium 3.7 Chloride 104 Carbon Dioxide 19.6 L BUN 15 Creatinine 0.8 Glucose 148 H D Calcium 9.5 Cardiac Enzymes 08/20/25 08/21/25 Range/Units 22:38 05:07 Troponin I 0.073 H* 0.072 H* (0.0-0.045) ng/mL Liver Function 08/21/25 Range/Units 05:07 Total Bilirubin 0.4 (0.3-1.2) mg/dL AST 13 (0-34) U/L ALT < 7 L (10-49) U/L Alkaline Phosphatase 49 (46-116) U/L Albumin 4.2 (3.4-4.8) gm/dL Impressions Impression: 65M with PMH of hypertension, GERD, previous gastric ulcer most likely associated with chronic aspirin use, and a repaired hiatal hernia presents to the hospital with left epigastric pain that radiates to the back. He is not in acute distress, still experiencing hematemasis, with a 4/[address] and ECG confirmed gastric ulcer and hiatal hernia recurrence. Biopsy of gastric ulcer is pending but per GI is concerning for malignancy. If so pt will require gastrectomy which will require transfer to a tertiary center Quality Measures Quality Measures VTE prophylaxis Advance care planning discussed with:: other Medications Home Medications and Allergies Home Medications ?Medication ?Instructions ?Recorded ?Confirmed ?Type metoprolol succinate 25 mg 25 mg PO DAILY 11/23/1807/06 History tablet,extended release 24 hr ergocalciferol (vitamin D2) 1,250 50,000 unit PO .ONCE WEEK 08/20/25 08/20/25 History mcg (50,000 unit) capsule famotidine 20 mg tablet 20 mg PO DAILY 08/20/2507/06 History metoclopramide HCl 10 mg tablet 10 mg PO QID 08/20/25 08/20/25 History Allergies Allergy/AdvReac Type Severity Reaction Status Date / Time No Known Allergies Allergy Unverified 11/23/18 10:50 Visit Medications Acetaminophen (Acetaminophen 325 Mg Tablet) 650 mg PO Q6H PRN PRN Reason: Fever >101.5 Stop: 09/19/25 11:08 Acetaminophen (Acetaminophen 325 Mg Tablet) 650 mg PO Q6H PRN PRN Reason: PAIN SCALE 1-3 (mild Stop: 09/19/25 11:12 Hydrocodone Bitart/Acetaminophen (Hydrocodone/Apap 5/325 Tablet) 1 tab PO Q6HR PRN PRN Reason: PAIN SCALE 4-6 (Moderate Stop: 08/25/25 11:12 Al Hydrox/Mg Hydrox/Simethicone (Mg Hyd/Al Hyd/Maximo (Maalox Reg) Susp 30 Ml Udc) 15 ml PO Q4HR MARIA ESTHER Stop: 09/20/25 13:59 Albuterol/Ipratropium (Albuterol/Ipratropium (Duoneb) Rt [place] 3 Ml Nebu) 3 ml INH Q6HRRT PRN PRN Reason: SOB/Wheeze Stop: 09/19/25 12:59 Pantoprazole Sodium (Protonix/Ns 80mg Iv Premix) 80 mg in 100 mls @ 10 mls/hr IV Q10H MARIA ESTHER Stop: 08/24/25 05:54 Last Admin: 08/21/25 08:59 Dose: 10 mls/hr Octreotide Acetate 1,000 mcg/ (Sodium Chloride) 102 mls @ 5.1 mls/hr IV .Q20H MARIA ESTHER; Protocol Stop: 08/26/25 10:16 Last Admin: 08/21/25 10:58 Dose: 50 mcg/hr, 5.1 mls/hr Labetalol HCl (Labetalol Inj 5 Mg/Ml Vial 20 Ml) 10 mg IVP Q4HR PRN PRN Reason: SBP > 160mmHg Stop: 09/19/25 12:22 Last Admin: 08/21/25 05:34 Dose: 10 mg Metoprolol Succinate (Metoprolol Succinate Xl 25 Mg Tabcr) 25 mg PO QDAY MARIA ESTHER Stop: 09/20/25 08:59 Last Admin: 08/21/25 09:00 Dose: 25 mg Morphine Sulfate (Morphine Sulf Inj 4 Mg/Ml Vial) 2 mg IVP Q4HR PRN PRN Reason: PAIN SCALE 7-10 (Severe Stop: 08/25/25 11:12 Last Admin: 08/21/25 00:51 Dose: 2 mg Ondansetron HCl (Ondansetron Inj 2 Mg/Ml Inj 2 Ml) 4 mg IVP Q6H PRN; Protocol PRN Reason: NAUSEA OR VOMITING Stop: 09/19/25 11:08 Last Admin: 08/21/25 05:34 Dose: 4 mg Sucralfate (Sucralfate Susp 1 Gm/10 Ml Udc) 1 gm PO QID [facility] Stop: 09/20/25 12:59 Last Admin: 08/21/25 17:01 Dose: 1 gm Discontinued Medications Al Hydrox/Mg Hydrox/Simethicone (Mg Hyd/Al Hyd/Maximo (Maalox Reg) Susp 30 Ml Udc) 15 ml NG Q4HR [facility] Stop: 09/20/25 13:59 Benzocaine (Benzocaine 20% (Hurricaine) [place] 1 Dose) 0 dose TOP X1 ONE Stop: 08/21/25 12:10 Diphenhydramine HCl (Diphenhydramine Inj 50 Mg/Ml Vial) 25 mg IVP PRNMRX1 PRN PRN Reason: MODERATE SEDATION Fentanyl Citrate (Fentanyl Cit Inj 50 Mcg/Ml Amp 2ml) 50 mcg IVP Q2M PRN PRN Reason: MODERATE SEDATION Hydralazine HCl (Hydralazine Inj 20 Mg/Ml Vial) 10 mg IVP X1 ONE Stop: 08/21/25 12:29 Hydralazine HCl (Hydralazine Inj 20 Mg/Ml Vial) 10 mg IVP X1 ONE Stop: 08/21/25 12:38 Sodium Chloride (Ns) 1,000 mls @ 999 mls/hr IV .Q1H1M ONE Stop: 08/20/25 07:52 Last Infusion: 08/20/25 13:49 Dose: Infused Octreotide Acetate 1,000 mcg/ (Sodium Chloride) 102 mls @ 5.1 mls/hr IV .Q20H [facility]; Protocol Stop: 08/25/25 09:57 Last Admin: 08/21/25 09:39 Dose: Not Given Octreotide Acetate 1,000 mcg/ (Sodium Chloride) 102 mls @ 5.1 mls/hr IV .Q20H ONE; Protocol Stop: 08/21/25 06:14 Last Admin: 08/20/25 10:48 Dose: 50 mcg/hr, 5.1 mls/hr Potassium Chloride (Kcl Ivpb) 10 meq in 100 mls @ 100 mls/hr IV Q1H MARIA ESTHER Stop: 08/20/25 15:16 Last Admin: 08/20/25 15:29 Dose: 100 mls/hr Potassium Chloride (Kcl Ivpb) 10 meq in 100 mls @ 100 mls/hr IV Q1H MARIA ESTHER Stop: 08/21/25 12:15 Last Admin: 08/21/25 14:26 Dose: 25 mls/hr Magnesium Sulfate (Magnesium Sulfate Ivpb) 2 gm in 50 mls @ 25 mls/hr IV X1 ONE Stop: 08/21/25 10:16 Last Admin: 08/21/25 09:00 Dose: 25 mls/hr Sodium Chloride (Ns) 500 mls @ 20 mls/hr IV .Q24H ONE Stop: 08/22/25 12:08 Influenza Virus Vaccine Quadrival (Influenza Virus 0.5 Ml Syringe 2025-26) 0.5 ml IMi .ONCE ONE Stop: 08/20/25 15:38 Metoclopramide HCl (Metoclopramide Inj 5 Mg/Ml Vial 2 Ml) 5 mg IVP X1 ONE; Protocol Stop: 08/20/25 17:22 Last Admin: 08/20/25 17:50 Dose: 5 mg Metoclopramide HCl (Metoclopramide Inj 5 Mg/Ml Vial 2 Ml) 5 mg IVP X1 ONE; Protocol Stop: 08/21/25 09:28 Last Admin: 08/21/25 09:41 Dose: 5 mg Midazolam HCl (Midazolam Inj 1 Mg/Ml Vial 2 Ml) 2 mg IVP Q2M PRN PRN Reason: Moderate Sedation Morphine Sulfate (Morphine Sulf Inj 4 Mg/Ml Vial) 2 mg IVP X1 ONE Stop: 08/20/25 06:57 Last Admin: 08/20/25 08:30 Dose: 2 mg Morphine Sulfate (Morphine Sulf Inj 4 Mg/Ml Vial) 2 mg IVP X1 ONE Stop: 08/21/25 09:27 Last Admin: 08/21/25 09:40 Dose: 2 mg Octreotide Acetate (Octreotide Acet Inj 50 Mcg/Ml Vial) 50 mcg IV X1 ONE Stop: 08/20/25 09:58 Last Admin: 08/20/25 10:48 Dose: 50 mcg Ondansetron HCl (Ondansetron Inj 2 Mg/Ml Inj 2 Ml) 4 mg IVP Q1H PRN PRN Reason: PERSISTENT NAUSEA OR VOMITING Last Admin: 08/20/25 08:30 Dose: 4 mg Pantoprazole Sodium (Pantoprazole Inj 40 Mg Vial) 80 mg IVP X1 ONE Stop: 08/20/25 06:53 Last Admin: 08/20/25 08:27 Dose: 80 mg Pantoprazole Sodium (Pantoprazole Inj 40 Mg Vial) 40 mg IVP BID MARIA ESTHER Stop: 09/19/25 20:59 Last Admin: 08/20/25 20:11 Dose: 40 mg Scopolamine (Scopolamine 1 Mg Tdsy) 1 mg TOP X1 ONE Stop: 08/20/25 22:49 Last Admin: 08/20/25 23:01 Dose: 1 mg Sucralfate (Sucralfate Susp 1 Gm/10 Ml Udc) 1 gm NG QID MARIA ESTHER Stop: 09/20/25 12:59 Assessment & Plan Plan [facility] for upper GI expertise.
[2025-08-21] MEDS: MG HYD/AL HYD/SIME (Maalox Reg) SUSP 30 ML UDC 15 ML PO ×2 (18:19→23:04)
[2025-08-21 20:07] LABS: Hematocrit 31.5 % (41.0-53.0); Hemoglobin 10.8 g/dL (13.5-16.0)
[2025-08-21] MEDS: POTASSIUM CHL 10 mEq IVPB 10 MEQ/100 ML BAG 35 MEQ IV (23:03)
[2025-08-22] VITALS (9 sets, daily range): BP systolic 138–158; BP diastolic 84–99; PULSE 67–718; RESP 15–98; TEMP 36.3–36.6; O2SAT 97–98; BMI 16.1
[2025-08-22] MEDS: PANTOPRAZOLE/NS 80MG IV PREMIX 80 MG/100 ML BAG 10 MG IV ×2 (06:13→12:56)
[2025-08-22 06:14] LABS: Basophils # (Auto) 0.0 Thou/mm3 (0.0-0.2); Basophils % (Auto) 0 % (0-2.5); Eosinophils # (Auto) 0.1 Thou/mm3 (0.0-0.5); Eosinophils % (Auto) 1 % (0-10); Hematocrit 28.2 % (41.0-53.0); Hemoglobin 9.6 g/dL (13.5-16.0); Immature Granulocytes Auto 0.07 Thou/mm3 (0.00-0.00); Lymphocytes # (Auto) 0.8 Thou/mm3 (1.0-4.8); Lymphocytes % (Auto) 7 % (10-50); Mean Corpuscular HGB Conc 34.0 g/dl (31.0-37.0); Mean Corpuscular Hemoglobin 27.9 pg (25.0-35.0); Mean Corpuscular Volume 82 fL (80-100); Monocytes # (Auto) 0.6 Thou/mm3 (0.0-0.8); Monocytes % (Auto) 5 % (0-12); Neutrophils # (Auto) 10.4 Thou/mm3 (1.8-7.7); Neutrophils % (Auto) 87 % (37-80); Nucleated Red Blood Cell # 0.00 Thou/mm3 (0.00-0.00); Nucleated Red Blood Cell % 0 /100 WBC (0); Platelet Count 223 Thou/mm3 (140-440); RDW Standard Deviation 47.0 fL (35.1-43.9); Red Blood Count 3.44 Miln/mm3 (4.50-5.90); White Blood Count 12.0 Thou/mm3 (3.8-10.6)
[2025-08-22] MEDS: SUCRALFATE SUSP 1 GM/10 ML UDC PO ×3 (06:15→16:30)
[2025-08-22] MEDS: MG HYD/AL HYD/SIME (Maalox Reg) SUSP 30 ML UDC 15 ML PO ×3 (06:15→12:55)
[2025-08-22 06:34] LABS: Alanine Aminotransferase < 7 U/L (10-49); Albumin, Serum 3.8 gm/dL (3.4-4.8); Albumin/Globulin Ratio 1.7 (1.2-2.2); Alkaline Phosphatase 44 U/L (46-116); Anion Gap 11 (7-16); Aspartate Amino Transferase 12 U/L (0-34); BUN/Creatinine Ratio 15 Ratio (12-20); Bilirubin,Total 0.4 mg/dL (0.3-1.2); Blood Urea Nitrogen 12 mg/dL (9-23); Calcium 9.3 mg/dL (8.3-10.6); Calcium (Corrected) 9.5 mg/dL (8.5-10.1); Carbon Dioxide 24.4 mMol/L (20.0-31.0); Chloride 106 mMol/L (98-107); Creatinine (Component) 0.8 mg/dL (0.6-1.3); Estimated Creatinine Clearance 72.4 mL/min (>60); Globulin 2.2 gm/dL (2.3-3.5); Glucose 121 mg/dL (74-106); Magnesium 2.0 mg/dL (1.6-2.6); Osmolality,Calculated 281 (275-295); Phosphorous 2.4 mg/dL (2.4-5.1); Potassium 3.6 mMol/L (3.4-5.1); Sodium 141 mMol/L (136-145); Total Protein 6.0 gm/dL (5.7-8.2); eGFR > 60 See Note
[2025-08-22] MEDS: METOPROLOL SUCCINATE XL 25 MG TABCR PO (08:06)
[2025-08-22] MEDS: HYDROcodone/APAP 5/325 TABLET 1 TAB PO (08:17)
--- NOTE | 2025-08-22 08:33 | ESPR_ITS ---
<Statement entered by Darian Timmons MD - 08/22/25 17:10> I personally examined this patient evaluated in rounds with resident physician team agree with treatment plan recommendation as documented patient clearly has atypical chest pain on the left side of the chest radiating to the left arm at times but also has gastric ulcer precluding giving any anticoagulation. Not convinced that the chest pain is cardiac in nature EKGs are completely normal patient does have mild LV dysfunction cardiac echo but no evidence of heart failure. Recommend continue medical management no aspirin or antiplatelet therapy at this time following discharge I recommend seeing me in the office might consider doing nuclear imaging stress test as an outpatient. Evaluate the patient with the resident team and agree with the treatment plan recommendation as documented by PGY 1 Dr. Tomas Lopez Documentation for date of: 08/22/25 Subjective Subjective Interval history: Patient was seen and examined at bedside today; no acute events overnight. EGD showed 3 cm cratered gastric ulcer. Surgery consulted. Exam Vital Signs Temp Pulse Resp BP Pulse Ox O2 Del Method O2 Flow Rate 97.4 F 68 16 146/91 H 98 Room Air 3 08/22/25 08:00 08/22/25 08:06 08/22/25 08:00 08/22/25 08:06 08/22/25 08:00 08/22/25 08:00 08/21/25 12:45 Narrative Exam Physical Exam General: Awake, Cachectic and frail, NG tube present HEENT: Normocephalic, atraumatic, mucous membranes moist. Heart: Regular rate and rhythm, no murmurs. Lungs: Clear to auscultation with no wheezing or crackles. Abdomen: Soft, nondistended, minimal epigastric tenderness, positive bowel sounds. ?No guarding or rebound tenderness. Extremities: No edema, No rash or ecchymoses. Neuro: Alert oriented x 3, moves extremities x 4, no focal neurologic deficits noted Objective Labs 08/22/25 05:18 08/22/25 05:18 Labs: Laboratory Results - last 24 hr 08/21/25 08/22/25 20:00 05:18 WBC 12.0 H D RBC 3.44 L Hgb 10.8 L 9.6 L Hct 31.5 L 28.2 L MCV 82 MCH 27.9 MCHC 34.0 RDW Std Deviation 47.0 H Plt Count 223 Neut % (Auto) 87 H Lymph % (Auto) 7 L [place] % (Auto) 5 Eos % (Auto) 1 Baso % (Auto) 0 Neut # (Auto) 10.4 H Lymph # (Auto) 0.8 L [place] # (Auto) 0.6 Eos # (Auto) 0.1 Baso # (Auto) 0.0 Immature Gran # (Auto) 0.07 H Absolute Nucleated RBC 0.00 Immature Gran % 1 H Nucleated RBC % 0 Sodium 141 Potassium 3.6 Chloride 106 Carbon Dioxide 24.4 Anion Gap 11 BUN 12 Creatinine 0.8 Estim Creat Clear Calc 72.4 eGFR > 60 BUN/Creatinine Ratio 15 Glucose 121 H Calculated Osmolality 281 Calcium 9.3 Corrected Calcium 9.5 Phosphorus 2.4 Magnesium 2.0 Total Bilirubin 0.4 AST 12 ALT < 7 L Alkaline Phosphatase 44 L Total Protein 6.0 Albumin 3.8 Globulin 2.2 L Albumin/Globulin Ratio 1.7 Quality Measures Quality Measures VTE prophylaxis Advance care planning discussed with:: other Assessment & Plan Assessment Current Active Medications: Generic Name Dose Route Start Last Admin Trade Name Freq PRN Reason Stop Dose Admin Acetaminophen 650 mg 08/20/25 11:09 Acetaminophen 325 Mg Tablet PO 09/19/25 11:08 Q6H PRN Fever >101.5 Acetaminophen 650 mg 08/20/25 11:13 Acetaminophen 325 Mg Tablet PO 09/19/25 11:12 Q6H PRN PAIN SCALE 1-3 (mild Hydrocodone Bitart/Acetaminophen 1 tab 08/20/25 11:13 08/22/25 08:17 Hydrocodone/Apap 5/325 Tablet PO 08/25/25 11:12 1 tab Q6HR PRN Administration PAIN SCALE 4-6 (Moderate Al Hydrox/Mg Hydrox/Simethicone 15 ml 08/21/25 14:10 08/22/25 06:15 Mg Hyd/Al Hyd/Maximo (Maalox Reg) Susp 30 Ml Udc PO 09/20/25 13:59 15 ml Q4HR MARIA ESTHER Administration Albuterol/Ipratropium 3 ml 08/20/25 11:24 Albuterol/Ipratropium (Duoneb) Rt [place] 3 Ml Nebu INH 09/19/25 12:59 Q6HRRT PRN SOB/Wheeze Pantoprazole Sodium 80 mg in 100 mls @ 10 mls/hr 08/21/25 07:55 08/22/25 06:13 Protonix/Ns 80mg Iv Premix IV 08/24/25 05:54 10 mls/hr Q10H MARIA ESTHER Administration Octreotide Acetate 1,000 mcg/ 102 mls @ 5.1 mls/hr 08/21/25 10:17 08/21/25 10:58 Sodium Chloride IV 08/26/25 10:16 50 mcg/hr .Q20H MARIA ESTHER 5.1 mls/hr Protocol Administration 50 MCG/HR Labetalol HCl 10 mg 08/20/25 12:23 08/21/25 05:34 Labetalol Inj 5 Mg/Ml Vial 20 Ml IVP 09/19/25 12:22 10 mg Q4HR PRN Administration SBP > 160mmHg Metoprolol Succinate 25 mg 08/21/25 09:00 08/22/25 08:06 Metoprolol Succinate Xl 25 Mg Tabcr PO 09/20/25 08:59 25 mg QDAY MARIA ESTHER Administration Morphine Sulfate 2 mg 08/20/25 11:13 08/21/25 00:51 Morphine Sulf Inj 4 Mg/Ml Vial IVP 08/25/25 11:12 2 mg Q4HR PRN Administration PAIN SCALE 7-10 (Severe Ondansetron HCl 4 mg 08/20/25 11:09 08/21/25 05:34 Ondansetron Inj 2 Mg/Ml Inj 2 Ml IVP 09/19/25 11:08 4 mg Q6H PRN Administration NAUSEA OR VOMITING Protocol Sucralfate 1 gm 08/21/25 14:09 08/22/25 06:15 Sucralfate Susp 1 Gm/10 Ml Udc PO 09/20/25 12:59 1 gm QID MARIA ESTHER Administration Plan 65-year-old male with past medical history of hypertension, hiatal hernia status postrepair, history of ulcer status post Endo clip 02/2025, GERD and chronic smoker who presented to [facility] emergency department with a chief complaint of hematemesis. Patient admitted for GI bleed workup. Cardiology consulted for elevated troponin likely demand ischemia secondary to GI bleed along with heart failure with preserved ejection fraction #Heart failure with preserved ejection fraction, ejection fraction 45-50% #Grade 1 diastolic dysfunction #Mild concentric hypertrophy #Mild aortic valve regurgitation #Trace tricuspid valve regurgitation Class II NYHA Heart Failure Classification Patient does not appear to be in acute heart failure exacerbation as he does not have any clinical signs of heart failure Patient is on room air, no peripheral edema no JVD or crackles on lung auscultation Echo on 08/20/2025 shows normal by two-dimensional, color flow imaging, and Doppler interrogation. Left ventricle size is normal and systolic function is mildly reduced. Estimated ejection fraction is 45-50%. There is grade I diastolic dysfunction. There is mild concentric hypertrophy noted. Right ventricle chamber size and systolic function. There is mild aortic valve regurgitation. There is trace tricuspid valve regurgitation. Plan: Start GDMT as tolerable Patient appears to be on metoprolol succinate 25 mg for hypertension, continue for GDMT Consider adding JASPAL/ARB/ARNI, spironolactone Follow-up with cardiology for cath within 1 to 2 weeks of discharge #Elevated troponin, peaked and downtrended #NSTEMI type II Still having L side chest pain Presented with troponin that has plateaued since admission from 0.082-0.072 on 5 different readings No concerning EKG changes noted Echo as above shows normal left ventricular size and function Plan: Treat underlying cause of demand ischemia, likely GI bleed Stop trending troponin Monitor for any changes in symptoms or chest pain Follow-up with cardiology outpatient #GI bleed, likely upper #Hematemesis #History of gastric ulcer #History of hiatal hernia repair #Anemia of blood loss #Hypertension #History of tobacco dependence #Protein calorie malnutrition, BMI 16.4 Patient appears much older than stated age and cachectic, there is some concern for possible underlying malignancy. This case was discussed with my attending physician, Dr. Timmons. Daljit Lopez, PGY1
[2025-08-22] MEDS: OCTREOTIDE ACET INJ 1,000 MCG in SODIUM CHLORIDE 0.9% 100 ML 5.1 MCG IV (11:13)
--- NOTE | 2025-08-22 11:20 | PC.CC ---
Addendum entered by Ever Demarco RN 08/22/25 15:33: 1530: Called Grace with [facility] informed her of transport ETA to our hospital of 1640. 1522: Ekta w/ dispatch called to confirm transport and gather information to complete the arrangement. 1516: Called Tele, spoke to Michael. Informed Michael of transport ETA. 1514: Called [facility] again to f/u on transport, Sourav stated [facility] just accepted flight. ETA to airport is 1627, ETA to hospital is approx 1640. 1506: PCS form sent via [employer] to dispatch 1447: called [facility] to set up transport, weather check and flight check started. They will call me back 1440: Added DC summary and 72 hour medication sheets to packets. [facility] packet created. Transfer packet w/ 1 CD and [facility] packet left with the patient's chart 1432: Pt agreeable to transfer, signed the transfer form. 1400: Informed Dr. Preston about transfer during IDT rounding, he signed all documents. Discussed the protonix and oceotride gtt, he stated he will discuss with Dr Tate. 1346: received call from Grace ayoub/ [facility], [facility] [facility]. Grace stated her nurse already got report from the bedside nurse in Tele. Addendum entered by Ever Demarco RN 08/22/25 12:40: 1220: received call from Grace ayoub/ [facility], she stated pt has been accepted by Dr. Cruz. She requested DC summary be faxed. She stated bed is pending and will call back with more details when bed becomes available. DC summary faxed. Transfer packet w/ 1 CD created. Original Note: 1110: Called [facility] TC back, spoke to [facility]. Transfer request initiated. She asked i send the clinicals again. She stated their policy is to call first then send clinicals. Clinicals sent again. 1108: spoke to Dr. Tate, informed him of [facility] transfer center request. He became upset as this was a doctor to doctor decision. I informed it still has to go through the transfer centers to facilitate the transfer. He stated the doctor is Dr. Raleigh Howe General Surgeon for exploration and possible dissection of gastric ulcer/tumor. 1106: spoke to Dr. Madden, informed him that i could not initiate transfer request without the specific procedure requested. He asked me to call Dr. Tate. Informed him to ask Dr. Godinez to document the reason she is unable to do a surgical intervention. 1104: clinicals sent to [facility]. Called to initiate transfer, Sandirosi stated we need the specific procedure required before transfer request can be inititated. 1042: received new transfer ref for general surgery for bleeding gastric ulcer (roz class 1) poss malignancy. 1041: received an transfer/dc order w/ missing service line. Spoke to Dr. Caceres, asked him to enter the pulido coord ref instead. Also clarified if this is a GI or gen surg. Need to send to [facility] as requested by Dr. Tate. Per Dr. Madden, Dr. Tate has been in communication with DR. Howe
--- NOTE | 2025-08-22 12:49 | ESDS_ITS ---
<Statement entered by Jeff Madden MD - 08/22/25 13:23> Patient seen and examined at bedside. I discussed and supervised with the applications intern physician who took care of this patient. I personally saw and examined the patient. I agree with most of the assessment and plan. Plan of care discussed with attending Dr. Mercer. Jeff Madden MD PGY-2 Planned Discharge Date 08/22/25 DS: Providers Provider Date of admission: 08/20/25 11:09 Primary care physician: Shagufta Francis NP Admitting Provider: Yossi Higuera DO Attending Provider on Admission: Yossi Higuera DO Consults: 08/20/25 09:44 Consult to Gastroenterology Routine Comment: hematemesis/GI bleed Consulting Provider: Allison Tate 08/20/25 19:08 Consult to Cardiology Routine Comment: New Onset HFmreF Consulting Provider: Darian Timmons 08/20/25 19:18 Referral Registered Dietitian Routine Comment: Protein calorie malnutrition, BMI 16.4 08/22/25 10:42 Referral - Generator Rebuilder Stat Service Needed for Transfer: General Surgery Addl Comments:: Bleeding gastric ulcer (Moi class 1b), possible malignancy Attending Provider on DC: Jose Ramon Cabrera DO Discharging Provider: Jose Ramon Cabrera DO DS: Diagnosis Problem List Completed Was Problem List Reviewed/Reconciled?: Yes Hospital Course Hospital Course Hospital course: Summary: Mr. Ramirez Beltran is a 65-year-old male with past medical history of hypertension, hiatal hernia status postrepair, history of ulcer status post Endo clip 02/2025, GERD and chronic smoker who presented to [facility] emergency department with a chief complaint of hematemesis. Patient admitted on 08/20/2025 for GI bleed workup. 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 GI recommended patient to be transferred to tertiary center for management of his bleeding ulcer. Patient was discharged on 08/21/2025 for transfer to tertiary center for higher level of care. ED course: ED Vitals: On presentation blood pressure 147/105, heart rate 94, respiratory rate 19, temp 98.3, O2 sat 99 on room air ED Labs: Fingerstick in ED 106, CBC remarkable for hemoglobin 12.5, hematocrit 37.3. CMP remarkable for potassium 3.3, ammonia less than 10, troponin 0.082, amylase 147 lipase 142. Urine analysis remarkable for ketones 2+ ED Imaging: Chest x-ray shows COPD pattern, no pneumonia ED Treatment:Patient was given Protonix 80 mg bolus, 1 L NS bolus, Zofran 4 mg, morphine 2 mg, octreotide bolus and was started on octreotide gtt. in the emergency department. Hospital Course: Upon admission to the hospital, patient was given IV octreotide gtt, IV pantoprazole 40 mg twice daily. Patient's troponin peaked at 0.073, likely type II troponemia. Since admission, patient had constant episodes of hematemesis. On examination in the morning of 08/21, the patient was actively vomiting thick, bloody emesis. He was given IV Reglan 5mg x1 and IV Morphine 2mg x1. His BP was elevated peaking 224/113. Patient was already on IV Labetalol 10mg q4hr prn. Added his home medication Metoprolol Succinate 25mg po qd. His BP likely resulting from significant distress he was experiencing from vomiting. Patient received IV hydralazine 10mg x2 during EGD. EGD (08/21/2025) showed oozing gastric ulcer with oozing hemorrhage(Moi class Ib). The ulcer was very large and looked malignant. The bleeding vessel could not be endoscopically fixed. The ulcer would continue to bleed even if he were to receive embolization of the bleeding vessel. GI, Dr. Tate, recommended patient to be transferred to tertiary center and receive surgical consultation. Given Protonix drip 8mg/hr continuous infusion, Carafate suspension 1g 4 times daily.Maalox 15ml q4hr. CTA abd/pelvis (08/21/2025): showed large retrocardiac gastric hernia. NG tube was placed on 08/21. Patient's Hgb dropped from 10.8 to 9.6 on 08/22. Discharged on 08/22/2025 for transfer to tertiary center for higher level of care. Patient's vitals and labs are stable for the transfer. #GI bleed, likely upper #Hematemesis #History of gastric ulcer #History of hiatal hernia repair #Anemia of blood loss #Elevated troponin, likely type II #NSTEMI type II #Cardiac chest pain #Hypertension #Chronic inactive smoker, greater than 40 pack years #Electrolyte imbalance #Hypokalemia #Protein calorie malnutrition, BMI 16.4 Instructions: -You are being transferred to [facility] for surgical management for Gastric Ulcer -After your surgical treatment, you will continue your care and receive the appropriate treatments as determined by [facility]. -Please follow up with Dr. Iain Farmer (Cardiology) within 2 weeks as you may need a left heart cath. Assessment and plan discussed with my attending physician Dr. Mercer and Dr. Madden (PGY-2) Dr. Cabrera (PGY-1) - Internal medicine resident Status at Discharge Overall status at discharge: patient is not back to baseline Time Spent with Patient Time attestation: Total time spent providing and/or coordinating discharge services: 39 minutes Time spent: Greater than 30 minutes Exam Vital Signs Temp Pulse Resp BP Pulse Ox O2 Del Method O2 Flow Rate 97.9 F 67 15 145/95 H 97 Room Air 3 08/22/25 12:00 08/22/25 12:00 08/22/25 12:00 08/22/25 12:00 08/22/25 12:00 08/22/25 12:00 08/21/25 12:45 Narrative Exam General: AAO x3, In acute distress, Frail, Cachetic, Frequent hematemesis. Eye: Normal conjunctiva, no scleral icterus HENT: Normocephalic, atraumatic, hearing intact to conversation at normal volume, moist oral mucosa Neck: Supple, non-tender, no JVD, no lymphadenopathy Lungs: Symmetric chest rise, Clear to auscultate bilaterally, No wheezing, rhonchi, crackles Heart: Peripheral pulses intact bilaterally, Regular Rate and Rhythm. Abdomen: Soft, non-tender, non-distended, no palpable masses, epigastric tenderness. Musculoskeletal: Normal range of motion and strength, No cyanosis or edema, No visible joint swelling Skin: Skin is warm, dry, no rashes or lesions. Psychiatric: Cooperative, appropriate mood and affect, Awake and alert, not agitated Neuro: Cranial nerves II-XII grossly intact. Sensations intact to light touch. Discharge Plan Plan Patient Disposition: Xfer Other Facility Pt Being Transferred to: [facility] Service Needed for Transfer: General Surgery Patient condition on transfer: Stable Care Plan Goals: -You are being transferred to [facility] for surgical management for Gastric Ulcer -After your surgical treatment, you will continue your care and receive the appropriate treatments as determined by [facility]. -Please follow up with Dr. Iain Farmer (Cardiology) within 2 weeks as you may need a left heart cath. Prescriptions/Referrals Prescriptions/Med Rec: Continued metoprolol succinate 25 mg Tablet Extended Release 24 Hr 25 mg PO DAILY famotidine 20 mg tablet 20 mg PO DAILY ergocalciferol (vitamin D2) 1,250 mcg (50,000 unit) capsule 50,000 unit PO .ONCE WEEK Patient Comments: 1 CAPSULE 1 TIME A WEEK metoclopramide HCl 10 mg tablet 10 mg PO QID Patient Comments: TAKE 1 TABLET BY MOUTH FOUR TIMES A DAY ondansetron 4 mg tablet,disintegrating 4 mg PO Q8H PRN (Reason: nausea and vomiting) Qty: 10 0RF pantoprazole 40 mg tablet,delayed release (DR/EC) 40 mg PO QDAY Qty: 30 0RF Discontinued ibuprofen 600 mg tablet 600 mg PO Q8H PRN (Reason: fever or pain) Qty: 20 0RF Referrals: Shagufta Francis NP [Primary Care Provider] Patient/Caregiver Discharge Instructions Print Language: Georgian Stand Alone Forms: [employer] Award Info., Patient Portal Info Letter Discharge Order Discharge Orders: Discharge (Routine); Ordered 08/22/25 Ordered By: Jeff Madden Quality Discharge Quality Measures VTE prophylaxis Attestestation Attestation I have seen and examined the patient. I was physically present for the borrego portions of the services provided including history, physical exam, diagnosis, treatment plans and orders. I agree with assessment and plan of care as documented by residents. Even though this this note was carefully revised there may still be minor errors in healthcare administrative assistant due to voice recognition software. Ariela Mercer MD
[2025-08-22 14:19] LABS: Hematocrit 28.3 % (41.0-53.0); Hemoglobin 9.5 g/dL (13.5-16.0)
--- NOTE | 2025-08-22 14:57 | PC.SS ---
EMERGENCY DEPARTMENT RN conducted bedside contact with the patient conduct initial assessment and to discuss discharge planning.? Patient confirmed demographic information.? Patient resides at home with partner, Magali Peña .? 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 Patient does not utilize any form of DME to assist with ambulation.? Patient does not utilize home oxygen.? Patient describes the ability to complete ADL?s independently.? Patient identified partner, Magali Peña as medical surrogate decision maker.? Patient?s PCP is Shagufta Francis.? Patient does not participate with dialysis.? Patient utilizes [facility] for medication services.? Plan is for the patient to return home at the time of discharge.? Family will provide transportation on behalf of the patient.? No further discharge needs identified by the patient.? No further intervention required at this time, social welfare clerk will be available to address any further concerns.? Next of Kin: Magali Casey D/C Plan: Home
[2025-08-22] MEDS: MORPHINE SULF INJ 4 MG/ML VIAL 2 MG IVP (16:28)
--- NOTE | 2025-08-22 18:18 | ESPR_ITS ---
Documentation for date of: 08/22/25 Subjective Subjective Interval history: Patient evaluated Spoke with Dr. Raleigh Howe at [facility] and the patient accepted in transfer 40 surgical intervention in the proximal body of the stomach to mid body large gastric ulcer Patient also has a significant hiatal hernia Hemoglobin hematocrit 9.5 and 28.3 Exam Vital Signs Temp Pulse Resp BP Pulse Ox O2 Del Method O2 Flow Rate 97.6 F 80 18 138/84 H 98 Room Air 3 08/22/25 16:00 08/22/25 16:00 08/22/25 16:00 08/22/25 16:00 08/22/25 16:00 08/22/25 16:00 08/21/25 12:45 Objective Labs 08/22/25 13:54 08/22/25 05:18 Labs: Laboratory Results - last 24 hr 08/21/25 08/22/25 08/22/25 20:00 05:18 13:54 WBC 12.0 H D RBC 3.44 L Hgb 10.8 L 9.6 L 9.5 L Hct 31.5 L 28.2 L 28.3 L MCV 82 MCH 27.9 MCHC 34.0 RDW Std Deviation 47.0 H Plt Count 223 Neut % (Auto) 87 H Lymph % (Auto) 7 L [place] % (Auto) 5 Eos % (Auto) 1 Baso % (Auto) 0 Neut # (Auto) 10.4 H Lymph # (Auto) 0.8 L [place] # (Auto) 0.6 Eos # (Auto) 0.1 Baso # (Auto) 0.0 Immature Gran # (Auto) 0.07 H Absolute Nucleated RBC 0.00 Immature Gran % 1 H Nucleated RBC % 0 Sodium 141 Potassium 3.6 Chloride 106 Carbon Dioxide 24.4 Anion Gap 11 BUN 12 Creatinine 0.8 Estim Creat Clear Calc 72.4 eGFR > 60 BUN/Creatinine Ratio 15 Glucose 121 H Calculated Osmolality 281 Calcium 9.3 Corrected Calcium 9.5 Phosphorus 2.4 Magnesium 2.0 Total Bilirubin 0.4 AST 12 ALT < 7 L Alkaline Phosphatase 44 L Total Protein 6.0 Albumin 3.8 Globulin 2.2 L Albumin/Globulin Ratio 1.7 Impressions Impression: Large gastric ulcer Hiatal hernia Upper GI bleed recurrent Test the patient to [facility] under the care of Dr. Raleigh Howe who is the accepting physician Assessment & Plan A&P Narrative Hematemesis most likely due to the gastric ulcer previously seen on endoscopy on 02/13/2025 although patient did have a Kelly-Taylor tear additional ulcer hemorrhagic gastritis or distal esophageal ulcers Plan Serial CBC Protonix drip at 8 mg/h Clear liquid diet till 12 midnight then n.p.o. Consent obtained for fiberoptic esophagogastroduodenoscopy with possible biopsy possible therapeutic intervention under intravenous moderate sedation Will follow the patient Other medical problems include Essential hypertension Hiatal hernia Previous history of gastric ulcer Thank you very much for the opportunity to participate in the care of this patient Time Spent With Patient Time: Total time spent is greater than 50% in coordination of care (as documented) at patient's floor/unit and/or counseling patient:
--- NOTE | 2025-08-22 18:38 | PC.NURSE ---
Pt. transferred to [facility] in stable condition for Higher level of care, Gastric Surgeon not available. Transported with IV sites x2, all personal belongings, Phone and foam charger. Transported by [facility] and team. Packet sent for receiving facility.
== END 2025-08-22 17:28 | disposition other institution (70) | DRG 377 ==
LOC: SERX 09:57 → SERHOLD 11:45 → S2NX 14:35
PROVIDERS: Specialist; Student in an Organized Health Care Education/Training Program; Admitting Provider Student in an Organized Health Care Education/Training Program; Emergency Provider Emergency Medicine; PCP Nurse Practitioner Family; Visit Provider Student in an Organized Health Care Education/Training Program
PROC: 0DJ08ZZ Inspection of Upper Intestinal Tract, Via Natural or Artificial Opening Endoscopic (ICD-10-PCS; CPT 43239; principal; 2025-08-21 17:00)
DX: K25.4 Chronic or unspecified gastric ulcer with hemorrhage (principal); I21.A1 Myocardial infarction type 2; D62 Acute posthemorrhagic anemia; E46 Unspecified protein-calorie malnutrition; Z68.1 Body mass index [BMI] 19.9 or less, adult; I50.30 Unspecified diastolic (congestive) heart failure; R64 Cachexia; K22.6 Gastro-esophageal laceration-hemorrhage syndrome; I11.0 Hypertensive heart disease with heart failure; G89.29 Other chronic pain; J44.9 Chronic obstructive pulmonary disease, unspecified; K21.9 Gastro-esophageal reflux disease without esophagitis; E87.6 Hypokalemia; K29.71 Gastritis, unspecified, with bleeding; K44.9 Diaphragmatic hernia without obstruction or gangrene; Z79.82 Long term (current) use of aspirin
CPT/HCPCS: 36415; 71045; 74018; 74174; 80053; 80061; 81001; 82140; 82150; 83690; 83735; 84100; 84439; 84443; 84484; 85014; 85018; 85025; 85610; 85730; 86850; 86900; 86901; 93005; 93306; 94664; 96361; 96365; 96374; 96375; 99284; A4649; J0168; J0360; J1200; J2250; J2270; J2354; J2405; J2470; J2765; J3010; J3475; J3480; J3490; J7030; J7050; Q9967; A9270; J1920